=== PATIENT | male | born 1955 | race Caucasian/White ===

== ENCOUNTER 2020-12-22 20:32 | Inpatient (IN) | payer MEDICARE, OTHER ==
[~2020-12-22] VITALS: Ht 172.7 cm; Wt 53.5 kg
--- NOTE | 2020-12-22 21:14 | NUR ---
ELLIOTT (SISTER) [phone] JULIA (NIECE) [phone]
[2020-12-22] MEDS ORDERED: ONDANSETRON HCL/PF 4 MG/2 ML VIAL ONE (21:21)
[2020-12-22] MEDS ORDERED: IV NS 0.9% 1,000 ML BAG IV ONE (21:30)
[2020-12-22] MEDS ORDERED: ONDANSETRON HCL/PF 4 MG/2 ML VIAL IVP ONE (21:30)
[2020-12-22] MEDS ORDERED: PIPERACILLIN /TAZOBACTAM 3.375 G in IV D5W 50 ML IV ONE (21:30)
--- NOTE | 2020-12-22 21:30 | NUR ---
PT TAKEN TO CT
[2020-12-22] MEDS ORDERED: PIPERACILLIN /TAZOBACTAM 3.375 G VIAL IV ONE (21:35)
--- NOTE | 2020-12-22 21:49 | NUR ---
CONSENT FOR PICC INSERTION OBTAINED
[2020-12-22 22:27] LABS: BASOPHILS % (AUTO) 0.1 % (0.0-2.0); HEMOGLOBIN 10.5 g/dL (13.5-17.5); LYMPHOCYTES # (AUTO) 0.4 K/uL (0.8-4.8); MONOCYTES # (AUTO) 0.8 K/uL (0.1-1.30); NEUTROPHILS # (AUTO) 7.7 K/uL (1.8-8.9)
[2020-12-22 22:39] LABS: CALCIUM, SERUM 9.3 mg/dL (8.5-10.1); CARBON DIOXIDE 33 mmol/L (21-32); CHLORIDE 92 mmol/L (98-107); CREATININE 2.5 mg/dL (0.6-1.3); GLUCOSE 55 mg/dL (74-106); POTASSIUM 3.4 mmol/L (3.5-5.1); SODIUM SERUM 132 mmol/L (136-145); UREA NITROGEN, BLOOD 29 mg/dL (7-18)
[2020-12-22 22:45] LABS: ALANINE AMINOTRANSFERASE 40 U/L (12-78); ALBUMIN 2.6 g/dL (3.4-5.0); ALKALINE PHOSPHATASE 439 U/L (46-116); ASPARTATE AMINOTRANSFERASE 25 U/L (15-37); BILIRUBIN,DIRECT 0.2 mg/dL (0.0-0.2); BILIRUBIN,TOTAL 0.4 mg/dL (0.2-1.0); TOTAL PROTEIN, SERUM 6.9 g/dL (6.4-8.2)
[2020-12-22 22:46] LABS: EOSINOPHILS % (AUTO) 0.2 % (0.0-6.0); HEMATOCRIT 33 % (39-51); LYMPHOCYTES % (AUTO) 4.9 % (20.0-44.0); MEAN CORPUSCULAR HGB CONC 32 g/dl (31.0-36.0); MEAN CORPUSCULAR VOLUME 64 fL (80-96); NEUTROPHILS % (AUTO) 85.8 % (43.0-81.0); PLATELET COUNT (AUTO) 179 K/uL (150-450); RED BLOOD CELL COUNT(AUTO) 5.09 MIL/uL (4.5-6.0)
--- NOTE | 2020-12-22 23:32 | NUR ---
MIRANDA ([facility]) [phone]
[2020-12-23] MEDS ORDERED: IPRATROPIUM NEB FS 0.5 MG/2.5 ML AMPUL.NEB NEB ONE
[2020-12-23] MEDS ORDERED: ALBUTEROL FS 2.5 MG/3 ML VIAL.NEB NEB ONE
[2020-12-23] MEDS ORDERED: ONDANSETRON HCL/PF 4 MG/2 ML VIAL IVP PRN
[2020-12-23] MEDS ORDERED: methylPREDNISolone SOD SUCC 125 MG/2ML VIAL IV ONE
[2020-12-23 00:08] LABS: ABG BASE EXCESS 7.7 mmol/L; ABG OXYGEN SATURATION 99.1 % (92.0-98.5); ABG PCO2 32.5 mmHg (35.0-45.0); ABG PH 7.579 (7.350-7.450); ABG PO2 184.9 mmHg (75.0-100.0); AaDO2 495.6 mmHg; COHb 3.8 % (0.5-1.5); MetHb 0.3 % (0.0-1.5); SITE, ABG Right Radial; VENT MODE, BG NON REBREATHER
[2020-12-23] MEDS ORDERED: ALBUTEROL FS 2.5 MG/3 ML VIAL.NEB ONE (00:12)
[2020-12-23] MEDS ORDERED: IPRATROPIUM NEB FS 0.5 MG/2.5 ML AMPUL.NEB ONE (00:12)
[2020-12-23] MEDS ORDERED: methylPREDNISolone SOD SUCC 125 MG/2ML VIAL ONE (00:32)
[2020-12-23] MEDS ORDERED: DEXTROSE 50%-WATER 50 ML DISP.SYRIN IV PRN (01:00)
--- NOTE | 2020-12-23 01:29 | NUR ---
COVID SWAB COLLECETED AND SENT TO LAB
[2020-12-23 03:01] LABS: BAND % (MANUAL) 10 % (0.0-5.0); LYMPHOCYTES % (MANUAL) 3 % (16-48); METAMYELOCYTES % 1 % (0-0); MONOCYTES % (MANUAL) 6 % (0-11.0); NEUTROPHILS % (MANUAL) 80 (42-76)
--- NOTE | 2020-12-23 05:44 | NUR ---
ROOM 107 TELE
[2020-12-23 05:48] LABS: BASOPHILS % (AUTO) 0.1 % (0.0-2.0); HEMATOCRIT 33 % (39-51); HEMOGLOBIN 10.6 g/dL (13.5-17.5); LYMPHOCYTES # (AUTO) 0.3 K/uL (0.8-4.8); LYMPHOCYTES % (AUTO) 4.5 % (20.0-44.0); MEAN CORPUSCULAR HGB CONC 33 g/dl (31.0-36.0); MEAN CORPUSCULAR VOLUME 64 fL (80-96); MONOCYTES # (AUTO) 0.5 K/uL (0.1-1.30); MONOCYTES % (AUTO) 6.9 % (2.0-12.0); NEUTROPHILS % (AUTO) 88.5 % (43.0-81.0); PLATELET COUNT (AUTO) 148 K/uL (150-450); RED BLOOD CELL COUNT(AUTO) 5.15 MIL/uL (4.5-6.0); WHITE BLOOD COUNT (AUTO) 6.8 K/uL (4.3-11.0)
[2020-12-23 06:03] LABS: CALCIUM, SERUM 9.1 mg/dL (8.5-10.1); CREATININE 2.5 mg/dL (0.6-1.3); MAGNESIUM 2.4 mg/dL (1.8-2.4); POTASSIUM 3.6 mmol/L (3.5-5.1)
[2020-12-23 06:17] LABS: PHOSPHORUS 8.2 mg/dL (2.5-4.9)
[2020-12-23] MEDS ORDERED: POTASSIUM CL. PREMIX PERIPHER. 100 ML ONE (06:27)
[2020-12-23] MEDS: POTASSIUM CL. PREMIX PERIPHER. 50 ML IV SCH ×2 (06:36→07:36)
[2020-12-23] MEDS: BLOOD SUGAR DIAGNOSTIC 1 EACH STRIP IN SCH ×3 (06:36→17:40)
[2020-12-23] MEDS ORDERED: IV NS 0.9% 1,000 ML BAG IV ONE (07:30)
--- NOTE | 2020-12-23 08:16 | NUR ---
wheeled patient via gurney accompanied by rn and emt in no distress rn assigned at bedside to assume care.
--- NOTE | 2020-12-23 08:30 | NUR ---
local telephone operator note received patient from ER no upper dentures, stated that lost in er , STATED THAT PLACED IN POCKED IN GOWN , CALLED ER UNABLE TO FOUND DENTURES
--- NOTE | 2020-12-23 08:30 | NUR ---
HAY CHOPPER NOTE RECEIVED PATIENT FROM ER WITH DX SYNCOPE ALERT ORIENTED, UNDER CARE DR NELSON , PLACED ON TELE MONITOR ST117 , ON 8L SIMPLE MASK SATURATION 96%, ABDOMEN STILL DISTENDED ON N G TUBE TO LOWER INTERMITTED SUCTION WITH 600 ML DARK GREEN DRAINAGE NOTED , , RT UPPER ARM WITH PICC VEE IN PLACE, VS TAKEN ,CALL LIGHT WITHJIN REACH, WILL CONT TO MONITOR CLOSELY HOSPITAL ORIENTATION DONE , BED IN LOWEST AND LOCKED POSITION,
[2020-12-23 09:19] VITALS: BP 106/58
[2020-12-23] MEDS ORDERED: DIATR MEGLU/DIATRIZOATE SODIUM 120 ML BOTTLE (GASTROGRAPHIN) ONE (09:28)
--- NOTE | 2020-12-23 09:48 | NUR ---
TRACER BULLET CHARGING MACHINE OPERATOR NOTE CONSENT FOR X RAY SMALL BOWEL THROUGH SIGNED , TAKEN TO RADIOLOGY
--- NOTE | 2020-12-23 11:24 | NUR ---
telemetry registered nurse note unable to give Meds at this time patient in radiology department for test
[2020-12-23 12:25] VITALS: BP 92/63
[2020-12-23] MEDS ORDERED: ATOR10TA PO (12:25)
[2020-12-23] MEDS ORDERED: OLAN20TA3 PO (12:25)
[2020-12-23] MEDS ORDERED: ONDA-97 PO (12:25)
[2020-12-23] MEDS ORDERED: ALFU10TA10 PO (12:25)
[2020-12-23] MEDS ORDERED: BENZ1TAB7 PO (12:25)
[2020-12-23] MEDS ORDERED: METO25TA3 PO (12:25)
[2020-12-23] MEDS ORDERED: MULT-447 PO (12:25)
[2020-12-23] MEDS ORDERED: GABA600T12 PO (12:25)
[2020-12-23] MEDS ORDERED: CHOL100062 PO (12:25)
[2020-12-23] MEDS ORDERED: RISP0.2515 PO (12:25)
[2020-12-23] MEDS ORDERED: HYDR-4303 PO (12:25)
[2020-12-23] MEDS ORDERED: LITH300T PO (12:25)
[2020-12-23] MEDS ORDERED: LOPE2TAB25 PO (12:25)
[2020-12-23] MEDS ORDERED: INSU100V7 SQ (12:25)
[2020-12-23 12:30] LABS: BAND % (MANUAL) 5 % (0.0-5.0); LYMPHOCYTES % (MANUAL) 3 % (16-48); MONOCYTES % (MANUAL) 3 % (0-11.0); NEUTROPHILS % (MANUAL) 89 (42-76)
--- NOTE | 2020-12-23 12:43 | NUR ---
technician telecommunication systems note patient back from radiology back to intermitted suction,placed on o2 5 l nc saturation 98%, seen by pt able to get up with min assistance, seen and med lis nurse Addendum: 12/23/20 at 1250 by SHANIKA SPARKS RN spoke with dr ojeda surgeon will come soon to see patient
[2020-12-23] MEDS: HEPARIN SODIUM, PORCINE 5000 UNITS/1 ML VIAL SQ SCH ×2 (12:54→21:15)
[2020-12-23] MEDS: methylPREDNISolone SOD SUCC 40 MG/ML VIAL IV SCH (12:54)
[2020-12-23] MEDS: INSULIN REGULAR, HUMAN 100 UNIT/ML 3 ML VIAL SQ PRN ×2 (13:09→17:48)
[2020-12-23] MEDS ORDERED: IV NS 0.9% 1,000 ML IV PRN ×2 (15:00→16:00)
--- NOTE | 2020-12-23 15:00 | NUR ---
PILLOWCASE TURNER NOTE DR SNYDER AT BEDSIDE AWARE THAT PATIENT ON LOWER INTERMITTED SUCTION WITH 800 ML OF GREENISH DARK COLOR DRAINAGE
--- NOTE | 2020-12-23 15:07 | NUR ---
FACILITY SALES AND ADMIN NOTE DR SNYDER AT BEDSIDE NOTIFIED THAT PATIENT ON NPO ,OK TO START IVF AT 200 ML PER HOUR X5 HOURS THAT CHANGE TO 150 ML PER HOUR ALSO ORDERED PROTONIX AND OK ICE CHIPS AND ICE WATER , WILL MONITOR
[2020-12-23] MEDS: PANTOPRAZOLE 40 MG VIAL IV SCH (15:25)
[2020-12-23 16:00] VITALS: BP 110/55
--- NOTE | 2020-12-23 18:53 | NUR ---
RN CLOSING NOTE PT IS LYING IN BED WITH HOB AT 30 DEGREES. PT IS ALERT ORIENTED, UNDER CARE DR NELSON , PLACED ON TELE MONITOR ST117 , ON 5L NC SATURATION 98%, ABDOMEN STILL DISTENDED ON N G TUBE TO LOWER INTERMITTED SUCTION WITH 1800 ML DARK GREEN DRAINAGE NOTED, RT UPPER ARM WITH PICC VEE IN PLACE PATENT AND FLUSHED. BED IS LOCKED IN THE LOWEST POSITION, 2 GUARD RAILS RAISED, CALL JEFF WITHIN REACH, AND ALL HOSPITAL SAFETY PRECAUTIONS ARE IN PLACE. ALL PT NEEDS MET. WILL ENDORSE TO RECORD CHANGER NURSE FOR NATHANIEL. Addendum: 12/23/20 at 1929 by SHANIKA SPARKS RN noted patient urinated well keep clean dry
--- NOTE | 2020-12-23 19:00 | NUR ---
RN OPENING NOTES RECEIVED REPORT FROM MORNING NURSE. PATIENT IN BED A/O X3. ON OXYGEN INHALATION AT 4LPM VIA NASAL CANULA TOLERATED WELL SATURATION OF 99%. NO SOB, NO DISTRESS, NO PAIN AT THIS TIME. WITH IV PICC LINE AT ANDRES WITH 3 LUMENS PATENT FLUSHES WELL, NO INFILTRATION NOTED.WITH ONGOING IVF OF PNS 1L @ 150 CC/HR. WITH NGT CONNECTED TO LOW INTERMITTENT SUCTION DRAINING WITH GREENISH OUTPUT.ON [facility] PHYSICIAN WITH SINUS TACH AT 107'S. STILL ON NPO BUT OK WITH ICE CHIPS AND ICE WATER PER MD.ALL SAFETY MEASURES IN PLACE, HOB ELEVATED, SIDERAILS UP FOR SAFETY. CALL LIGHT WITHIN REACH. VITAL SIGHS TAKEN AND RECORDED. WILL CONTINUE TO MONITOR CLOSELY.
[2020-12-23] MEDS: IV NS 0.9% 1,000 ML IV PRN (20:00)
[2020-12-24] VITALS (23 sets, daily range): BP systolic 82–142; BP diastolic 29–71
--- NOTE | 2020-12-24 | NUR ---
RN NOTES BS 184MG/DL REGULAR INSULIN 3 UNITS GIVEN PER SLIDING SCALE
[2020-12-24] MEDS: INSULIN REGULAR, HUMAN 100 UNIT/ML 3 ML VIAL SQ PRN ×3 (00:01→23:57)
[2020-12-24] MEDS: BLOOD SUGAR DIAGNOSTIC 1 EACH STRIP IN SCH ×5 (02:04→23:55)
[2020-12-24] MEDS: IV NS 0.9% 1,000 ML IV PRN ×2 (03:07→10:24)
--- NOTE | 2020-12-24 06:57 | NUR ---
RN CLOSING NOTES PATIENT IN BED. A/OX3. STILL WITH IV PICC LINE PATENT CONNECTED TO PNS 1L @150CC/HR. WITH NGT CONNECTED TO LOW INTERMITTENT SUCTION WITH 500 CC BROWNISH/GREENISH OUTPUT. WITH OXYGEN INHALATION @4L VIA NC TOLERATED WELL WITH 99% SATURATION. SAFETY MEASURES IN PLACE AT ALL TIMES, HOB ELEVATED, CALL LIGHT WITHIN REACH. ALL NEEDS ATTENDED PROMPTLY. ENDORSED.
--- NOTE | 2020-12-24 07:40 | NUR ---
RN OPENING NOTE PATIENT RECEIVED IN BED, AWAKE, A&OX3. PATIENT ON 4L O2 NC WITH NO SIGNS OF LABORED BREATHING AT THIS TIME. PATIENT DOES NOT REPORT PAIN AND DOES NOT SHOW SIGNS OF DISTRESS. NG TUBE IN PLACE ON LOW INTERMITTENT SUCTIONING. RIGHT UA PICC LINE IN PLACE RUNNING NS AT 150CC/HR, LINE PATENT WITH NO SIGNS OF INFILTRATION. BED LOCKED AND IN LOWEST POSITION, CALL LIGHT WITHIN REACH, 2 SIDE RAILS UP, ALL SAFETY MEASURES IMPLEMENTED. WILL CONTINUE TO MONITOR.
[2020-12-24 08:03] LABS: ALBUMIN 2.1 g/dL (3.4-5.0); BILIRUBIN,TOTAL 0.4 mg/dL (0.2-1.0); CALCIUM, SERUM 8.6 mg/dL (8.5-10.1); CREATININE 1.4 mg/dL (0.6-1.3); MAGNESIUM 2.5 mg/dL (1.8-2.4); PHOSPHORUS 4.7 mg/dL (2.5-4.9); POTASSIUM 3.8 mmol/L (3.5-5.1); TOTAL PROTEIN, SERUM 5.7 g/dL (6.4-8.2)
[2020-12-24] MEDS: methylPREDNISolone SOD SUCC 40 MG/ML VIAL IV SCH (08:50)
[2020-12-24] MEDS: HEPARIN SODIUM, PORCINE 5000 UNITS/1 ML VIAL SQ SCH ×2 (08:50→22:07)
[2020-12-24] MEDS: PANTOPRAZOLE 40 MG VIAL IV SCH (08:50)
[2020-12-24 09:02] LABS: BASOPHILS % (AUTO) 0.2 % (0.0-2.0); EOSINOPHILS % (AUTO) 0.2 % (0.0-6.0); HEMATOCRIT 27 % (39-51); HEMOGLOBIN 8.5 g/dL (13.5-17.5); LYMPHOCYTES # (AUTO) 0.5 K/uL (0.8-4.8); LYMPHOCYTES % (AUTO) 11.4 % (20.0-44.0); MEAN CORPUSCULAR HGB CONC 32 g/dl (31.0-36.0); MEAN CORPUSCULAR VOLUME 64 fL (80-96); MONOCYTES # (AUTO) 0.6 K/uL (0.1-1.30); MONOCYTES % (AUTO) 14.6 % (2.0-12.0); NEUTROPHILS # (AUTO) 3.2 K/uL (1.8-8.9); NEUTROPHILS % (AUTO) 73.6 % (43.0-81.0); PLATELET COUNT (AUTO) 120 K/uL (150-450); RED BLOOD CELL COUNT(AUTO) 4.17 MIL/uL (4.5-6.0); WHITE BLOOD COUNT (AUTO) 4.4 K/uL (4.3-11.0)
[2020-12-24 10:49] LABS: IRON, SERUM 15 ug/dl (50-175); TOTAL IRON BINDING CAPACITY 179 ug/dl (250-450)
[2020-12-24 11:04] LABS: FERRITIN 119 ng/mL (8-388)
--- NOTE | 2020-12-24 14:35 | NUR ---
RN NOTES; PT PICKED UP BY TEST SPECIALIST FOR PROCEDURE. PT NPO. BLOOD TYPE MATCHING DONE. ALL CONSENTS SIGNED. PROCEDURE EXPLAINED, PT STATES UNDERSTANDING. PT LEFT UNIT IN STABLE CONDITION.
[2020-12-24] MEDS ORDERED: FENTANYL PF 250MCG/5ML AMPUL ONE ×2 (14:43)
[2020-12-24] MEDS ORDERED: HYDROMORPHONE INJ 2 MG/ML DISP.SYRIN ONE (14:43)
[2020-12-24] MEDS ORDERED: FAMOTIDINE/PF INJ 20 MG/2 ML VIAL IV ONE (14:44)
[2020-12-24] MEDS ORDERED: MIDAZOLAM HCL 2 MG/2ML VIAL ONE (14:44)
[2020-12-24] MEDS ORDERED: ROCURONIUM BROMIDE 50 MG/5 ML ONE (14:45)
[2020-12-24] MEDS ORDERED: LIDOCAINE 1% INJ 50 ML MDV IJ ONE (15:39)
[2020-12-24] MEDS ORDERED: BUPIVACAINE MPF 0.5% W/EPI INJ 30 ML VIAL ONE (15:39)
[2020-12-24] MEDS ORDERED: BACITRACIN ZINC OINT PACKET 1 EA PACKET TP ONE (16:11)
--- NOTE | 2020-12-24 17:40 | NUR ---
RT Pt was brought from OR to ICU, pt received orally intubated with 8.0 ET tube secured at 24cm at the lip line. Equal bilateral breath sounds and chest rise noted. Pt placed on mechanical ventilation with noted settings. Vent is plugged into red outlet. Pt is agitated at this time, no SOB or respiratory distress noted. Addendum: 12/24/20 at 1745 by THIAGO LANDAVERDE RT Amended: Links added.
[2020-12-24] MEDS: IV LR 1000 ML 1,000 ML IV PRN (18:21)
[2020-12-24] MEDS ORDERED: PROPOFOL 100 ML IV PRN (18:30)
[2020-12-24] MEDS ORDERED: PROPOFOL 10MG/ML 50ML 50 ML IV PRN (18:30)
--- NOTE | 2020-12-24 19:30 | NUR ---
BUSINESS REPRESENTATIVE NOTE RECEIVED REPORT FROM OR NURSE @2195,PATIENT S/P EXPLORATORY LAP AND RELEASE OF SMALL BOWEL OBSTRUCTION.INTUBATED10/23@LIP LEVEL.AGITATED.MACHADO CATH IN PLACE DRAINING CLEAR YELLOW URINE.ANDRES PICCLINE WITH PROPOFOL AND IVF.CALL MADE TO SIMULATION ENGINEER .TRISH MADE AWARE THAT PATIENT STILL AGITATED WITH PROPOFOL 50MCG,OK TO GO UP TO 100MCG/KG .PLACED NEW ORDER.C XRAY SHOWS ET TUBE 6 CM ABOVE SUDHIR.TO ADJUST BY RT BY TRISH.RT MADE AWARE.NEW ORDER RECEIVED FOR PHENYLEPHRINE.BP IN 80'S.REPORT GIVEN TO KRANTHI RN PM NURSE FOR NATHANIEL. ALL BELONGINGS AT BEDSIDE INCLUDE DENTURES.
[2020-12-24] MEDS: PHENYLEPHRINE 50 MG in IV NS 0.9% 245 ML IV PRN (19:55)
[2020-12-24 19:57] LABS: ABG BASE EXCESS 0.6 mmol/L; ABG OXYGEN SATURATION 96.7 % (92.0-98.5); ABG PCO2 42.1 mmHg (35.0-45.0); ABG PO2 99.6 mmHg (75.0-100.0); AaDO2 209.5 mmHg; MetHb 0.5 % (0.0-1.5); O2Hb 96.2 % (94.0-97.0); PEEP,BG 5 cm H2O; SITE, ABG Right Brachial; VT, ABG 500 mL
--- NOTE | 2020-12-24 20:00 | NUR ---
RN NOTE RECEIVED PT WITH MILD AGITATION, ON PROFOPOL RUNNING, SLOWLY BEING SEDATED. ORALLY INTUBATED CONNECTED TO MECH VENT AC 16 TV 500 FIO2 50% P 5. NEOSYNEPHRINE STARTED ORDERED PER PROTOCOL. WITH NGT CONNECTED TO SUCTION, NOTED WITH DARK GREEN DRAINAGE. MID ABDOMEN SURGICAL SITE CLEAN DRY AND INTACT. NO SIGNS OF BLEEDING NOTED. MACHADO INPLACE, DRAINING YELLOW URINE. PT WITH BILATERAL WRIST RESTRAINTS, GOOD CIRCULATION. WILL CONTINUE TO MONITOR.
--- NOTE | 2020-12-24 20:30 | NUR ---
RN NOTE ABG RESULT RELAYED TO SHEA NELSON. NO ORDER WERE MADE.
[2020-12-24] MEDS: PROPOFOL 10MG/ML 50ML 50 ML IV PRN ×2 (21:32→23:41)
[2020-12-25] VITALS (90 sets, daily range): BP systolic 82–137; BP diastolic 49–87
[2020-12-25] MEDS: PROPOFOL 10MG/ML 50ML 50 ML IV PRN ×6 (01:01→08:58)
[2020-12-25] MEDS: IV LR 1000 ML 1,000 ML IV PRN ×2 (02:37→11:12)
--- NOTE | 2020-12-25 02:53 | NUR ---
RT NOTE ETT ADVANCED 2 CM TO 26CM LIP LINE. RN BOBBY AWARE.
--- NOTE | 2020-12-25 02:56 | NUR ---
RN NOTE PT WITH EPISODE OF WAKING UP,AGITATED. ON PROPOFOL, TITRATING PER PROTOCOL. CONTINUE ON NEOSYNEPHRINE. WILL CONTINUE TO MONITOR.
[2020-12-25 04:22] LABS: BASOPHILS % (AUTO) 0.1 % (0.0-2.0); EOSINOPHILS % (AUTO) 0.1 % (0.0-6.0); HEMATOCRIT 29 % (39-51); HEMOGLOBIN 9.2 g/dL (13.5-17.5); LYMPHOCYTES # (AUTO) 0.7 K/uL (0.8-4.8); MEAN CORPUSCULAR HGB CONC 32 g/dl (31.0-36.0); MEAN CORPUSCULAR VOLUME 64 fL (80-96); MONOCYTES # (AUTO) 1.4 K/uL (0.1-1.30); MONOCYTES % (AUTO) 7.4 % (2.0-12.0); NEUTROPHILS # (AUTO) 16.1 K/uL (1.8-8.9); NEUTROPHILS % (AUTO) 88.4 % (43.0-81.0); PLATELET COUNT (AUTO) 268 K/uL (150-450); RED BLOOD CELL COUNT(AUTO) 4.53 MIL/uL (4.5-6.0); WHITE BLOOD COUNT (AUTO) 18.2 K/uL (4.3-11.0)
[2020-12-25 04:43] LABS: ALBUMIN 2.1 g/dL (3.4-5.0); BILIRUBIN,TOTAL 0.4 mg/dL (0.2-1.0); CALCIUM, SERUM 8.4 mg/dL (8.5-10.1); CREATININE 0.9 mg/dL (0.6-1.3); MAGNESIUM 2.5 mg/dL (1.8-2.4); POTASSIUM 4.1 mmol/L (3.5-5.1); TOTAL PROTEIN, SERUM 5.6 g/dL (6.4-8.2)
[2020-12-25] MEDS: MORPHINE SULFATE INJ 2 MG/ML DISP.SYRIN IV PRN ×4 (04:56→09:41)
[2020-12-25] MEDS: INSULIN REGULAR, HUMAN 100 UNIT/ML 3 ML VIAL SQ PRN ×3 (06:06→23:08)
[2020-12-25] MEDS: BLOOD SUGAR DIAGNOSTIC 1 EACH STRIP IN SCH ×4 (06:06→23:07)
[2020-12-25] MEDS: PHENYLEPHRINE 50 MG in IV NS 0.9% 245 ML IV PRN (06:37)
--- NOTE | 2020-12-25 07:09 | NUR ---
RN NOTE PT ETTUBE ADJUSTED BY RT NOW ON 26CM. FIO2 AT 40% AC 16 TV 500 P 5. TOLERATING WELL. NO SIGNS OF DISTRESS NOTED. PT SEDATED ON PROPOFOL AT 85MCG/KG/MIN. CONTINUE ON NEOSYNEPHRINE AT 1.6MCG/KG/MN. LR AT 125ML/HR. ALL INFUSING WELL. NO SIGNS OF INFILTRATION NOTED. PT SR ON TELE MONITOR. WITH NGT CONNECTED TO INTERMITTENT SUCTION. WITH ABOUT 400ML GREENISH DRAINAGE. REMAIN ON BILATERAL WRIST RESTRAINTS WITH GOOD CIRCULATION, NO SKIN BREAKDOWN NOTED. MACHADO DRAINING WELL WITH CLEAR URINE OUTPUT. WILL ENDORSE TO NEXT SHIFT NURSE FOR NATHANIEL.
--- NOTE | 2020-12-25 07:30 | NUR ---
RADIO PERSONALITY OPENING NOTE ORALLY INTUBATED PT ON VENT SETTINGS PER MD ORDER: ETT8/26 AT LIP, AC 16, TV 500, FIO2 40%, PEEP 5, TOLERATING WELL, SPO2 > 98%, BREATHING EVEN AND UNLABORED. PT SEDATED ON PROPOFOL CURRENTLY AT 85MCG/KG/MIN BUT WILL INCREASE PER PROTOCOL PT IS AGITATED. PT ON NEOSYNEPHRINE AT 1.6 MCG/KG/MN WITH STABLE BP AND INFUSING LR AT 125ML/HR. PT ANDRES PICC FLUSHED AND PATENT WITH NO SIGNS OF INFILTRATION NOTED. PT SR HR IN 70s ON BEDSIDE MONITOR. PT NGT CONNECTED TO INTERMITTENT SUCTION, DARK GREEN DRAINAGE NOTED. PT ABD DRS C/D/I, NO S/S OF BLEEDING. PT ON BILATERAL SOFT WRIST RESTRAINTS WITH GOOD CIRCULATION. MACHADO DRAINING VIA GRAVITY WITH CLEAR URINE OUTPUT. ALL PT SAFETY PRECAUTIONS IN PLACE, WILL CONT TO MONITOR
[2020-12-25] MEDS: PANTOPRAZOLE 40 MG VIAL IV SCH (08:25)
[2020-12-25] MEDS: methylPREDNISolone SOD SUCC 40 MG/ML VIAL IV SCH (08:25)
[2020-12-25] MEDS: HEPARIN SODIUM, PORCINE 5000 UNITS/1 ML VIAL SQ SCH ×2 (09:18→20:28)
--- NOTE | 2020-12-25 11:24 | NUR ---
RT PER DR DURHAM PATIENT WAS WEANED ON CPAP AND EXTUBATED TOLERATED WELL. PLACED ON SUPPLEMENTAL O2 VIA NASAL CANNULA. Addendum: 12/25/20 at 1125 by GEE MANN RT Amended: Links added.
--- NOTE | 2020-12-25 11:30 | NUR ---
RN NOTE PT EXTUBATED BY RT PER DR COBURN'S ORDER @ 4416 AFTER PT WAS PLACED ON CPAP AND TOLERATED WELL. PT CURRENTLY ON NC 2L, SPO2 . 96%, NO RESP DISTRESS NOTED. WILL MONITOR
[2020-12-25] MEDS: PIPERACILLIN /TAZOBACTAM 3.375 G in IV D5W 50 ML IV SCH ×3 (11:59→23:07)
[2020-12-25] MEDS ORDERED: MORPHINE SULFATE INJ 2 MG/ML DISP.SYRIN IV PRN ×2 (12:00→16:00)
[2020-12-25] MEDS: SOD FERRIC GLUC 125 MG in IV NS 0.9% 100 ML IV SCH (14:26)
[2020-12-25] MEDS ORDERED: risperiDONE 0.25 MG TABLET PO SCH (18:00)
[2020-12-25] MEDS ORDERED: LITHIUM CARBONATE ER 300 MG TABLET.SA PO SCH (18:00)
[2020-12-25] MEDS ORDERED: LOPERAMIDE HCL (2 MG CAP) 2 MG CAPSULE PO PRN (18:00)
[2020-12-25] MEDS ORDERED: ONDANSETRON 4 MG TAB.RAPDIS PO PRN (18:00)
[2020-12-25] MEDS: ATORVASTATIN 10 MG TABLET PO SCH (18:36)
[2020-12-25] MEDS: OLANZAPINE 10 MG TABLET PO SCH (18:36)
--- NOTE | 2020-12-25 19:26 | NUR ---
TEXTILES PRINTER CLOSING NOTE PT IN STABLE CONDITION. ON NC 2L SPO2 >97%, NO RESP DISTRESS NOTED. PT C/O ABD PAIN, MORPHINE 4MG GIVEN @ 1830. DR HOGAN AWARE. KUB ORDERED. DR SNYDER ALSO INFORMED, SAYS HE WILL CALL SHORTLY. PT BILAT SOFT WRIST RESTRAINTS STILL ON PT HAS BEEN KICKING, SCREAMING AND VERBALLY ABUSIVE, CMS INTACT. PT GASRTIC OUTPUT 400cc. ZYPREXA 20MG @ 1830. ALL PT SAFETY PRECAUTIONS IN PLACE, NATHANIEL ENDORSED TO GYPSUM CALCINER NURSE
--- NOTE | 2020-12-25 19:50 | NUR ---
RECEIVED CALL FROM DR SNYDER AND HE IS ASKING ABOUT THE PT, REPORTED TO HIM THAT PT IS STILL COMPLAINING OF ABDOMINAL PAIN DESPITE THE 4MG MORPHINE GIVEN @ 1800, DR SNYDER SAID THAT DOSE IS NOT ENOUGH FOR THE PT DUE TO HIS RECENT SURGERY HE MADE AN ORDER FOR MORPHINE 8MG IV Q2H, HE ALSO WANT TO START PT ON PO MEDICATION OF MOTRIN 800 MG Q8H RTC, GABAPENTIN 300 MG PO Q8H RTC AND TYLENOL 325 MG X2 Q8H RTC ALSO TO D/C THE NGTUBE NOTED AND CARRIED OUT
[2020-12-25] MEDS: GABAPENTIN 300 MG CAPSULE PO SCH (20:27)
[2020-12-25] MEDS: IBUPROFEN 400 MG TABLET PO SCH (20:27)
[2020-12-25] MEDS: ACETAMINOPHEN 325 MG TABLET PO SCH (20:27)
[2020-12-25] MEDS: MORPHINE SULFATE INJ 4 MG/ML DISP.SYRIN IV PRN (22:06)
[2020-12-26] VITALS (16 sets, daily range): BP systolic 94–135; BP diastolic 65–111
--- NOTE | 2020-12-26 01:13 | NUR ---
REPORTED TO PROGRAM COORDINATOR EXECUTIVE EDUCATION ILANA LYLE GEAR SETTER THAT PT IS COMPLAINING OF UNABLE TO SLEEP WITH ORDER RESTORIL 30 MG PO QHS PRN NOTED AND CARRIED OUT
[2020-12-26] MEDS: TEMAZEPAM 15 MG CAPSULE PO PRN (01:19)
[2020-12-26] MEDS: IV LR 1000 ML 1,000 ML IV PRN ×2 (02:15→19:49)
[2020-12-26 04:43] LABS: BASOPHILS % (AUTO) 0.1 % (0.0-2.0); HEMATOCRIT 25 % (39-51); HEMOGLOBIN 7.9 g/dL (13.5-17.5); LYMPHOCYTES # (AUTO) 0.8 K/uL (0.8-4.8); LYMPHOCYTES % (AUTO) 12.7 % (20.0-44.0); MEAN CORPUSCULAR HGB CONC 32 g/dl (31.0-36.0); MEAN CORPUSCULAR VOLUME 65 fL (80-96); MONOCYTES # (AUTO) 0.8 K/uL (0.1-1.30); MONOCYTES % (AUTO) 12.5 % (2.0-12.0); NEUTROPHILS # (AUTO) 4.5 K/uL (1.8-8.9); NEUTROPHILS % (AUTO) 73.7 % (43.0-81.0); PLATELET COUNT (AUTO) 132 K/uL (150-450); WHITE BLOOD COUNT (AUTO) 6.1 K/uL (4.3-11.0)
[2020-12-26] MEDS ORDERED: IBUPROFEN 400 MG TABLET ONE (05:00)
[2020-12-26] MEDS: IBUPROFEN 400 MG TABLET PO SCH ×3 (05:03→21:31)
[2020-12-26] MEDS: GABAPENTIN 300 MG CAPSULE PO SCH ×3 (05:03→21:31)
[2020-12-26] MEDS: PIPERACILLIN /TAZOBACTAM 3.375 G in IV D5W 50 ML IV SCH ×3 (05:04→17:16)
[2020-12-26 05:18] LABS: CREATININE 0.6 mg/dL (0.6-1.3); MAGNESIUM 2.1 mg/dL (1.8-2.4); POTASSIUM 3.4 mmol/L (3.5-5.1)
[2020-12-26] MEDS: BLOOD SUGAR DIAGNOSTIC 1 EACH STRIP IN SCH ×3 (05:35→17:59)
[2020-12-26] MEDS: INSULIN REGULAR, HUMAN 100 UNIT/ML 3 ML VIAL SQ PRN ×3 (05:36→18:03)
--- NOTE | 2020-12-26 07:16 | NUR ---
PT ON BED AWAKE A/O X1 STILL WITH CONFUSION, NO ON RESPIRATORY DISTRESS, DENY ANY PAIN, BUT KEEP ON ASKING FOR ICE CHIP DR. SNYDER ALLOWED PT TO HAVE IT FOR NOW,BEDSIDE MONITOR READS SINUS RHYTHM 90'S STILL ON LR @ 100ML/HR, NO SIGNIFICANT CHANGES ON CONDITION NOTED ALL NEEDS ATTENDED ALL DUE MEDS GIVEN, BED ON LOWEST POSITION AND LOCKED SIDE RAILS UP X2 CALL LIGHT WITHIN REACH WILL CONT TO MONITOR
--- NOTE | 2020-12-26 07:30 | NUR ---
RN NOTES PT FOUND SEMI FOWLERS POSITION DISPLAYING NO S/S OF ACUTE DISTRESS, PT ENDORSES NO PAIN AND IS BREATHING EVEN AND UNLABORED ON 2L O2 NC. RN PERFORMED PAIN ASSESSMENT TO ENSURE PT IS NOT IN PAIN BECAUSE PT FLACC = 3. PT DENIED ALL PAIN. WHILE CONFUSED, PT ABLE TO MAKE NEEDS KNOWN. R UA PICC PATIENT AND INTACT. MACHADO CATH BELOW PATIENT DRAINING BY GRAVITY. VSS, RN WILL MONITOR AND TREAT THROUGHOUT SHIFT. SAFETY MEASURES IN PLACE, BED LOCKED AND IN LOWEST POSITION, SIDE RAILS UPX2, CALL LIGHT WITHIN REACH, BED ALARM ARMED.
[2020-12-26] MEDS: methylPREDNISolone SOD SUCC 40 MG/ML VIAL IV SCH (08:20)
[2020-12-26] MEDS: PANTOPRAZOLE 40 MG VIAL IV SCH (08:20)
[2020-12-26] MEDS: GABAPENTIN 400 MG CAPSULE PO SCH ×3 (08:21→17:13)
[2020-12-26] MEDS: BENZTROPINE MESYLATE (1 MG) 1 MG TABLET PO SCH ×2 (08:21→17:14)
[2020-12-26] MEDS: HYDROCODONE/APAP 5/325MG TABLET PO SCH ×3 (08:21→17:13)
[2020-12-26] MEDS: CHOLECALCIFEROL 1,000 UNIT TABLET (VIT D3) PO SCH (08:21)
[2020-12-26] MEDS: MULTIVIT W/MINERALS 1 TAB TABLET PO SCH (08:21)
[2020-12-26] MEDS: ACETAMINOPHEN 325 MG TABLET PO SCH ×3 (08:22→21:31)
[2020-12-26] MEDS: HEPARIN SODIUM, PORCINE 5000 UNITS/1 ML VIAL SQ SCH ×2 (08:29→21:00)
[2020-12-26] MEDS ORDERED: POTASSIUM PHOSPHATE MM 15 MMOL in IV NS 0.9% 250 ML IV SCH (08:30)
[2020-12-26] MEDS: MORPHINE SULFATE INJ 4 MG/ML DISP.SYRIN IV PRN ×3 (08:41→20:10)
--- NOTE | 2020-12-26 11:00 | NUR ---
Patient arrived via bed from ICU around 11:00am. Patient AO X 1, has episodes of confusion, reorientation provided, can follow very simple commands, no apparent distress noted, breathing even and unlabored. Admitting hospitalist made aware of the patient's arrival. Patient admitting diagnosis syncope. Patient's vital signs within normal limits, no complained of facial numbness or weakness, no extremity numbness or weakness at this time. Skin intact, warm to touch, no pallor or cyanosis noted. Abdominal dressings, intact and dry, no s/s of bleeding. Patient oriented with use of call lights, use of bed control, use of telephone and tv control, also introduces UTILITY ENGINEER and RN assigned for today, verbalized understanding and gratitude. All belongings written in the inventory list. All needs attended, kept clean and dry, call light left within reach, safety precautions in place, brakes locked, side rails up X 2, will endorse to next shift for continuity of care.
--- NOTE | 2020-12-26 11:00 | NUR ---
TRANSFER CALLED AND GAVE REPORT TO HOWIE CAST. SBAR GIVEN. PT TRANSPORTED ACCOMPANIED BY CN AND PRIMARY RN ON 2L O2 NC. PT IS STILL A&OX1, CALM AND COOPERATIVE. VSS. PT ENDORSED IN STABLE CONDITION TO 308-2. ALL QUESTIONS ANSWERED.
[2020-12-26] MEDS: SOD FERRIC GLUC 125 MG in IV NS 0.9% 100 ML IV SCH (14:58)
[2020-12-26] MEDS: OLANZAPINE 10 MG TABLET PO SCH (17:12)
[2020-12-26] MEDS: ATORVASTATIN 10 MG TABLET PO SCH (17:13)
[2020-12-26] MEDS: risperiDONE 1 MG TABLET PO SCH (17:13)
[2020-12-26] MEDS: LITHIUM CARBONATE (300 MG CAP) 300 MG CAPSULE PO SCH (17:13)
[2020-12-26] MEDS ORDERED: Medication Not On Formulary EA (Alfuzosin Hcl 10 MG) PO SCH (18:00)
--- NOTE | 2020-12-26 19:00 | NUR ---
RN CLOSING NOTES Patient lying in bed, AO X 1, has episodes of confusion, reorientation provided, can follow very simple commands, remained afebrile during shift, no apparent distress noted, no dizziness, no palpitations noted at this time. All due medications given per MD order, tolerating well. Pain medications given per MD order when non pharmacological measures ineffective. No s/s of hypo/hyperglycemia, insulin given per sliding scale, tolerating well, no change in LOC, no tremors. Sutherland catheter draining clear yellowish urine free from any sediments, no hematuria, and no unusual odor noted in urine, denies any bladder pain or discomfort, bladder non distended during shift. Patient S/P extubation yesterday, respirations even and unlabored, no SOB. All needs anticipated, kept clean and dry, safety precautions in place, brakes locked, side rails up X 2, call light left within reach, will endorse to next shift for continuity of care.
--- NOTE | 2020-12-26 20:38 | NUR ---
INSPECTOR WATER POLLUTION CONTROL NOTES PT AGITATED AND RESTLESS, ABDOMEN DISTENDED. ABD DRESSING C/D/I. NO S/SX OF ANY BLEEDING NOTED. PT STATES "I'M NOT FEELING GOOD." NOTIFIED ILANA LYLE ELECTRIC RANGE ASSEMBLER FOR [facility]. ORDERS NOTED AND CARRIED OUT. WILL CONTINUE TO MONITOR.
[2020-12-26] MEDS: TERAZOSIN HCL 5 MG CAPSULE PO SCH (20:39)
--- NOTE | 2020-12-26 20:50 | NUR ---
CORE PLACER NOTES PER RADIOLOGY, THEIR COMPUTER IS TAKING A WHILE TO DOWNLOAD, MIGHT TAKE COUPLE OF HOURS FOR THE RESULT. NOTIFIED ILANA LYLE.
--- NOTE | 2020-12-26 21:00 | NUR ---
DIRECTOR OF STRATEGIC PROGRAMS NOTES PT WENT DOWN TO RADIOLOGY FOR CT ABD WITHOUT CONTRAST. WILL CONTINUE TO MONITOR
--- NOTE | 2020-12-26 21:00 | NUR ---
RN NOTE HEPARIN NON-ADMINISTERED. PLATELET OF 132. NO S/S OF BLEEDING NOTED.
--- NOTE | 2020-12-26 21:10 | NUR ---
EXTERMINATOR HELPER NOTES REPORT GIVEN TO GORDON CABRERA RN FOR CONTINUITY OF CARE. ENDORSED ACCORDINGLY.
[2020-12-26 21:33] LABS: CALCIUM, SERUM 8.7 mg/dL (8.5-10.1); CREATININE 0.7 mg/dL (0.6-1.3); POTASSIUM 3.7 mmol/L (3.5-5.1)
[2020-12-26] MEDS ORDERED: HYDROMORPHONE INJ 2 MG/ML DISP.SYRIN IV PRN (22:30)
--- NOTE | 2020-12-26 23:18 | NUR ---
RN NOTE VERBAL CONSENT OBTAINED FROM PATIENTS BROTHER, PABLO RICHARD, FOR CT PULMONARY ANGIOGRAM. TWO RN VERIFICATION WITHMERCY.
[2020-12-26] MEDS ORDERED: CT SWABBABLE VALVE TRANS SET 1 EA INFUS.SET MC ONE (23:21)
[2020-12-26] MEDS ORDERED: IOHEXOL-350 100 ML VIAL IV ONE (23:21)
[2020-12-26] MEDS ORDERED: IV NS 0.9% 250 ML IV ONE (23:22)
--- NOTE | 2020-12-26 23:40 | NUR ---
RN/ICU-RECEIVED PT. FROM [facility] BY BED TELE PER ACLS PROTOCOL, FOR TACHYCARDIA AND ABDOMINAL PAIN(PER DNP VALDO STOMACH IS EXTREMELY DISTENDED W/ AIR FLUID LEVELS IN THE SMALL BOWEL). ROUTINE ICU ADMISSION CARE INITIATED. PT. VERY LETHARGIC, RECEIVED DILAUDID 2 MGS SIVP EARLIER FROM [facility]. NO S/S OF PAIN AT THIS TIME.PT. REMAINS DISTENDED, W/ VERY HYPOACTIVE BS. NGT TO LOW INTERMITTENT SUCTION, DRAINING TO MODERATE AMOUNT OF GREENISH GI CONTENTS. AFEBRILE.ST HR-110/MIN. BP-100/65. PT. IS A FULL CODE.WILL CONTINUE TO MONITOR PER PROTOCOL.
--- NOTE | 2020-12-26 23:45 | NUR ---
RN NOTE PATIENT TRANSFERRED TO ICU FROM CT FOR CONTINUATION OF CARE. REPORT GIVEN TO HOWIE MCGRATH. ACLS PROTOCOL OBSERVED.
--- NOTE | 2020-12-26 23:50 | NUR ---
RN NOTE RECEIVED A CALL FROM DR. LYLE'S STUDENT FOR STAT NASOGASTRIC TUBE PLACEMENT ON LOW INTERMITTENT SUCTION. DR LYLE INSERTED NG TUBE 16FR AT BEDSIDE. 2600 ML OF ALEJANDRA/BROWN FLUIDS COLLECTED.
[2020-12-27] VITALS (40 sets, daily range): BP systolic 81–126; BP diastolic 48–94
[2020-12-27] MEDS: PIPERACILLIN /TAZOBACTAM 3.375 G in IV D5W 50 ML IV SCH ×5 (00:01→23:05)
[2020-12-27] MEDS: BLOOD SUGAR DIAGNOSTIC 1 EACH STRIP IN SCH ×5 (00:08→23:26)
[2020-12-27] MEDS: INSULIN REGULAR, HUMAN 100 UNIT/ML 3 ML VIAL SQ PRN ×4 (00:10→23:28)
--- NOTE | 2020-12-27 00:30 | NUR ---
RN/ICU-PT. REMAINS VERY LETHARGIC, AROUSABLE, NODS HEAD APPROPRIATELY TO QUESTION IF IN PAIN, DENIES PAIN AT THIS TIME. REPORT GIVEN TO HOWIE ASTUDILLO.
--- NOTE | 2020-12-27 00:30 | NUR ---
RN NOTE RECEIVED PATIENT IN BED. A/OX1, CONFUSED, FOLLOWS COMMANDS. ON NONREBREATHER 15L/MIN. RESPIRATIONS ARE EVEN AND UNLABORED. SPO2 100%. NO S/S PAIN NOTED. IV ACCESS IN ANDRES PICC LINE RUNNING LR@100ML/HR. TELE MONITOR READS SINUS TACHYCARDIA HR 107. RIGHT NARE NGT TO LOW INTERMITTENT SUCTION, GREEN SECRETIONS. MACHADO CATHETER IS PRESENT, DRAINING TO GRAVITY, URINE IS YELLOW. DR. ILANA LYLE AT BEDSIDE,. BP 81/63 RECEIVED VERBAL ORDER FOR 500ML NS BOLUS. ORDER VERBALIZED BACK AND CARRIED OUT. BED IS LOW AND LOCKED, HOB ELEVATED IN HIGH FOWLERS, SIDE RAILS UP X3, CALL LIGHT WITHIN REACH.
[2020-12-27] MEDS ORDERED: IV NS 0.9% 500 ML IV ONE (01:30)
--- NOTE | 2020-12-27 02:15 | NUR ---
RT NOTE PT SWITCHED FROM 100% NONREBREATHER MASK TO SIMPLE MASK 10LPM. PT TOLERATING WELL. WILL CONTINUE TO MONITOR.
[2020-12-27 04:23] LABS: EOSINOPHILS % (AUTO) 0.4 % (0.0-6.0); HEMATOCRIT 28 % (39-51); HEMOGLOBIN 8.8 g/dL (13.5-17.5); LYMPHOCYTES # (AUTO) 0.5 K/uL (0.8-4.8); LYMPHOCYTES % (AUTO) 8.1 % (20.0-44.0); MEAN CORPUSCULAR HGB CONC 32 g/dl (31.0-36.0); MEAN CORPUSCULAR VOLUME 64 fL (80-96); MONOCYTES # (AUTO) 0.5 K/uL (0.1-1.30); MONOCYTES % (AUTO) 9.4 % (2.0-12.0); NEUTROPHILS # (AUTO) 4.7 K/uL (1.8-8.9); NEUTROPHILS % (AUTO) 82.1 % (43.0-81.0); PLATELET COUNT (AUTO) 164 K/uL (150-450); RED BLOOD CELL COUNT(AUTO) 4.31 MIL/uL (4.5-6.0); WHITE BLOOD COUNT (AUTO) 5.7 K/uL (4.3-11.0)
[2020-12-27 04:30] LABS: CALCIUM, SERUM 8.5 mg/dL (8.5-10.1); CREATININE 0.6 mg/dL (0.6-1.3); MAGNESIUM 1.8 mg/dL (1.8-2.4); PHOSPHORUS 2.5 mg/dL (2.5-4.9); POTASSIUM 3.4 mmol/L (3.5-5.1)
[2020-12-27] MEDS: IBUPROFEN 400 MG TABLET PO SCH ×3 (05:00→20:50)
[2020-12-27] MEDS: GABAPENTIN 300 MG CAPSULE PO SCH ×3 (05:00→20:50)
--- NOTE | 2020-12-27 07:20 | NUR ---
RN NOTE PATIENT IN BED. IS MORE ALERT BUT LETHARGIC. REMAINS ON NONREBREATHER 15L/MIN. TRIED TO TITRATE TO 10L SIMPLE MASK BUT REDRAW FOR ABG'S SUGGEST 15L NONREBREATHER. ILANA LYLE AWARE. PATIENT IS MOANING IF HER IS IN PAIN, BUT ONCE ASKED HE STATES NO PAIN. IV ACCESS IN ANDRES PICC LINE RUNNING LR@100ML/HR. TELE MONITOR READS SINUS TACHYCARDIA HR 120S. RIGHT NARE NGT REMAINS CONNECTED TO LIS, SECRETIONS GREEN 700ML OUTPUT. MACHADO CATHETER IS OUTPUT 525 YELLOW. BED REMAINS LOW AND LOCKED, HOB ELEVATED IN HIGH FOWLERS, SIDE RAILS UP X3, CALL LIGHT WITHIN REACH. WILL ENDORSE TO ONCOMING SHIFT.
--- NOTE | 2020-12-27 08:07 | NUR ---
placed into simple mask @ 10 lpm Oxygen flow. suction large amount pale yellow secretions. spo2 94% on 10L simple mask. Addendum: 12/27/20 at 0809 by CYNTHIA PORTILLO RT Amended: Links added.
[2020-12-27] MEDS: CHOLECALCIFEROL 1,000 UNIT TABLET (VIT D3) PO SCH (09:05)
[2020-12-27] MEDS: GABAPENTIN 400 MG CAPSULE PO SCH ×3 (09:06→16:03)
[2020-12-27] MEDS: HYDROCODONE/APAP 5/325MG TABLET PO SCH ×3 (09:06→16:03)
[2020-12-27] MEDS: MULTIVIT W/MINERALS 1 TAB TABLET PO SCH (09:06)
[2020-12-27] MEDS: BENZTROPINE MESYLATE (1 MG) 1 MG TABLET PO SCH ×2 (09:06→16:03)
[2020-12-27] MEDS: ACETAMINOPHEN 325 MG TABLET PO SCH ×3 (09:06→20:50)
[2020-12-27] MEDS: PANTOPRAZOLE 40 MG/PACK PACK PO SCH (09:07)
[2020-12-27] MEDS: HEPARIN SODIUM, PORCINE 5000 UNITS/1 ML VIAL SQ SCH ×2 (09:07→20:52)
[2020-12-27] MEDS: methylPREDNISolone SOD SUCC 40 MG/ML VIAL IV SCH (09:07)
[2020-12-27] MEDS: POTASSIUM CL. PREMIX PERIPHER. 50 ML IV SCH ×2 (09:11→11:20)
[2020-12-27] MEDS: IV LR 1000 ML 1,000 ML IV PRN ×2 (10:34)
[2020-12-27] MEDS: HYDROMORPHONE 1 MG/1 ML DISP.SYRIN IV PRN ×2 (10:53→11:47)
--- NOTE | 2020-12-27 11:00 | NUR ---
RN NOTE PT HR 150 AND SHIVERING CHECKED TEMP AND IS 101.8 WILL ADMINISTER TYLENOL
[2020-12-27] MEDS: ACETAMINOPHEN 325 MG TABLET PO PRN (11:19)
--- NOTE | 2020-12-27 12:00 | NUR ---
RN NOTE PT BS 149. PT IS NPO SINCE YESTERDAY. WILL HOLD INSULIN
--- NOTE | 2020-12-27 12:20 | NUR ---
RN NOTE PT REMOVED NG TUBE. PLACED NEW NG TUBE. 2 RNS VERIFIED WITH MELISA (RN). BILE OUTPUT IS NOW 700ML POST NEW NG TUBE.
[2020-12-27] MEDS ORDERED: TPN/PPN PER PHARMACY XX PRN (12:30)
--- NOTE | 2020-12-27 12:33 | NUR ---
Next of Kin: Brother, Lalit Plaza [phone] for consent and pt.'s niece, Lashanda [phone] would like to be updated about pt.'s condition. SW will be available as needed.
[2020-12-27] MEDS ORDERED: TPN BAG #1 IV SCH (15:00)
[2020-12-27] MEDS: SOD FERRIC GLUC 125 MG in IV NS 0.9% 100 ML IV SCH (15:04)
[2020-12-27] MEDS: OLANZAPINE 10 MG TABLET PO SCH (17:33)
[2020-12-27] MEDS: LITHIUM CARBONATE (300 MG CAP) 300 MG CAPSULE PO SCH (17:33)
[2020-12-27] MEDS: TERAZOSIN HCL 5 MG CAPSULE PO SCH (17:33)
[2020-12-27] MEDS: ATORVASTATIN 10 MG TABLET PO SCH (17:33)
[2020-12-27] MEDS: risperiDONE 1 MG TABLET PO SCH (17:34)
--- NOTE | 2020-12-27 19:26 | NUR ---
RN NOTE PT SAT >95% ON 10L NC. PATIENT A/OX1, DOES NOT KNOW WHERE HE IS. TOTAL URINE OUTPUT IS 500 AND NGT IS 1400. ABDOMINAL INCISION INTACT AND PATENT. ABD DISTENTION PRESENT. PT IS NPO. BS 172 AND COVERED WITH 3 UNITS/ PSYCH CONSULT COMPLETED. NEW NG TUBE PLACED IN RIGHT NARE. TPN RUNNING AT 40CC WITH LR AT 60CC. PT PLACED ON LOWEST BED POSITION.
--- NOTE | 2020-12-27 19:30 | NUR ---
RN OPENING NOTES: RECEIVED PT A/OX2-3 IN BED IN NO S/SX OF ACUTE DISTRESS AT THIS TIME. NO SOB NOTED. PATIENT'S BREATHING IS EVEN AND UNLABORED. PATIENT IS ON 10L OF OXYGEN VIA SIMPLE MASK; TOLERATING WELL. PATIENT ON TELE MONITORING READING SINUS TACHY HR IS @100s AT THE TIME OF RECEIVED. PATIENT CURRENTLY ON NPO EXCEPT MEDS. PT HAS NGT ON R NARE CONNECTED ON LOW INTERMITTENT SUCTION WITH 100CC OF GREENISH COLORED OUTPUT NOTED AT THE TIME OF RECEIVED. NOTED IV SITE ON R UA PICC ; PATENT, INTACT AND FLUSHING WELL; NO S/S OF INFECTION OR INFILTRATION. WITH IV FLUID RUNNING ORDERED. ALSO HAS A RUNNING TPN @ 40CC/HR; INFUSING WELL. WITH ABD DRESSING IN PLACE DRY AND INTACT ;NO SIGNS OF BLEEDING OR INFECTION. MACHADO CATH IN PLACE, MODERATE URINE OUTPUT NOTED. SAFETY MEASURES HAVE BEEN PROVIDED AND IMPLEMENTED. PATIENT BED ALARM IS ON. HEAD OF BED ELEVATED. BED IS LOCKED, IN LOWEST POSITION AND SIDE RAILS UP. CALL LIGHT WITHIN REACH OF THE PATIENT. APPLICABLE ISOLATION PRECAUTIONS IN PLACE. WILL CONTINUE TO MONITOR AND REASSESS FOR ANY CHANGES AND WILL CARRY OUT ANY ONGOING AND ACTIVE MD ORDER.
--- NOTE | 2020-12-27 22:45 | NUR ---
RN NOTES FAMILY CALLED (MIRANDA- [phone]) PROVIDED GENERAL UPDATES ; NEURO STATUS, BASIC TX AND V/S. ADVISED TO CALL IN THE AM IF NEED SPECIFIC INFO FROM MD, FAMILY ACKNOWLEDGED. ADVISED THAT RN WILL GIVE A CALL IF THERE'S ANY SIGNIFICANT UPDATES OR CHANGES TO PT. MIRANDA ACKNOWLEDGED.
[2020-12-27] MEDS: TEMAZEPAM 15 MG CAPSULE PO PRN (23:44)
[2020-12-28] VITALS (23 sets, daily range): BP systolic 91–119; BP diastolic 58–77
--- NOTE | 2020-12-28 | NUR ---
RN NOTES PATIENT REMAINED TO BE IN NO SIGNS OF ACUTE RESPIRATORY DISTRESS , VITAL SIGNS STABLE AT THIS TIME. REGULAR TURNING AND REPOSITIONING DONE. WILL CONTINUE TO MONITOR AND REASSESS FOR ANY CHANGES THROUGHOUT THE SHIFT.
--- NOTE | 2020-12-28 04:00 | NUR ---
RN NOTES NO NOTED CHANGES IN PATIENT CONDITION AT THIS TIME; PATIENT VITALS STABLE, NO SIGNS OF ACUTE RESPIRATORY DISTRESS. AM PATIENT CARE RENDERED.WILL CONTINUE TO MONITOR AND REASSESS FOR ANY CHANGES THROUGHOUT THE SHIFT.
[2020-12-28 04:28] LABS: BASOPHILS % (AUTO) 0.3 % (0.0-2.0); EOSINOPHILS % (AUTO) 0.7 % (0.0-6.0); HEMATOCRIT 25 % (39-51); HEMOGLOBIN 7.9 g/dL (13.5-17.5); LYMPHOCYTES # (AUTO) 0.6 K/uL (0.8-4.8); MEAN CORPUSCULAR HGB CONC 31 g/dl (31.0-36.0); MEAN CORPUSCULAR VOLUME 64 fL (80-96); MONOCYTES # (AUTO) 0.7 K/uL (0.1-1.30); MONOCYTES % (AUTO) 11.5 % (2.0-12.0); NEUTROPHILS # (AUTO) 4.5 K/uL (1.8-8.9); NEUTROPHILS % (AUTO) 76.5 % (43.0-81.0); PLATELET COUNT (AUTO) 195 K/uL (150-450); RED BLOOD CELL COUNT(AUTO) 3.93 MIL/uL (4.5-6.0); WHITE BLOOD COUNT (AUTO) 5.9 K/uL (4.3-11.0)
[2020-12-28] MEDS: IBUPROFEN 400 MG TABLET PO SCH ×3 (04:45→20:13)
[2020-12-28] MEDS: GABAPENTIN 300 MG CAPSULE PO SCH ×3 (04:45→20:13)
[2020-12-28 04:59] LABS: CALCIUM, SERUM 8.3 mg/dL (8.5-10.1); CREATININE 0.6 mg/dL (0.6-1.3); MAGNESIUM 1.7 mg/dL (1.8-2.4); PHOSPHORUS 2.4 mg/dL (2.5-4.9); POTASSIUM 3.2 mmol/L (3.5-5.1)
[2020-12-28] MEDS: PIPERACILLIN /TAZOBACTAM 3.375 G in IV D5W 50 ML IV SCH ×4 (05:00→23:36)
[2020-12-28] MEDS: BLOOD SUGAR DIAGNOSTIC 1 EACH STRIP IN SCH ×4 (05:09→23:33)
[2020-12-28] MEDS: INSULIN REGULAR, HUMAN 100 UNIT/ML 3 ML VIAL SQ PRN ×4 (05:20→23:34)
--- NOTE | 2020-12-28 06:55 | NUR ---
RN CLOSING NOTE: PATIENT REMAINS IN ROOM IN NO SIGNS OF RESPIRATORY DISTRESS, PATIENT STILL ON 10L VIA SIMPLE MASK ;TOLERATING WELL SATURATING @ >95% SP02. SAFETY MEASURES IMPLEMENTED, BED IN LOWEST POSITION, LOCKED, SIDE RAILS UP, CALL LIGHT WITHIN REACH. ALL NEEDS AND ORDERS ADDRESSED DURING THE SHIFT. IV ACCESS MAINTAINED INTACT, SECURED AND FLUSHING WELL. ALL DUE MEDS GIVEN ORDERED & SCHEDULED ; PATIENT TOLERATED WELL. PATIENT KEPT CLEAN AND COMFORTABLE WITHIN THE SHIFT. PATIENT ENDORSED TO INCOMING SHIFT RN FOR CONTINUITY OF CARE.
--- NOTE | 2020-12-28 07:30 | NUR ---
RN NOTE PATIENT OBSERVED IN BED AWAKE, ON O2 VIA SIMPLE MASK@ 10LPM O2 SAT OF 98% ON TELE MONITOR SR HR OF 99, NPO EXCEPT MEDICATION, WITH RIGHT UPPER PICC LINE NOTED, WITH TPN RUNNING @ 40CCHR PATENT INFUSING WELL, AFEBRILE AT THIS TIME, PATIENT WITH MACHADO CATHETER DRAINING WELL NO HEMATURIA NOTED, ACCU CHECK PER SLIDING SCALE, WITH LR @ 60CC/HR INFUSING WELL, WILL CONTINUE TO MONITOR FOR CHANGE OF CONDITION, SAFETY MEASURE OBSERVED, CALL LIGHT WITHIN REACH, BED WHEELS LOCK.
--- NOTE | 2020-12-28 08:15 | NUR ---
RN NOTE PATIENT SEEN BY DR. ANTUNEZ, PATIENT IN NPO AT THIS TIME, DR. ANTUNEZ ORDERED ICE CHIPS FOR ORAL GRATIFICATION, ORDERS NOTED AND CARRIED OUT.
[2020-12-28] MEDS: methylPREDNISolone SOD SUCC 40 MG/ML VIAL IV SCH (08:51)
[2020-12-28] MEDS: POTASSIUM PHOSPHATE MM 7.5 MMOL in IV NS 0.9% 100 ML IV SCH ×2 (08:52→11:39)
[2020-12-28] MEDS: PANTOPRAZOLE 40 MG/PACK PACK PO SCH (08:53)
[2020-12-28] MEDS: CHOLECALCIFEROL 1,000 UNIT TABLET (VIT D3) PO SCH (08:53)
[2020-12-28] MEDS: BENZTROPINE MESYLATE (1 MG) 1 MG TABLET PO SCH ×2 (08:53→17:22)
[2020-12-28] MEDS: GABAPENTIN 400 MG CAPSULE PO SCH ×3 (08:54→17:23)
[2020-12-28] MEDS: risperiDONE 1 MG TABLET PO SCH ×2 (08:54→17:22)
[2020-12-28] MEDS: MULTIVIT W/MINERALS 1 TAB TABLET PO SCH (08:54)
[2020-12-28] MEDS: HYDROCODONE/APAP 5/325MG TABLET PO SCH ×3 (08:54→17:23)
[2020-12-28] MEDS: OLANZAPINE 5 MG TABLET PO SCH (08:55)
[2020-12-28] MEDS: ACETAMINOPHEN 325 MG TABLET PO SCH ×3 (08:57→20:14)
[2020-12-28] MEDS: HEPARIN SODIUM, PORCINE 5000 UNITS/1 ML VIAL SQ SCH ×2 (08:57→20:15)
[2020-12-28] MEDS: Magnesium 1GM/D5W 100ML PREMIX 100 ML IV SCH ×2 (09:32→10:39)
--- NOTE | 2020-12-28 10:49 | NUR ---
RN NOTE PATIENT SEEN EDISON DOVER, UPDATED REGARDING PATIENT CONDITION. WILL CONTINUE TO MONITOR FOR NATHANIEL.
[2020-12-28] MEDS: POTASSIUM CL. PREMIX PERIPHER. 50 ML IV SCH ×5 (11:18→15:32)
[2020-12-28] MEDS ORDERED: TPN BAG #2 IV SCH (15:00)
[2020-12-28] MEDS ORDERED: POTASSIUM CL. PREMIX PERIPHER. 50 ML IV SCH (15:30)
--- NOTE | 2020-12-28 15:51 | NUR ---
RN NOTE POTASSIUM 10 MEQ 1300 NOT GIVEN RESCHEDULED AND ADMINISTERED AT 1530
[2020-12-28] MEDS: FAT EMULSION 20% 500 ML in PREMIX 1 EA IV SCH (15:56)
[2020-12-28] MEDS: SOD FERRIC GLUC 125 MG in IV NS 0.9% 100 ML IV SCH (16:11)
[2020-12-28] MEDS: OLANZAPINE 10 MG TABLET PO SCH (17:22)
[2020-12-28] MEDS: ATORVASTATIN 10 MG TABLET PO SCH (17:23)
[2020-12-28] MEDS: TERAZOSIN HCL 5 MG CAPSULE PO SCH (17:23)
[2020-12-28] MEDS: LITHIUM CARBONATE (300 MG CAP) 300 MG CAPSULE PO SCH (17:23)
[2020-12-28] MEDS: IV LR 1000 ML 1,000 ML IV PRN ×2 (17:26)
--- NOTE | 2020-12-28 18:50 | NUR ---
RN NOTE PATIENT OBSERVED IN BED AWAKE, ON O2 VIA SIMPLE MASK@ 10LPM O2 SAT OF 98% BREATHING EVEN AND UNLABORED, ON TELE MONITOR SR HR OF 99, NPO EXCEPT MEDICATION, WITH RIGHT UPPER PICC LINE NOTED, WITH TPN RUNNING @ 40CCHR PATENT INFUSING WELL, AFEBRILE AT THIS TIME, PATIENT WITH MACHADO CATHETER DRAINING WELL NO HEMATURIA NOTED, WITH NGT ON INTERMITTENT SUCTION. ACCU CHECK PER SLIDING SCALE, WITH LR @ 60CC/HR INFUSING WELL, ON LIPID RUNNING ON 20.83 CC/HR RUNNING WELL,WILL CONTINUE TO MONITOR FOR CHANGE OF CONDITION, SAFETY MEASURE OBSERVED, CALL LIGHT WITHIN REACH, BED WHEELS LOCK. WILL ENDORSE TO NOC SHIFT.
--- NOTE | 2020-12-28 19:00 | NUR ---
RN NOTE RECEIVED PATIENT IN BED, ON HIGH CONN'S, AO X 4, IN NO S/SX OF ACUTE DISTRESS AT THIS TIME. RESPIRATIONS EVEN AND UNLABORED, SATURATION AT 100% ON 10L VIA O2 MASK, SR ON THE MONITOR, HR IS 77. NOTED ANDRES PICC LINE, ALL HUBS PATENT AND FLUSHING WELL, NO S/S OF INFECTION, WITH LR INFUSING AT 60 ML/HR, TPN AT 40 ML/HR, AND LIPIDS AT 20.833 ML/HR. NOTED NGTUBE AT R NARE CONNECTED TO LOW INTERMITTENT SUCTION, DRAINING TO A MODERATE AMOUNT OF GREENISH OUTPUT. SAFETY MEASURES IMPLEMENTED. PATIENT BED ALARM IS ON. HEAD OF BED ELEVATED. BED IS LOCKED, IN LOWEST POSITION AND SIDE RAILS UP. CALL LIGHT WITHIN REACH OF THE PATIENT. WILL CONTINUE TO MONITOR AND REASSESS FOR ANY CHANGES. Addendum: 12/29/20 at 0008 by NAIF YOUNG RN MACHADO CATHETER CONNECTED TO URINE BAG IN PLACE, DRAINING TO A CLEAR, YELLOW OUTPUT
[2020-12-28] MEDS: ACETAMINOPHEN 325 MG TABLET PO PRN (23:41)
[2020-12-29] VITALS: BP 102/79
[2020-12-29] MEDS: HYDROMORPHONE 1 MG/1 ML DISP.SYRIN IV PRN (02:51)
[2020-12-29 04:00] VITALS: BP 114/69
[2020-12-29] MEDS: GABAPENTIN 300 MG CAPSULE PO SCH ×3 (05:04→21:15)
[2020-12-29] MEDS: IBUPROFEN 400 MG TABLET PO SCH ×3 (05:04→21:15)
[2020-12-29] MEDS: PIPERACILLIN /TAZOBACTAM 3.375 G in IV D5W 50 ML IV SCH ×4 (05:05→23:46)
[2020-12-29] MEDS: BLOOD SUGAR DIAGNOSTIC 1 EACH STRIP IN SCH ×3 (05:23→18:50)
[2020-12-29] MEDS: INSULIN REGULAR, HUMAN 100 UNIT/ML 3 ML VIAL SQ PRN ×3 (05:25→18:50)
[2020-12-29 06:19] LABS: BASOPHILS % (AUTO) 0.1 % (0.0-2.0); EOSINOPHILS % (AUTO) 1.2 % (0.0-6.0); HEMATOCRIT 26 % (39-51); HEMOGLOBIN 8.2 g/dL (13.5-17.5); LYMPHOCYTES # (AUTO) 0.6 K/uL (0.8-4.8); LYMPHOCYTES % (AUTO) 9.8 % (20.0-44.0); MEAN CORPUSCULAR HGB CONC 32 g/dl (31.0-36.0); MEAN CORPUSCULAR VOLUME 64 fL (80-96); MONOCYTES # (AUTO) 0.4 K/uL (0.1-1.30); MONOCYTES % (AUTO) 7.9 % (2.0-12.0); NEUTROPHILS # (AUTO) 4.6 K/uL (1.8-8.9); PLATELET COUNT (AUTO) 214 K/uL (150-450); RED BLOOD CELL COUNT(AUTO) 4.04 MIL/uL (4.5-6.0); WHITE BLOOD COUNT (AUTO) 5.7 K/uL (4.3-11.0)
[2020-12-29 06:52] LABS: CALCIUM, SERUM 8.2 mg/dL (8.5-10.1); CREATININE 0.5 mg/dL (0.6-1.3); MAGNESIUM 1.9 mg/dL (1.8-2.4); PHOSPHORUS 2.2 mg/dL (2.5-4.9); POTASSIUM 3.2 mmol/L (3.5-5.1)
[2020-12-29 08:00] VITALS: BP 114/69
[2020-12-29] MEDS: POTASSIUM CL. PREMIX PERIPHER. 50 ML IV SCH ×4 (08:30→13:26)
[2020-12-29] MEDS ORDERED: NEUTRA PHOS 1 POWD.PACKET PO ONE (08:30)
[2020-12-29] MEDS: BENZTROPINE MESYLATE (1 MG) 1 MG TABLET PO SCH ×2 (08:30→18:32)
[2020-12-29] MEDS: CHOLECALCIFEROL 1,000 UNIT TABLET (VIT D3) PO SCH (08:30)
[2020-12-29] MEDS: GABAPENTIN 400 MG CAPSULE PO SCH ×3 (08:30→18:31)
[2020-12-29] MEDS: PANTOPRAZOLE 40 MG/PACK PACK PO SCH (08:31)
[2020-12-29] MEDS: methylPREDNISolone SOD SUCC 40 MG/ML VIAL IV SCH (08:31)
[2020-12-29] MEDS: ACETAMINOPHEN 325 MG TABLET PO SCH ×3 (08:31→21:15)
[2020-12-29] MEDS: risperiDONE 1 MG TABLET PO SCH ×2 (08:31→18:32)
[2020-12-29] MEDS: HYDROCODONE/APAP 5/325MG TABLET PO SCH ×3 (08:31→18:32)
[2020-12-29] MEDS: OLANZAPINE 5 MG TABLET PO SCH (08:31)
[2020-12-29] MEDS: MULTIVIT W/MINERALS 1 TAB TABLET PO SCH (08:31)
[2020-12-29] MEDS: HEPARIN SODIUM, PORCINE 5000 UNITS/1 ML VIAL SQ SCH ×2 (08:33→21:20)
[2020-12-29] MEDS: IV LR 1000 ML 1,000 ML IV PRN ×2 (08:55→15:42)
--- NOTE | 2020-12-29 09:15 | NUR ---
RN NOTE PATIENT HR OF 120-125 SINUS TACHY, NO COMPLAINS OF CHEST PAIN, PATIENT IN BED AWAKE WATCHING TV AT THIS TIME, NOTIFIED STANISLAW HOGAN POTASSIUM OF 3.2 [address] AT THIS TIME.
[2020-12-29 12:00] VITALS: BP 114/69
[2020-12-29] MEDS ORDERED: IV NS 0.9% 500 ML IV ONE ×3 (12:00→23:30)
[2020-12-29] MEDS ORDERED: POTASSIUM PHOSPHATE MM 15 MMOL in IV NS 0.9% 250 ML IV SCH (13:00)
[2020-12-29] MEDS: SOD FERRIC GLUC 125 MG in IV NS 0.9% 100 ML IV SCH (14:32)
[2020-12-29] MEDS ORDERED: TPN BAG #3 IV SCH (15:00)
[2020-12-29 16:00] VITALS: BP 112/62
[2020-12-29] MEDS ORDERED: ACETAMINOPHEN 650 MG/SUPP.RECT RC ONE (16:46)
[2020-12-29] MEDS ORDERED: ACETAMINOPHEN 650 MG/SUPP.RECT RC PRN (17:00)
--- NOTE | 2020-12-29 17:00 | NUR ---
RN NOTE PATIENT TEMPERATURE OF 101.7 FEVER AND CHILLS NOTED COOLING MEASURES RENDERED, STANISLAW HOGAN AT BEDSIDE, PATIENT HR OF 150 , BP OF 135/80, BS OF 149, OXYGEN @10LPM VIA SIMPLE MASK O2 SAT OF 98%, MD ORDERED ADDITIONAL BOLUS 500 CC AND ACETAMINOPHEN 650MG SUPPOSITORY, ORDERS NOTED AND CARRIED OUT.
--- NOTE | 2020-12-29 17:49 | NUR ---
RN NOTE PATIENT TEMPERATURE OF 99.1, NO CHILLS NOTED, HR OF 120, BP OF 139/81, O2 SAT OF 99% AT 10LPM SIMPLE MASK. VTS RELAYED TO [facility]
[2020-12-29] MEDS: OLANZAPINE 10 MG TABLET PO SCH (18:23)
[2020-12-29] MEDS: TERAZOSIN HCL 5 MG CAPSULE PO SCH (18:23)
[2020-12-29] MEDS: ATORVASTATIN 10 MG TABLET PO SCH (18:23)
[2020-12-29] MEDS: LITHIUM CARBONATE (300 MG CAP) 300 MG CAPSULE PO SCH (18:23)
--- NOTE | 2020-12-29 19:30 | NUR ---
RN NOTE RECEIVED PATIENT IN BED, ON HIGH CONN'S, AO X 3-4, IN NO S/SX OF ACUTE DISTRESS AT THIS TIME. RESPIRATIONS EVEN AND UNLABORED, SATURATION AT 100% ON 10L VIA O2 MASK, ST ON THE MONITOR, HR IS 103. NOTED ANDRES PICC LINE, ALL HUBS PATENT AND FLUSHING WELL, NO S/S OF INFECTION, WITH LR INFUSING AT 60 ML/HR, AND TPN AT 50 ML/HR. NOTED NGTUBE AT R NARE CONNECTED TO LOW INTERMITTENT SUCTION, DRAINING TO A MODERATE AMOUNT OF GREENISH OUTPUT. MACHADO CATHETER CONNECTED TO URINE BAG IN PLACE, DRAINING TO A CLEAR, YELLOW OUTPUT. SAFETY MEASURES IMPLEMENTED. PATIENT BED ALARM IS ON. HEAD OF BED ELEVATED. BED IS LOCKED, IN LOWEST POSITION AND SIDE RAILS UP. CALL LIGHT WITHIN REACH OF THE PATIENT. WILL CONTINUE TO MONITOR AND REASSESS FOR ANY CHANGES.
[2020-12-29 20:00] VITALS: BP 86/56
--- NOTE | 2020-12-29 21:00 | NUR ---
RN NOTE NOTED BP 86/56, REPOSITIONED PATIENT AND ELEVATED LOWER EXTREMITIES, BP RECHECKED AND REVEALED 84/56, AND 78/47. DR LYLE WAS NOTIFIED, ORDER RECEIVED TO ADMINISTER NS 500 ML BOLUS X 1. GEOTHERMAL TECHNICIAN MULU PROCTOR
[2020-12-30] VITALS: BP 113/60
[2020-12-30] MEDS: BLOOD SUGAR DIAGNOSTIC 1 EACH STRIP IN SCH ×4 (00:02→17:06)
[2020-12-30] MEDS: INSULIN REGULAR, HUMAN 100 UNIT/ML 3 ML VIAL SQ PRN ×3 (00:05→17:16)
[2020-12-30] MEDS: HYDROMORPHONE 1 MG/1 ML DISP.SYRIN IV PRN (00:05)
[2020-12-30 04:00] VITALS: BP 95/50
[2020-12-30] MEDS: IBUPROFEN 400 MG TABLET PO SCH ×3 (05:13→20:26)
[2020-12-30] MEDS: GABAPENTIN 300 MG CAPSULE PO SCH ×3 (05:13→20:26)
[2020-12-30] MEDS: PIPERACILLIN /TAZOBACTAM 3.375 G in IV D5W 50 ML IV SCH ×3 (05:14→17:14)
[2020-12-30] MEDS: IV LR 1000 ML 1,000 ML IV PRN (06:54)
[2020-12-30 07:16] LABS: BASOPHILS % (AUTO) 0.1 % (0.0-2.0); EOSINOPHILS % (AUTO) 0.7 % (0.0-6.0); HEMATOCRIT 25 % (39-51); HEMOGLOBIN 7.7 g/dL (13.5-17.5); LYMPHOCYTES % (AUTO) 7.2 % (20.0-44.0); MEAN CORPUSCULAR HGB CONC 31 g/dl (31.0-36.0); MEAN CORPUSCULAR VOLUME 64 fL (80-96); MONOCYTES # (AUTO) 1.2 K/uL (0.1-1.30); NEUTROPHILS # (AUTO) 11.1 K/uL (1.8-8.9); PLATELET COUNT (AUTO) 144 K/uL (150-450); RED BLOOD CELL COUNT(AUTO) 3.87 MIL/uL (4.5-6.0); WHITE BLOOD COUNT (AUTO) 13.4 K/uL (4.3-11.0)
[2020-12-30 08:00] VITALS: BP 105/82
[2020-12-30 08:01] LABS: CALCIUM, SERUM 7.9 mg/dL (8.5-10.1); CREATININE 0.6 mg/dL (0.6-1.3); MAGNESIUM 1.7 mg/dL (1.8-2.4); PHOSPHORUS 2.4 mg/dL (2.5-4.9); POTASSIUM 3.4 mmol/L (3.5-5.1)
[2020-12-30] MEDS: OLANZAPINE 5 MG TABLET PO SCH (09:37)
[2020-12-30] MEDS: GABAPENTIN 400 MG CAPSULE PO SCH ×3 (09:37→17:06)
[2020-12-30] MEDS: BENZTROPINE MESYLATE (1 MG) 1 MG TABLET PO SCH ×2 (09:37→17:06)
[2020-12-30] MEDS: CHOLECALCIFEROL 1,000 UNIT TABLET (VIT D3) PO SCH (09:37)
[2020-12-30] MEDS: ACETAMINOPHEN 325 MG TABLET PO SCH ×3 (09:37→20:26)
[2020-12-30] MEDS: methylPREDNISolone SOD SUCC 40 MG/ML VIAL IV SCH (09:37)
[2020-12-30] MEDS: MULTIVIT W/MINERALS 1 TAB TABLET PO SCH (09:37)
[2020-12-30] MEDS: risperiDONE 1 MG TABLET PO SCH ×2 (09:37→17:06)
[2020-12-30] MEDS: HYDROCODONE/APAP 5/325MG TABLET PO SCH ×3 (09:38→17:06)
[2020-12-30] MEDS: PANTOPRAZOLE 40 MG/PACK PACK PO SCH (09:38)
[2020-12-30] MEDS: Magnesium 1GM/D5W 100ML PREMIX 100 ML IV SCH ×2 (09:47→12:17)
[2020-12-30] MEDS: POTASSIUM PHOSPHATE MM 15 MMOL in IV NS 0.9% 250 ML IV SCH ×2 (09:47→13:42)
[2020-12-30] MEDS ORDERED: TPN BAG #4 IV SCH (10:00)
[2020-12-30 12:00] VITALS: BP 105/72
[2020-12-30 14:12] LABS: BAND % (MANUAL) 1 % (0.0-5.0); EOSINOPHILS % (MANUAL) 1 % (0-4); LYMPHOCYTES % (MANUAL) 9 % (16-48); MONOCYTES % (MANUAL) 11 % (0-11.0); NEUTROPHILS % (MANUAL) 78 (42-76)
[2020-12-30] MEDS: FAT EMULSION 20% 500 ML in PREMIX 1 EA IV SCH (15:56)
[2020-12-30 16:00] VITALS: BP 107/65
[2020-12-30] MEDS: TERAZOSIN HCL 5 MG CAPSULE PO SCH (17:05)
[2020-12-30] MEDS: OLANZAPINE 10 MG TABLET PO SCH (17:05)
[2020-12-30] MEDS: ATORVASTATIN 10 MG TABLET PO SCH (17:05)
[2020-12-30] MEDS: LITHIUM CARBONATE (300 MG CAP) 300 MG CAPSULE PO SCH (17:06)
--- NOTE | 2020-12-30 19:00 | NUR ---
RN OPENING NOTES RECEIVED REPORT FROM MORNING NURSE. PATIENT IN BED A/O X3-4. WITH NGT PATENT CONNECTED TO LOW INTERMITTENT SUCTION WITH GREENINSH OUTPUT WITH ANDRES PICC LINE PATENT. WITH ONGOING IVF OF D5 LR @40CC/HR. WITH TPN @60CC/HR, LIPIDS @20 CC/HR. WITH MACHADO CATHETER CONNECTED TO URINE BAG DRAINING WELL. HOB ELEVATED, SAFETY MEASURES IN PLACE, BED ON LOWEST POSITION AND LOCKED. CALL LIGHT WITHIN REACH. WILL CONTINUE TO MONITOR THE PATIENT CLOSELY
[2020-12-30 20:00] VITALS: BP 120/69
[2020-12-30] MEDS: MENTHOL/CETYLPYRD (CEPACOL) 1 LOZ LOZENGE PO PRN (20:34)
[2020-12-30] MEDS ORDERED: POTASSIUM CL. PREMIX PERIPHER. 50 ML IV SCH (21:00)
[2020-12-31] VITALS (7 sets, daily range): BP systolic 102–134; BP diastolic 50–77
[2020-12-31] MEDS: PIPERACILLIN /TAZOBACTAM 3.375 G in IV D5W 50 ML IV SCH ×4 (00:36→20:35)
[2020-12-31] MEDS: HYDROMORPHONE 1 MG/1 ML DISP.SYRIN IV PRN (00:36)
[2020-12-31] MEDS: INSULIN REGULAR, HUMAN 100 UNIT/ML 3 ML VIAL SQ PRN ×4 (00:39→18:08)
[2020-12-31] MEDS: BLOOD SUGAR DIAGNOSTIC 1 EACH STRIP IN SCH ×5 (00:40→23:55)
[2020-12-31] MEDS ORDERED: TPN BAG #5 IV SCH (02:40)
--- NOTE | 2020-12-31 03:45 | NUR ---
RN NOTES PATIENT REMOVED HIS NGT. RE-INSERTED HIS NGT F #[id number]. CHECK GASTRIC RESIDUAL AND PLACEMENT DONE BY 2 RN'S. ORDERED CXRAY FOR PLACEMENT OF NGT BY ILANA JOHNSON.
[2020-12-31] MEDS: GABAPENTIN 300 MG CAPSULE PO SCH (06:43)
[2020-12-31] MEDS: IBUPROFEN 400 MG TABLET PO SCH ×3 (06:43→20:43)
--- NOTE | 2020-12-31 07:15 | NUR ---
RN OPENING NOTES RECEIVED PATIENT RESTING IN BED A/O X3-4. NO SIGN OF SOB AT THIS TIME. OXYGEN VIA MASK 10L/MIN. O2 SAT 99%. PT WITH NGT PATENT CONNECTED TO LOW INTERMITTENT SUCTION WITH GREENISH OUTPUT, RIGHT UPPER ARM PICC LINE CLEAN AND PATENT. WITH ONGOING IVF OF LR @40CC/HR. WITH TPN @60CC/HR, LIPIDS @20 CC/HR. PT HAS A PATENT MACHADO CATHETER CONNECTED TO URINE BAG DRAINING WELL. HOB ELEVATED, SAFETY MEASURES IN PLACE, BED ON LOWEST POSITION AND LOCKED. CALL LIGHT WITHIN REACH. WILL CONTINUE TO MONITOR THE PATIENT CLOSELY
[2020-12-31 07:23] LABS: BASOPHILS % (AUTO) 0.1 % (0.0-2.0); EOSINOPHILS % (AUTO) 0.5 % (0.0-6.0); HEMATOCRIT 26 % (39-51); HEMOGLOBIN 8.4 g/dL (13.5-17.5); LYMPHOCYTES # (AUTO) 0.8 K/uL (0.8-4.8); LYMPHOCYTES % (AUTO) 5.9 % (20.0-44.0); MEAN CORPUSCULAR HGB CONC 32 g/dl (31.0-36.0); MEAN CORPUSCULAR VOLUME 64 fL (80-96); MONOCYTES % (AUTO) 7.3 % (2.0-12.0); NEUTROPHILS # (AUTO) 12.2 K/uL (1.8-8.9); NEUTROPHILS % (AUTO) 86.2 % (43.0-81.0); PLATELET COUNT (AUTO) 148 K/uL (150-450); RED BLOOD CELL COUNT(AUTO) 4.13 MIL/uL (4.5-6.0); WHITE BLOOD COUNT (AUTO) 14.1 K/uL (4.3-11.0)
[2020-12-31 08:27] LABS: ALBUMIN 1.7 g/dL (3.4-5.0); BILIRUBIN,TOTAL 0.4 mg/dL (0.2-1.0); CALCIUM, SERUM 8.4 mg/dL (8.5-10.1); CREATININE 0.6 mg/dL (0.6-1.3); MAGNESIUM 2.1 mg/dL (1.8-2.4); POTASSIUM 3.4 mmol/L (3.5-5.1); TOTAL PROTEIN, SERUM 5.4 g/dL (6.4-8.2)
[2020-12-31] MEDS: IV LR 1000 ML 1,000 ML IV PRN (09:12)
[2020-12-31 09:55] LABS: BAND % (MANUAL) 3 % (0.0-5.0); LYMPHOCYTES % (MANUAL) 2 % (16-48); MONOCYTES % (MANUAL) 5 % (0-11.0); NEUTROPHILS % (MANUAL) 90 (42-76)
[2020-12-31] MEDS: ACETAMINOPHEN 325 MG TABLET PO SCH ×3 (09:55→20:43)
[2020-12-31] MEDS: BENZTROPINE MESYLATE (1 MG) 1 MG TABLET PO SCH ×2 (09:55→17:13)
[2020-12-31] MEDS: PANTOPRAZOLE 40 MG/PACK PACK PO SCH (09:55)
[2020-12-31] MEDS: OLANZAPINE 5 MG TABLET PO SCH (09:55)
[2020-12-31] MEDS: CHOLECALCIFEROL 1,000 UNIT TABLET (VIT D3) PO SCH (09:56)
[2020-12-31] MEDS: MULTIVIT W/MINERALS 1 TAB TABLET PO SCH (09:56)
[2020-12-31] MEDS: GABAPENTIN 400 MG CAPSULE PO SCH ×3 (09:56→17:12)
[2020-12-31] MEDS: risperiDONE 1 MG TABLET PO SCH ×2 (09:56→17:13)
[2020-12-31] MEDS: methylPREDNISolone SOD SUCC 40 MG/ML VIAL IV SCH (09:57)
[2020-12-31] MEDS: HYDROCODONE/APAP 5/325MG TABLET PO SCH ×3 (09:57→17:13)
[2020-12-31] MEDS ORDERED: POTASSIUM PHOSPHATE MM 15 MMOL in IV NS 0.9% 250 ML IV SCH (10:00)
[2020-12-31] MEDS ORDERED: Magnesium 1GM/D5W 100ML PREMIX 100 ML IV SCH (10:00)
[2020-12-31] MEDS ORDERED: DIATR MEGLU/DIATRIZOATE SODIUM 120 ML BOTTLE (GASTROGRAPHIN) ONE ×4 (15:26→20:12)
[2020-12-31] MEDS ORDERED: Sodium Phosphate 15 MMOL in IV NS 0.9% 245 ML IV SCH (16:00)
[2020-12-31] MEDS: ATORVASTATIN 10 MG TABLET PO SCH (17:12)
[2020-12-31] MEDS: OLANZAPINE 10 MG TABLET PO SCH (17:12)
[2020-12-31] MEDS: LITHIUM CARBONATE (300 MG CAP) 300 MG CAPSULE PO SCH (17:13)
[2020-12-31] MEDS: TERAZOSIN HCL 5 MG CAPSULE PO SCH (17:23)
[2020-12-31] MEDS ORDERED: TPN BAG #6 IV SCH (19:00)
--- NOTE | 2020-12-31 19:05 | NUR ---
RN CLOSING NOTES TELE PATIENT IS RESTING IN BED WITH NO SIGNS OF RESPIRATORY DISTRESS AT THIS TIME. PATIENT STILL ON 10L VIA SIMPLE MASK ;TOLERATING WELL SATURATING O2 SAT 96% X RAY DONE TODAY. IV ACCESS MAINTAINED INTACT, SECURED AND FLUSHING WELL. ALL DUE MEDS GIVEN ORDERED & SCHEDULED, PATIENT TOLERATED WELL. SAFETY MEASURES IMPLEMENTED, BED IN LOWEST POSITION, LOCKED, SIDE RAILS UP, CALL LIGHT WITHIN REACH. ALL NEEDS AND ORDERS ADDRESSED DURING THE SHIFT WILL ENDORSED TO INCOMING SHIFT RN FOR CONTINUE TO MONITOR
--- NOTE | 2020-12-31 19:38 | NUR ---
Nurse accidently suctioned post 1hr of small bowel follow through. Exam quality changed due to error.
--- NOTE | 2020-12-31 19:50 | NUR ---
RN NOTES, PATIENT EN BED A/O X3, ABLE TO VERBALIZE NEEDS AND CONCERNS, ON 10L VIA SIMPLE MASK, TOLERATING WELL WITH O2 SATURATING, NSR IN TELE MONITOR WITH HR 80S AT THIS TIME, NG TUBE IN PLACE, LOWER INTERMITTENT SUCTION ON HOLD, FOR BOWEL FOLLOW UP, ANDRES PICC LINE IN PLACE, TPN INFUSING ORDER WELL IVF, SAFETY MEASURES IMPLEMENTED, BED LOCKED AND LOWEST POSITION, SIDE RAILS UP, CALL LIGHT WITHIN REACH, WILL CONTINUE TO MONITOR CLOSELY.
--- NOTE | 2020-12-31 23:45 | NUR ---
RN NOTES, PATIENT ENDORSED TO TAM DENISE FOR CONTINUATION OF CARE, PATIENT A/O ON SIMPLE MASK AT 10L WITH, NO SOB/ACUTE DISTRESS NOTED, CLEAN AND DRY.
[2021-01-01] MEDS: PIPERACILLIN /TAZOBACTAM 3.375 G in IV D5W 50 ML IV SCH ×4 (00:02→17:50)
--- NOTE | 2021-01-01 00:12 | NUR ---
RN NOTE RECEIVED A CALL FROM RADIOLOGY, FROM ANIL CHAO REGARDING PATIENTS ABDOMINAL X-RAY FOLLOWING CONTRAST. PER DR. BEDOYA, RECOMMENDS NG-TUBE TO BE ADVANCED FURTHER. ALSO RECOMMENDED TO REPEAT ABDOMINAL X-RAY IN THE MORNING. WILL INFORM BOTTOM POUNDER CEMENT SHOES
[2021-01-01] MEDS: INSULIN REGULAR, HUMAN 100 UNIT/ML 3 ML VIAL SQ PRN ×4 (00:32→18:26)
--- NOTE | 2021-01-01 00:51 | NUR ---
RN NOTE PER MD ORDER, ADVANCE NG-TUBE CATHETER BY 10 CM. NG-TUBE NOW MEASURES AT 60CM, PREVIOUSLY AT [address] ON LOW SUCTION OVERNIGHT. REPEAT IMAGING IN THE MORNING. NOTED AND CARRIED OUT.
[2021-01-01 04:00] VITALS: BP 128/81
[2021-01-01] MEDS: IBUPROFEN 400 MG TABLET PO SCH ×3 (05:00→21:00)
[2021-01-01] MEDS: BLOOD SUGAR DIAGNOSTIC 1 EACH STRIP IN SCH ×3 (05:45→18:21)
[2021-01-01 06:20] LABS: BASOPHILS % (AUTO) 0.1 % (0.0-2.0); EOSINOPHILS % (AUTO) 0.1 % (0.0-6.0); HEMATOCRIT 25 % (39-51); LYMPHOCYTES # (AUTO) 0.8 K/uL (0.8-4.8); LYMPHOCYTES % (AUTO) 7.6 % (20.0-44.0); MEAN CORPUSCULAR HGB CONC 32 g/dl (31.0-36.0); MEAN CORPUSCULAR VOLUME 64 fL (80-96); MONOCYTES # (AUTO) 0.8 K/uL (0.1-1.30); MONOCYTES % (AUTO) 7.4 % (2.0-12.0); NEUTROPHILS # (AUTO) 9.2 K/uL (1.8-8.9); NEUTROPHILS % (AUTO) 84.8 % (43.0-81.0); PLATELET COUNT (AUTO) 131 K/uL (150-450); RED BLOOD CELL COUNT(AUTO) 3.92 MIL/uL (4.5-6.0); WHITE BLOOD COUNT (AUTO) 10.8 K/uL (4.3-11.0)
[2021-01-01] MEDS: IV LR 1000 ML 1,000 ML IV PRN (06:41)
[2021-01-01 07:26] LABS: CALCIUM, SERUM 7.7 mg/dL (8.5-10.1); CREATININE 0.5 mg/dL (0.6-1.3); MAGNESIUM 1.6 mg/dL (1.8-2.4); PHOSPHORUS 2.2 mg/dL (2.5-4.9)
--- NOTE | 2021-01-01 07:53 | NUR ---
MS RN NOTES RECEIVED PATIENT IN THE BED ALERT AND ORIENTED, NON COMPLIANCE, TRYING TO REMOVED SIMPLE MASK, EDUCATED PT ON IMPORTANCE OF KEEPING THE MASK ON. PT IS ON OXYGEN VIA SIMPLE MASK 10L/MIN SATURATION 100% AT THIS TIME. MACHADO IN PLACE WITH YELLOW COLOR URINE. PT HAS NG TUBE TO LOWER INTERMITTENT SUCTION WITH GREENISH COLOR NOTICED, LARGE AMOUNT. PT ON IV FLUIDS AND TPN VIA ANDRES PICC LINE. SAFETY MEASUREMENTS IMPLEMENTED CALL LIGHT WITHIN REACH, BED LOCKED AND IN LOWEST POSITION WILL CONTINUE TO MONITOR.
[2021-01-01 07:55] LABS: POTASSIUM 2.7 mmol/L (3.5-5.1)
[2021-01-01 08:00] VITALS: BP 144/90
[2021-01-01] MEDS: MULTIVIT W/MINERALS 1 TAB TABLET PO SCH (08:57)
[2021-01-01] MEDS: CHOLECALCIFEROL 1,000 UNIT TABLET (VIT D3) PO SCH (08:57)
[2021-01-01] MEDS: BENZTROPINE MESYLATE (1 MG) 1 MG TABLET PO SCH ×2 (08:57→16:55)
[2021-01-01] MEDS: HYDROCODONE/APAP 5/325MG TABLET PO SCH ×3 (08:58→16:57)
[2021-01-01] MEDS: OLANZAPINE 5 MG TABLET PO SCH (08:58)
[2021-01-01] MEDS: ACETAMINOPHEN 325 MG TABLET PO SCH ×3 (08:58→21:00)
[2021-01-01] MEDS: risperiDONE 1 MG TABLET PO SCH ×2 (08:58→16:55)
[2021-01-01] MEDS: PANTOPRAZOLE 40 MG/PACK PACK PO SCH (08:58)
[2021-01-01] MEDS: GABAPENTIN 400 MG CAPSULE PO SCH ×3 (08:58→16:55)
[2021-01-01] MEDS: methylPREDNISolone SOD SUCC 40 MG/ML VIAL IV SCH (08:59)
[2021-01-01] MEDS: Magnesium 1GM/D5W 100ML PREMIX 100 ML IV SCH ×2 (09:00→10:18)
[2021-01-01] MEDS: POTASSIUM CL. PREMIX PERIPHER. 50 ML IV SCH ×6 (09:00→14:43)
[2021-01-01] MEDS ORDERED: POTASSIUM PHOSPHATE MM 15 MMOL in IV NS 0.9% 250 ML IV SCH ×2 (10:00→14:00)
--- NOTE | 2021-01-01 10:30 | NUR ---
ms rn note per dr fabiola conner to place 5l nc of ,saturation saturation 98%, will monitor
[2021-01-01] MEDS ORDERED: TPN BAG #7 IV SCH (11:30)
[2021-01-01 12:06] VITALS: BP 128/73
--- NOTE | 2021-01-01 13:38 | NUR ---
MS RN NOTES PT PULLED OUT PICC LINE AND LEFT AC IV, PHARMACY IS AWARE OF ENABLE TO ADMINISTERED TPN. PRECISION HONING MACHINE OPERATOR ALSO AWARE, WAITING FOR PICC LINE TO BE REPLACE TO RESTART TPN, WILL CALL PHARMACY WHEN NEW PICC LINE IS IN PLACE, NEW RIGHT AC IV INSERTED AND NEW RIGHT HAND IV ALSO INSERTED BOTH PATENT AND FLUSHING WELL, WILL CONTINUE IV FLUIDS.
[2021-01-01 13:44] LABS: LYMPHOCYTES % (MANUAL) 6 % (16-48); MONOCYTES % (MANUAL) 4 % (0-11.0); NEUTROPHILS % (MANUAL) 90 (42-76)
--- NOTE | 2021-01-01 14:13 | NUR ---
television news photographer note per dr ojeda and Mesha rn supervisor billposting ok tO do kub in AM
--- NOTE | 2021-01-01 15:16 | NUR ---
SPEED BELT SANDER NOTES PT PULLING IV LINES ALL THE TIME AND NG TUBE DESPITE EXPLANATION, FAMILY MEMBER PEREZ NOTIFIED, DOCTOR ALSO NOTIFIED, ORDER PLACE FOR MITTENS. WILL MONITOR
[2021-01-01 16:00] VITALS: BP 116/63
--- NOTE | 2021-01-01 16:52 | NUR ---
telephone directory deliverer note still unable to administer lipid and tpn at this time ,still awaiting for picc line nurse ,spoke with zita johnson supervisor concrete pipe plant stated that will come soon ,will f\u
--- NOTE | 2021-01-01 17:45 | NUR ---
teletype adjuster note chest x ray ordered stat due to rt upper arm picc line inserted b y Carlos rn nonprofit manager
[2021-01-01] MEDS: LITHIUM CARBONATE (300 MG CAP) 300 MG CAPSULE PO SCH (17:52)
[2021-01-01] MEDS: OLANZAPINE 10 MG TABLET PO SCH (17:52)
[2021-01-01] MEDS: TERAZOSIN HCL 5 MG CAPSULE PO SCH (17:52)
[2021-01-01] MEDS: ATORVASTATIN 10 MG TABLET PO SCH (17:53)
--- NOTE | 2021-01-01 18:25 | NUR ---
RADIATOR FITTER NOTE CHEST X RAY RESULT NOT DONE YET CALLED RADIOLOGY STATED THAT WILL CALL RADIOLOGIST NOW , WILL F\U
--- NOTE | 2021-01-01 18:30 | NUR ---
RN CLOSING NOTES TELE PATIENT IS RESTING IN BED WITH NO SIGNS OF RESPIRATORY DISTRESS AT THIS TIME. PT IS ON 5L/MIN VIA NASAL CANULA TOLERATING WELL, SATURATING O2 AT 99%, PICC LINE X RAY DONE TODAY, WE CALLED RADIOLOGY TO CONFIRM PICC LINE REPLACEMENT BUT STILL WAITING FOR RESULTS. TPN AND LIPIDS STILL ON HOLD, PERIPHERAL IV ACCESS ALSO REPLACE AFTER PATIENT PULLED THEM UP. RIGHT HAND AND RIGHT AC IN PLACE, PATENT, INTACT AND BOTH FLUSHING WELL . PATIENT IS PACE ON MITTENS RESTRAIN AT THE MOMENT. ALL DUE MEDS GIVEN ORDERED & SCHEDULED, PATIENT TOLERATED WELL. SAFETY MEASURES IMPLEMENTED, BED IN LOWEST POSITION, LOCKED, SIDE RAILS UP, CALL LIGHT WITHIN REACH. ALL NEEDS AND ORDERS ADDRESSED DURING THE SHIFT. WILL ENDORSED TO INCOMING SHIFT RN FOR CONTINUE TO MONITOR
--- NOTE | 2021-01-01 19:00 | NUR ---
telesales advisor note reported chest x calvin picc line pavement to Carlos johnson wage conciliator stated that will adjust picc line placement
--- NOTE | 2021-01-01 19:06 | NUR ---
radiotelegraph operator note Carlos nam tuber helper at beside adjusted position of picc liine abating for chest xray foe result ,will f\u
--- NOTE | 2021-01-01 19:58 | NUR ---
TELE - RN NOTE: RECEIVED PATIENT IN BED, SLEEPING, EASILY AROUSABLE. A/O X2. NO DISTRESS, NO DISCOMFORT NOTED. NO S/S OF PAIN. ON TELE - SINUS RHYTHM. HR 82. PATIENT ON NC 6L O2 SATURATION 100. APPLIED HUMIDIFIER WHICH WAS MISSING. IVF LR - INFUSING AT 40 ML/HR RT FOREARM #20 GAUGE. NO S/S OF INFILTRATION NOTED. ANDRES PICC. INTACT AND PATENT. X-RAY RESULTS CHECKED, ANDRES PICC LINE IS INPLACE IN THE RT [facility]. WILL START TPN AND LIPIDS ORDERED. MACHADO CATH. INTACT AND PATENT. DRAINING OUTPUT YELLOWISH COLOR, CLEAR. NG TUBE IN RT NARE, ON LIS. SUCTIONING NOTED WITH GREENISH COLOR DRAINAGE. PATIENT NOTED WITH BILATERAL HAND MITTENS. REPOSITION FOR COMFORT AND SKIN MANAGEMENT. KEPT PATIENT DRY AND CLEAN. CONTINUING TO MONITOR. SIDE RAILS UP X3. CALL LIGHT WITHIN REACH. BED AT LOWEST POSITION. VSS.
[2021-01-01 20:00] VITALS: BP 124/70
[2021-01-01] MEDS: FAT EMULSION 20% 500 ML in PREMIX 1 EA IV SCH (20:14)
--- NOTE | 2021-01-01 20:15 | NUR ---
UPHOLSTERY TECH NOTES: LIPIDS AND TPN GIVEN ORDERED. NO DISTRESS, NO DISCOMFORT NOTED. PATIENT IS ASLEEP
--- NOTE | 2021-01-01 20:35 | NUR ---
PSYCHOLOGY TEACHER NOTES: TITRATED O2 TO 5L VIA NC WITH HUMIDIFIER. O2 SATURATION 99%. CONTINUING TO MONITOR.
--- NOTE | 2021-01-01 21:52 | NUR ---
MERCHANDISE COMPLAINT ADJUSTER NOTES: HELD MOTRIN AND TYLENOL PER DR. SANTAMARIA NOTES.
--- NOTE | 2021-01-01 22:03 | NUR ---
DRIVEWAY ATTENDANT NOTES: TITRATED DOWN TO 4L - 02 SATURATION AT 100%
[2021-01-02] MEDS: PIPERACILLIN /TAZOBACTAM 3.375 G in IV D5W 50 ML IV SCH ×4 (00:23→17:51)
[2021-01-02] MEDS: HYDROMORPHONE 1 MG/1 ML DISP.SYRIN IV PRN ×4 (00:24→21:16)
[2021-01-02] MEDS: BLOOD SUGAR DIAGNOSTIC 1 EACH STRIP IN SCH ×4 (00:24→18:29)
--- NOTE | 2021-01-02 00:40 | NUR ---
CONSTRUCTION SPECIALIST NOTES: DILAUDID 2MG GIVEN DUE TO PATIENT COMPLAINT OF 8/10 PAIN ON ABDOMEN.
[2021-01-02 04:00] VITALS: BP 142/82
[2021-01-02] MEDS ORDERED: TPN BAG #8 IV SCH (04:09)
--- NOTE | 2021-01-02 04:12 | NUR ---
TUTORING CLINICIAN NOTES: TITRATED DOWN TO 3L, O2 SATURATION 97%. WILL CONTINUE TO MONITOR. NO DISTRESS NOTED.
[2021-01-02] MEDS: IBUPROFEN 400 MG TABLET PO SCH ×3 (05:00→21:00)
[2021-01-02] MEDS: INSULIN REGULAR, HUMAN 100 UNIT/ML 3 ML VIAL SQ PRN ×3 (05:39→18:35)
--- NOTE | 2021-01-02 06:36 | NUR ---
RN CLOSING NOTES: PATIENT SLEEPING AT EASE, BED ALARM ON, MITTENS IN PLACE THROUGHOUT SHIFT, SHOWS NO SIGNS OF DISTRESS, NO DISCOMFORT, NO SOB, IVF RUNNING, PATIENT COMPLAINS OF ABDOMINAL PAIN, TITRATED OXYGEN DOWN TO 3L, MAINTAINS O2 SATURATION > 96%. WILL CONTINUE TO MONITOR.
[2021-01-02 06:48] LABS: BASOPHILS % (AUTO) 0.1 % (0.0-2.0); EOSINOPHILS % (AUTO) 0.4 % (0.0-6.0); HEMATOCRIT 26 % (39-51); HEMOGLOBIN 8.1 g/dL (13.5-17.5); LYMPHOCYTES # (AUTO) 0.8 K/uL (0.8-4.8); LYMPHOCYTES % (AUTO) 6.8 % (20.0-44.0); MEAN CORPUSCULAR HGB CONC 32 g/dl (31.0-36.0); MEAN CORPUSCULAR VOLUME 63 fL (80-96); MONOCYTES # (AUTO) 0.7 K/uL (0.1-1.30); MONOCYTES % (AUTO) 6.5 % (2.0-12.0); NEUTROPHILS # (AUTO) 9.6 K/uL (1.8-8.9); NEUTROPHILS % (AUTO) 86.2 % (43.0-81.0); PLATELET COUNT (AUTO) 163 K/uL (150-450); RED BLOOD CELL COUNT(AUTO) 4.03 MIL/uL (4.5-6.0); WHITE BLOOD COUNT (AUTO) 11.1 K/uL (4.3-11.0)
[2021-01-02 07:26] LABS: CALCIUM, SERUM 8.5 mg/dL (8.5-10.1); CREATININE 0.6 mg/dL (0.6-1.3); PHOSPHORUS 2.8 mg/dL (2.5-4.9); POTASSIUM 3.2 mmol/L (3.5-5.1)
[2021-01-02] MEDS: PANTOPRAZOLE 40 MG/PACK PACK PO SCH (09:07)
[2021-01-02] MEDS: POTASSIUM CL. PREMIX PERIPHER. 50 ML IV SCH ×4 (09:07→12:57)
[2021-01-02] MEDS: BENZTROPINE MESYLATE (1 MG) 1 MG TABLET PO SCH ×2 (09:07→17:49)
[2021-01-02] MEDS: MULTIVIT W/MINERALS 1 TAB TABLET PO SCH (09:08)
[2021-01-02] MEDS: GABAPENTIN 400 MG CAPSULE PO SCH ×3 (09:08→17:47)
[2021-01-02] MEDS: CHOLECALCIFEROL 1,000 UNIT TABLET (VIT D3) PO SCH (09:09)
[2021-01-02] MEDS: HYDROCODONE/APAP 5/325MG TABLET PO SCH ×3 (09:09→17:49)
[2021-01-02] MEDS: OLANZAPINE 5 MG TABLET PO SCH (09:09)
[2021-01-02] MEDS: risperiDONE 1 MG TABLET PO SCH ×2 (09:09→17:50)
[2021-01-02] MEDS: ACETAMINOPHEN 325 MG TABLET PO SCH ×3 (09:15→21:00)
[2021-01-02] MEDS: methylPREDNISolone SOD SUCC 40 MG/ML VIAL IV SCH (09:16)
[2021-01-02] MEDS: IV LR 1000 ML 1,000 ML IV PRN (09:36)
[2021-01-02 10:18] LABS: EOSINOPHILS % (MANUAL) 1 % (0-4); LYMPHOCYTES % (MANUAL) 10 % (16-48); MONOCYTES % (MANUAL) 6 % (0-11.0); NEUTROPHILS % (MANUAL) 83 (42-76)
[2021-01-02 12:00] VITALS: BP 134/82
--- NOTE | 2021-01-02 12:41 | NUR ---
RN NOTE PER JOHANNA Art. FLUSH NGT WITH 250 CC WATER AND CLAMP INTERMITTENT SUCTION FOR 4 HRS, THEN MEASURE OUTPUT ON NGT SUCTION.
--- NOTE | 2021-01-02 14:47 | NUR ---
RN NOTE TPN AMINO ACID 4.25% D10 1000ML TO RUN FOR 50CC/HR PER PHARMACY DUE TO ELEVATED BLOOD GLUCOSE LEVEL.
--- NOTE | 2021-01-02 17:11 | NUR ---
RN NOTE TURNED ON INTERMITTENT SUCTION ORDERED. 50 ML SUCTIONED. NOTIFIED JOHANNA MANN. DIETARY CONSULT FOR TUBE FEEDING. KEEP NGT TO LOW INTERMITTENT SUCTION.
[2021-01-02] MEDS: TERAZOSIN HCL 5 MG CAPSULE PO SCH (17:49)
[2021-01-02] MEDS: OLANZAPINE 10 MG TABLET PO SCH (17:49)
[2021-01-02] MEDS: ATORVASTATIN 10 MG TABLET PO SCH (17:49)
[2021-01-02] MEDS: LITHIUM CARBONATE (300 MG CAP) 300 MG CAPSULE PO SCH (17:50)
--- NOTE | 2021-01-02 19:03 | NUR ---
RN NOTE PATIENT OBSERVED IN BED AWAKE, ON O2 VIA NC @ 5LPM O2 SAT OF 98% ON TELE MONITOR SR HR OF 99, NPO EXCEPT MEDICATION, WITH RIGHT UPPER PICC LINE NOTED, WITH TPN RUNNING @ 40CCHR PATENT INFUSING WELL, AFEBRILE AT THIS TIME, PATIENT WITH MACHADO CATHETER DRAINING WELL NO HEMATURIA NOTED, ACCU CHECK PER SLIDING SCALE, WITH LR INFUSING WELL, WILL CONTINUE TO MONITOR FOR CHANGE OF CONDITION, SAFETY MEASURE OBSERVED, CALL LIGHT WITHIN REACH, BED WHEELS LOCK. WILL ENDORSE TO NOC SHIFT.
[2021-01-02 20:00] VITALS: BP 107/72
[2021-01-02] MEDS ORDERED: TPN BAG #9 IV SCH (20:49)
[2021-01-03] MEDS: PIPERACILLIN /TAZOBACTAM 3.375 G in IV D5W 50 ML IV SCH ×5 (00:05→23:56)
[2021-01-03] MEDS: BLOOD SUGAR DIAGNOSTIC 1 EACH STRIP IN SCH ×5 (00:22→23:59)
[2021-01-03] MEDS: INSULIN REGULAR, HUMAN 100 UNIT/ML 3 ML VIAL SQ PRN ×5 (00:23→23:59)
--- NOTE | 2021-01-03 01:04 | NUR ---
COMPUTER OPERATIONS SUPERVISOR NOTES: PATIENT V/S STABLE, TELE MONITOR SHOWS SR, NO COMPLAINTS OF SOB, NO DISTRESS NOTED, PATIENT A/O X 4, NC ON 3L, SIDE RAILS UP X3, BED AT LOWEST POSITION, CALL LIGHT WITHIN REACH, WILL CONTINUE TO MONITOR.
[2021-01-03 04:00] VITALS: BP 122/76
[2021-01-03] MEDS: HYDROMORPHONE 1 MG/1 ML DISP.SYRIN IV PRN ×2 (04:09→15:21)
--- NOTE | 2021-01-03 04:15 | NUR ---
RN NOTES: GAVE DILAUDID FOR 9/ ABDOMINAL PAIN, FLUSHED CATHETER BEFOREHAND, PATENT IV SITE, NO INFILTRATION
[2021-01-03] MEDS: IBUPROFEN 400 MG TABLET PO SCH ×3 (05:00→21:15)
--- NOTE | 2021-01-03 05:28 | NUR ---
BRANCH ASSOCIATE TELLER NOTES: HOLDING MOTRIN DUE TO NG TUBE SUCTION
[2021-01-03 06:19] LABS: BASOPHILS % (AUTO) 0.1 % (0.0-2.0); EOSINOPHILS % (AUTO) 0.6 % (0.0-6.0); HEMATOCRIT 25 % (39-51); LYMPHOCYTES % (AUTO) 8.2 % (20.0-44.0); MEAN CORPUSCULAR HGB CONC 32 g/dl (31.0-36.0); MEAN CORPUSCULAR VOLUME 64 fL (80-96); MONOCYTES # (AUTO) 0.9 K/uL (0.1-1.30); MONOCYTES % (AUTO) 7.8 % (2.0-12.0); NEUTROPHILS # (AUTO) 9.7 K/uL (1.8-8.9); NEUTROPHILS % (AUTO) 83.3 % (43.0-81.0); PLATELET COUNT (AUTO) 190 K/uL (150-450); RED BLOOD CELL COUNT(AUTO) 3.96 MIL/uL (4.5-6.0); WHITE BLOOD COUNT (AUTO) 11.7 K/uL (4.3-11.0)
[2021-01-03 07:01] LABS: CALCIUM, SERUM 8.6 mg/dL (8.5-10.1); CREATININE 0.6 mg/dL (0.6-1.3); MAGNESIUM 1.8 mg/dL (1.8-2.4); PHOSPHORUS 2.2 mg/dL (2.5-4.9); POTASSIUM 3.7 mmol/L (3.5-5.1)
--- NOTE | 2021-01-03 07:03 | NUR ---
RN CLOSING NOTES: PATIENT STABLE, BED AT LOWEST POSITION, CALL LIGHT WITHIN REACH.
--- NOTE | 2021-01-03 07:33 | NUR ---
RN NOTES PATIENT IS CURRENTLY IN BED AWAKE. PATIENT IS A&O X4. PATIENT IS ON O2 VIA NC @ 3LPM. PATIENT IS NPO EXCEPT MEDICATION, WITH RIGHT UPPER PICC LINE AND R FOREARM IV ACCESS. NO SIGNS OF INFILTRATION NOTED ON ALL IV ACCESS. PATIENT HAS TPN RUNNING @ 40CCHR PATENT INFUSING WELL. AFEBRILE AT THIS TIME, PATIENT WITH MACHADO CATHETER DRAINING WELL NO HEMATURIA NOTED, ACCU CHECK PER SLIDING SCALE, WITH LR INFUSING WELL, SAFETY MEASURE OBSERVED, CALL LIGHT WITHIN REACH, BED WHEELS LOCKED AND AT THE LOWEST POSITION. WILL CONTINUE TO MONITOR FOR CHANGE OF CONDITION THROUGHOUT SHIFT
[2021-01-03] MEDS: risperiDONE 1 MG TABLET PO SCH ×2 (08:39→17:12)
[2021-01-03] MEDS: BENZTROPINE MESYLATE (1 MG) 1 MG TABLET PO SCH ×2 (08:39→17:12)
[2021-01-03] MEDS: MULTIVIT W/MINERALS 1 TAB TABLET PO SCH (08:39)
[2021-01-03] MEDS: HYDROCODONE/APAP 5/325MG TABLET PO SCH ×3 (08:39→13:07)
[2021-01-03] MEDS: OLANZAPINE 5 MG TABLET PO SCH (08:39)
[2021-01-03] MEDS: PANTOPRAZOLE 40 MG/PACK PACK PO SCH (08:39)
[2021-01-03] MEDS: ACETAMINOPHEN 325 MG TABLET PO SCH ×3 (08:39→21:15)
[2021-01-03] MEDS: CHOLECALCIFEROL 1,000 UNIT TABLET (VIT D3) PO SCH (08:39)
[2021-01-03] MEDS: GABAPENTIN 400 MG CAPSULE PO SCH ×3 (08:39→17:12)
[2021-01-03] MEDS: methylPREDNISolone SOD SUCC 40 MG/ML VIAL IV SCH (08:48)
[2021-01-03] MEDS ORDERED: GLUCERNA 1.2 1,000 ML BOTTLE NG SCH ×2 (11:00→15:00)
[2021-01-03 12:00] VITALS: BP 128/79
[2021-01-03] MEDS ORDERED: POTASSIUM PHOSPHATE MM 15 MMOL in IV NS 0.9% 250 ML IV SCH (12:00)
[2021-01-03] MEDS: FAT EMULSION 20% 500 ML in PREMIX 1 EA IV SCH (16:19)
[2021-01-03] MEDS ORDERED: TPN BAG #10 IV SCH (16:50)
[2021-01-03] MEDS: LITHIUM CARBONATE (300 MG CAP) 300 MG CAPSULE PO SCH (17:12)
[2021-01-03] MEDS: TERAZOSIN HCL 5 MG CAPSULE PO SCH (17:13)
[2021-01-03] MEDS: ATORVASTATIN 10 MG TABLET PO SCH (17:14)
[2021-01-03] MEDS: OLANZAPINE 10 MG TABLET PO SCH (17:16)
[2021-01-03] MEDS ORDERED: Magnesium 1GM/D5W 100ML PREMIX 100 ML IV SCH (18:00)
--- NOTE | 2021-01-03 18:40 | NUR ---
RN CLOSING NOTES; PT IN SUPINE POS. A/OX4 NO SOB, DISTRESS N0TED. ALL MEDICATION GIVEN AND TOLERATED WELL. ANDRES PICC PATENT, WITH NO SIGNS OF INFILTRATION. PT UPGRADED TO NGT GLUCERNA 1.2 1000ML Q4H 10ML/HR. CHECK FOR RESIDUAL. CONTINUE ON TPN AT 50ML/HR. NO SIGNIFICANT CHANGES TO PT HEALTH STATUS DURING SHIFT. PT ENJOYED VISIT WITH FAMILY MEMBERS. ALL SAFETY MEASURES RENDERED, BED IN LOWEST POS. LOCKED, WITH CALL LIGHT WITHIN REACH. ENDORSED TO DRY HOUSE WHEELER IN STABLE CONDITION.
[2021-01-03 20:00] VITALS: BP 130/79
[2021-01-03] MEDS ORDERED: Sodium Phosphate 15 MMOL in IV NS 0.9% 245 ML IV SCH (20:00)
--- NOTE | 2021-01-03 20:00 | NUR ---
TRUST ADMINISTRATOR NOTE PATIENT IN BED AWAKE, ON O2 VIA NC @ 3LPM O2 SAT OF 99% ON TELE MONITOR SR HR OF 99, ON NGT RIGHT NOSETRILS FEEDING GLUCERNA 1.2 AT 10CC /HR X 4 HRS NO RESIDUAL NOTED WITH RIGHT UPPER PICC LINE NOTED, WITH TPN RUNNING @ 50CCHR PATENT INFUSING WELL, IVF OF LIPIDS AT 20CC/HR . LR AT 4OCC/HR INFUSING WELL V/S STABLE AFEBRILE AT THIS TIME, PATIENT WITH MACHADO CATHETER DRAINING WITH YELLOWISH URINE OUTPUT . WILL CONTINUE TO MONITOR FOR CHANGE OF CONDITION, SAFETY MEASURE OBSERVED, CALL LIGHT WITHIN REACH, WITH BILATERAL MITTENS TO PREVENT PULLING INVASIVE TUBING
[2021-01-04] VITALS: BP 125/79
--- NOTE | 2021-01-04 00:01 | NUR ---
telephone betting clerk notes Blood sugar at 12mn is 158 mg/dl 2 units of regular insulin given per sliding scale will check bs again in am.
[2021-01-04] MEDS: IV LR 1000 ML 1,000 ML IV PRN (02:01)
[2021-01-04 04:00] VITALS: BP 117/67
--- NOTE | 2021-01-04 04:30 | NUR ---
telegraph messenger notes Pts able to remove the mittens and pulled out the ngt , made aware , ngt reinserted and kub order stat for ngt placement ,awaiting for result . due meds for 5am motrin ang ngt feeding was not given d/t awaiting result for placement .mittens order discontinue change to bilateral soft wrist restraint
[2021-01-04] MEDS: PIPERACILLIN /TAZOBACTAM 3.375 G in IV D5W 50 ML IV SCH ×3 (05:08→17:14)
[2021-01-04] MEDS: INSULIN REGULAR, HUMAN 100 UNIT/ML 3 ML VIAL SQ PRN ×3 (05:59→18:16)
[2021-01-04] MEDS: BLOOD SUGAR DIAGNOSTIC 1 EACH STRIP IN SCH ×3 (06:04→12:34)
--- NOTE | 2021-01-04 06:06 | NUR ---
television installer notes Blood sugar at 6am is 154 mg/di 2 units of regular insulin given per sliding scale
[2021-01-04 06:45] LABS: BASOPHILS % (AUTO) 0.2 % (0.0-2.0); EOSINOPHILS % (AUTO) 0.6 % (0.0-6.0); HEMATOCRIT 26 % (39-51); HEMOGLOBIN 8.4 g/dL (13.5-17.5); LYMPHOCYTES # (AUTO) 0.6 K/uL (0.8-4.8); LYMPHOCYTES % (AUTO) 4.6 % (20.0-44.0); MEAN CORPUSCULAR HGB CONC 32 g/dl (31.0-36.0); MEAN CORPUSCULAR VOLUME 63 fL (80-96); MONOCYTES # (AUTO) 0.8 K/uL (0.1-1.30); MONOCYTES % (AUTO) 5.7 % (2.0-12.0); NEUTROPHILS # (AUTO) 12.2 K/uL (1.8-8.9); NEUTROPHILS % (AUTO) 88.9 % (43.0-81.0); PLATELET COUNT (AUTO) 208 K/uL (150-450); RED BLOOD CELL COUNT(AUTO) 4.16 MIL/uL (4.5-6.0); WHITE BLOOD COUNT (AUTO) 13.7 K/uL (4.3-11.0)
--- NOTE | 2021-01-04 06:46 | NUR ---
television inspector notes Pts remains in bed with bilateral soft wrist restraint . still awaiting for kub result remains on tpn at 50cc/hr lipids at 20.8 cc/hr lr at 40cc/hr infusing well , will endorse to rn day shift for continuity of care.
[2021-01-04 06:55] LABS: CALCIUM, SERUM 8.5 mg/dL (8.5-10.1); CREATININE 0.6 mg/dL (0.6-1.3); MAGNESIUM 1.8 mg/dL (1.8-2.4); PHOSPHORUS 3.5 mg/dL (2.5-4.9); POTASSIUM 3.3 mmol/L (3.5-5.1)
--- NOTE | 2021-01-04 07:30 | NUR ---
RN OPENING NOTE RECEIVED PATIENT IN BED AWAKE, A&O X 4 ON O2 VIA NC @ 3LPM O2 SAT OF 98%, NOTED WITH NGT RIGHT NARE NO RESIDUAL NOTED, AWATING FOR ABDOMINAL/KUB X RAY RESULT POST NGT PLACEMENT. WITH RIGHT UPPER PICC LINE, WITH TPN RUNNING @ 50CCHR PATENT INFUSING WELL, IVF OF LIPIDS AT 20CC/HR . LR AT 4OCC/HR INFUSING WELL ON PATIENT'S RFA G#22, V/S STABLE, PATIENT IS AFEBRILE AT THIS TIME, WITH COMPLAINTS OF ABDOMINAL PAIN, PAIN SCALE 9/10, DUE PRN PAIN MEDICATION GIVEN ORDERED. PATIENT WITH MACHADO CATHETER DRAINING WITH YELLOWISH URINE OUTPUT . WILL CONTINUE TO MONITOR FOR CHANGE OF CONDITION, SAFETY MEASURES IN PLACE: CALL LIGHT WITHIN REACH, WITH BILATERAL RESTRAINS ON BOTH UPPER ARMS TO PREVENT PULLING INVASIVE TUBING, SIDE RAILS UP X 2, BED ON LOWEST LOCKED POSITION. WILL CONTINUE TO MONITOR ACCORDINGLY.
[2021-01-04] MEDS: HYDROMORPHONE 1 MG/1 ML DISP.SYRIN IV PRN (07:58)
[2021-01-04 08:00] VITALS: BP 112/73
--- NOTE | 2021-01-04 09:17 | NUR ---
RN NOTES ABDOMINAL X RAY PST NGT INSERTION RESULT IN, RESUME FEEDING OF GLUCERNA 1.2 AT 10 CC X 4HOURS, THERE WAS NO RESIDUAL NOTED, PLACEMENT VERIFIED BY AUSCULTATION. KEPT HOB ELEVATED.
[2021-01-04] MEDS: GABAPENTIN 400 MG CAPSULE PO SCH ×3 (09:40→16:17)
[2021-01-04] MEDS: PANTOPRAZOLE 40 MG/PACK PACK PO SCH (09:40)
[2021-01-04] MEDS: CHOLECALCIFEROL 1,000 UNIT TABLET (VIT D3) PO SCH (09:40)
[2021-01-04] MEDS: risperiDONE 1 MG TABLET PO SCH ×2 (09:40→16:16)
[2021-01-04] MEDS: BENZTROPINE MESYLATE (1 MG) 1 MG TABLET PO SCH ×2 (09:40→16:16)
[2021-01-04] MEDS: OLANZAPINE 5 MG TABLET PO SCH (09:40)
[2021-01-04] MEDS: MULTIVIT W/MINERALS 1 TAB TABLET PO SCH (09:41)
[2021-01-04] MEDS: ACETAMINOPHEN 325 MG TABLET PO SCH ×3 (09:41→21:04)
[2021-01-04] MEDS: methylPREDNISolone SOD SUCC 40 MG/ML VIAL IV SCH (09:41)
[2021-01-04] MEDS: POTASSIUM CL. PREMIX PERIPHER. 50 ML IV SCH ×4 (09:54→21:36)
[2021-01-04 10:38] LABS: BAND % (MANUAL) 3 % (0.0-5.0); EOSINOPHILS % (MANUAL) 1 % (0-4); LYMPHOCYTES % (MANUAL) 4 % (16-48); MONOCYTES % (MANUAL) 4 % (0-11.0); NEUTROPHILS % (MANUAL) 88 (42-76)
[2021-01-04 12:13] VITALS: BP 118/72
[2021-01-04] MEDS ORDERED: TPN BAG #11 IV SCH (12:50)
[2021-01-04] MEDS: IBUPROFEN 400 MG TABLET PO SCH ×2 (13:49→21:04)
--- NOTE | 2021-01-04 14:15 | NUR ---
RN NOTES CALLED PHARMACY TO VERIFY DISCONTINUATION OF TPN BAG #10 ON IV SPREADSHEET, SPOKE TO VAJE: PER VAJE START TPN BAG #11 AND DISCONTINUE PREVIOUS TPN.
[2021-01-04] MEDS: HYDROCODONE/APAP 5/325MG TABLET PO SCH (16:16)
[2021-01-04 16:21] VITALS: BP 111/71
[2021-01-04] MEDS: LITHIUM CARBONATE (300 MG CAP) 300 MG CAPSULE PO SCH (17:15)
[2021-01-04] MEDS: OLANZAPINE 10 MG TABLET PO SCH (17:16)
[2021-01-04] MEDS: TERAZOSIN HCL 5 MG CAPSULE PO SCH (17:16)
[2021-01-04] MEDS: ATORVASTATIN 10 MG TABLET PO SCH (17:18)
[2021-01-04] MEDS ORDERED: Magnesium 1GM/D5W 100ML PREMIX 100 ML IV SCH (18:00)
--- NOTE | 2021-01-04 18:54 | NUR ---
RN CLOSING NOTES PATIENT IN BED AWAKE, A&O X 4 ON O2 VIA NC @ 3LPM O2 SAT OF 98%, NOTED WITH NGT RIGHT NARE NO RESIDUAL NOTED, ONGOING FEEDING OF GLUCERNA 1.2 AT 10 CC/HR, TOLERATING WELL. WITH RIGHT UPPER PICC LINE, WITH TPN RUNNING @ 50CCHR PATENT INFUSING WELL, LR AT 4OCC/HR INFUSING WELL ON PATIENT'S RFA G#22, V/S STABLE, PATIENT IS AFEBRILE AT THIS TIME, NO COMPLAINTS OF PAIN AT THIS TIME. PATIENT WITH MACHADO CATHETER DRAINING WITH YELLOWISH URINE OUTPUT . WILL CONTINUE TO MONITOR FOR CHANGE OF CONDITION, SAFETY MEASURES IN PLACE: CALL LIGHT WITHIN REACH, WITH BILATERAL RESTRAINS ON BOTH UPPER ARMS TO PREVENT PULLING INVASIVE TUBING, SIDE RAILS UP X 2, BED ON LOWEST LOCKED POSITION. DUE MEDS GIVEN ORDERED, ALL NEEDS ATTENDED AND MET. WILL ENDORSE TO ONCOMING SHIFT FOR NATHANIEL.
[2021-01-04 20:00] VITALS: BP 113/71
--- NOTE | 2021-01-04 22:35 | NUR ---
REGISTERED RADIOLOGIC TECHNOLOGIST NOTE PATIENT IN BED AWAKE, ON O2 VIA NC @ 3LPM O2 SAT OF 99% ON TELE MONITOR SR HR OF 78, ON NGT RIGHT NOSETRILS FEEDING GLUCERNA 1.2 AT 10CC /HR NO RESIDUAL NOTED WITH RIGHT UPPER PICC LINE NOTED, WITH TPN bag #11 RUNNING @ 50CCHR PATENT INFUSING WELL, LR AT 4OCC/HR INFUSING WELL V/S STABLE AFEBRILE AT THIS TIME, PATIENT WITH MACHADO CATHETER DRAINING WITH YELLOWISH URINE OUTPUT . WILL CONTINUE TO MONITOR FOR CHANGE OF CONDITION, SAFETY MEASURE OBSERVED, CALL LIGHT WITHIN REACH, WITH BILATERAL MITTENS TO PREVENT PULLING INVASIVE TUBING POTASSIUM LEVEL of 3.3 REPLACED WITH 20 MEQ IV PREMIX ORDERED DUE MEDS GIVEN ORDERED.
--- NOTE | 2021-01-04 22:40 | NUR ---
OPERATIONS MANAGER NOTES BILATERAL SOFT WRIST RESTRAINT ON TO PREVENT FROM PULLING INVASIVE TUBING .
[2021-01-05 01:00] VITALS: BP 136/76
[2021-01-05] MEDS: INSULIN REGULAR, HUMAN 100 UNIT/ML 3 ML VIAL SQ PRN ×5 (01:20→23:47)
[2021-01-05] MEDS: BLOOD SUGAR DIAGNOSTIC 1 EACH STRIP IN SCH ×5 (01:22→23:47)
--- NOTE | 2021-01-05 01:24 | NUR ---
manager telemarketing notes blood sugar at 12mn is 162mg/dl 3 units of regular insulin given per sliding scale , pts on gt feeding .
[2021-01-05] MEDS: PIPERACILLIN /TAZOBACTAM 3.375 G in IV D5W 50 ML IV SCH ×5 (01:26→23:28)
[2021-01-05 04:00] VITALS: BP 121/71
[2021-01-05] MEDS: IBUPROFEN 400 MG TABLET PO SCH ×3 (05:00→21:45)
[2021-01-05] MEDS: HYDROMORPHONE 1 MG/1 ML DISP.SYRIN IV PRN ×2 (05:02→22:32)
--- NOTE | 2021-01-05 05:56 | NUR ---
DEBORAH DENISE NOTES Blood sugar at 6am 1i 157 mg/dl 2 units of regular insulin given per sliding scale Addendum: 01/05/21 at 0700 by MULU BROOKS RN PTS IS TELE STATUS NOT DEBORAH
--- NOTE | 2021-01-05 06:56 | NUR ---
RN CLOSING NOTES PATIENT IN BED AWAKE, A&O X 4 ON O2 VIA NC @ 3LPM O2 SAT OF 98%, NOTED WITH NGT RIGHT NARE .30cc RESIDUAL NOTED, ONGOING FEEDING OF GLUCERNA 1.2 AT 10 CC/HR. WITH RIGHT UPPER PICC LINE, WITH TPN RUNNING @ 50CCHR PATENT INFUSING WELL, LR AT 4OCC/HR INFUSING WELL ON PATIENT'S RFA G#22, V/S STABLE, PATIENT IS AFEBRILE AT THIS TIME, NO COMPLAINTS OF PAIN AT THIS TIME. PATIENT WITH MACHADO CATHETER DRAINING WITH YELLOWISH URINE OUTPUT . WILL CONTINUE TO MONITOR FOR CHANGE OF CONDITION, SAFETY MEASURES IN PLACE: CALL LIGHT WITHIN REACH, WITH BILATERAL RESTRAINS ON BOTH UPPER ARMS TO PREVENT PULLING INVASIVE TUBING, SIDE RAILS UP X 2, BED ON LOWEST LOCKED POSITION. DUE MEDS GIVEN ORDERED, ALL NEEDS ATTENDED TOO. WILL ENDORSE TO RN DAY SHIFT FOR NATHANIEL.
--- NOTE | 2021-01-05 07:38 | NUR ---
NURSE OPENING NOTE RECEIVE REPORT FROM OUT GOING NURSE. PATIENT ON 3L OF OXYGEN VIA NC. SKIN IS INTACT WITH SURGICAL WOUND ON ABDOMEN FROM EXPLORATORY SURGERY. PATIENT IS RECEIVING LR @40ML/HR. TPN @ 50ML/HR. INFECTIOUS AND DISEASE CONSULT IN PLACE. SAFETY MEASURE IN PLACE. BED ON THE LOWEST POSITION WITH HOB ELEVATED AND 3 SIDE RAIL UP. CALL LIGHT WITHIN REACH. WILL CONTINUE TO MONITOR.
[2021-01-05 07:44] LABS: BASOPHILS % (AUTO) 0.2 % (0.0-2.0); EOSINOPHILS % (AUTO) 0.4 % (0.0-6.0); HEMATOCRIT 25 % (39-51); HEMOGLOBIN 7.9 g/dL (13.5-17.5); LYMPHOCYTES % (AUTO) 7.9 % (20.0-44.0); MEAN CORPUSCULAR HGB CONC 31 g/dl (31.0-36.0); MEAN CORPUSCULAR VOLUME 63 fL (80-96); MONOCYTES # (AUTO) 0.8 K/uL (0.1-1.30); MONOCYTES % (AUTO) 6.4 % (2.0-12.0); NEUTROPHILS # (AUTO) 10.3 K/uL (1.8-8.9); NEUTROPHILS % (AUTO) 85.1 % (43.0-81.0); PLATELET COUNT (AUTO) 177 K/uL (150-450); RED BLOOD CELL COUNT(AUTO) 3.97 MIL/uL (4.5-6.0)
[2021-01-05 08:00] VITALS: BP 128/69
[2021-01-05 08:29] LABS: CALCIUM, SERUM 8.9 mg/dL (8.5-10.1); CREATININE 0.8 mg/dL (0.6-1.3); MAGNESIUM 2.1 mg/dL (1.8-2.4); PHOSPHORUS 2.5 mg/dL (2.5-4.9); POTASSIUM 3.7 mmol/L (3.5-5.1)
[2021-01-05] MEDS ORDERED: TPN BAG #12 IV SCH (08:50)
[2021-01-05] MEDS: methylPREDNISolone SOD SUCC 40 MG/ML VIAL IV SCH (08:57)
[2021-01-05] MEDS: BENZTROPINE MESYLATE (1 MG) 1 MG TABLET PO SCH ×2 (08:58→16:46)
[2021-01-05] MEDS: ACETAMINOPHEN 325 MG TABLET PO SCH ×3 (08:58→21:45)
[2021-01-05] MEDS: PANTOPRAZOLE 40 MG/PACK PACK PO SCH (08:58)
[2021-01-05] MEDS: risperiDONE 1 MG TABLET PO SCH ×2 (08:58→16:46)
[2021-01-05] MEDS: OLANZAPINE 5 MG TABLET PO SCH (08:58)
[2021-01-05] MEDS: GABAPENTIN 400 MG CAPSULE PO SCH ×3 (08:58→16:46)
[2021-01-05] MEDS: CHOLECALCIFEROL 1,000 UNIT TABLET (VIT D3) PO SCH (08:59)
[2021-01-05] MEDS: MULTIVIT W/MINERALS 1 TAB TABLET PO SCH (08:59)
[2021-01-05] MEDS: HYDROCODONE/APAP 5/325MG TABLET PO SCH ×3 (09:02→16:47)
[2021-01-05] MEDS: IV LR 1000 ML 1,000 ML IV PRN (09:03)
[2021-01-05 12:00] VITALS: BP 136/73
[2021-01-05] MEDS ORDERED: GLUCERNA 1.2 1,000 ML BOTTLE NG SCH (12:00)
--- NOTE | 2021-01-05 12:48 | NUR ---
NURSE NOTE. WILL INCREASE TUBE FEEDING FROM 10M/HR TO 20 ML/HR PER JOHANNA YUSUF.
[2021-01-05] MEDS: FAT EMULSION 20% 500 ML in PREMIX 1 EA IV SCH (15:18)
[2021-01-05 16:00] VITALS: BP 124/79
[2021-01-05] MEDS: ATORVASTATIN 10 MG TABLET PO SCH (17:35)
[2021-01-05] MEDS: LITHIUM CARBONATE (300 MG CAP) 300 MG CAPSULE PO SCH (17:35)
[2021-01-05] MEDS: TERAZOSIN HCL 5 MG CAPSULE PO SCH (17:36)
[2021-01-05] MEDS: OLANZAPINE 10 MG TABLET PO SCH (17:36)
--- NOTE | 2021-01-05 18:51 | NUR ---
NURSE CLOSING NOTE PATIENT REMAIN IN STABLE CONDITION THROUGHOUT SHIFT. REMAIN ON L2L OF OXYGEN VIA NC WITH HUMIDIFIER. A/O X4. HAD ONE BOWEL MOVEMENT. URINE OUT PUT: 1350ML. NG TUBE FEEDING WAS INCREASE FROM 10ML TO 20ML/HR. PATIENT TOLERATE WELL WITH 20 ML. RESIDUAL. FEEDING TUBE WAS FLUSH WITH WATER PER DOCTOR ORDER. IV LIPID WAS STARTED, RUNNING AT 20.83ML/HR. BED LININ CHANGED. BED BATH WAS GIVEN. SAFETY MEASURE IN PLACE. BED ON LOWEST POSITION WITH HOB ELEVATED WITH 3 SIDE RAIL UP. WILL CONTINUE TO MONITOR. REPORT WAS GIVEN TO ON COMING NURSE.
[2021-01-05 20:00] VITALS: BP 127/78
--- NOTE | 2021-01-05 20:00 | NUR ---
CERAMIC TILE MECHANIC NOTE PATIENT IN BED AWAKE, ON O2 VIA NC @ 3LPM O2 SAT OF 100% ON TELE MONITOR SR HR OF 78, ON NGT RIGHT NOSETRILS FEEDING GLUCERNA 1.2 AT 20CC /HR . RESIDUAL of 20cc NOTED WITH RIGHT UPPER PICC LINE NOTED, WITH TPN RUNNING @ 50CCHR PATENT INFUSING WELL, IVF OF LIPIDS AT 20.833CC/HR . V/S STABLE AFEBRILE AT THIS TIME, PATIENT WITH MACHADO CATHETER. DRAINING WITH YELLOWISH URINE OUTPUT , WITH BILATERAL SOFT WRIST RESTRAINT TO PREVENT PULLING INVASIVE TUBING WILL CONTINUE TO MONITOR FOR CHANGE OF CONDITION, SAFETY MEASURE OBSERVED, CALL LIGHT WITHIN REACH.KEPT PTS CLEAN DRY AND COMFORTABLE.
--- NOTE | 2021-01-05 22:00 | NUR ---
TURPENTINE FARMER NOTES DUE MEDS GIVEN ORDERED NO ADVERSE SIDE EFFECT NOTED .
--- NOTE | 2021-01-05 22:15 | NUR ---
SET UP AND LAY OUT INSPECTOR NOTES SPOKE TO ELLIOTT-SISTER UPDATED WITH PTS CONDITION ,
--- NOTE | 2021-01-05 22:43 | NUR ---
BUILDING CLEANING SUPERVISOR NOTES C/O OF PAIN 9/10 AT HIS BACK DILAUDID 2 MG GIVEN IVP ORDERED WILL CONTINUE TO MONITOR PTS.
--- NOTE | 2021-01-05 23:55 | NUR ---
RESOLUTION AGENT NOTES BLOOD SUGAR AT 12MN IS 182MG/DL 3 UNITS OF REGULAR INSULIN GIVEN PER SLIDING SCALE WILL CHECK BS AGAIN AT 6AM PTS IS ON GT FEEDING.
[2021-01-06] VITALS: BP 126/74
[2021-01-06 04:00] VITALS: BP 109/71
[2021-01-06] MEDS ORDERED: TPN BAG #13 IV SCH (05:00)
[2021-01-06] MEDS: IBUPROFEN 400 MG TABLET PO SCH ×3 (05:06→20:08)
[2021-01-06] MEDS: PIPERACILLIN /TAZOBACTAM 3.375 G in IV D5W 50 ML IV SCH ×4 (05:07→23:47)
[2021-01-06] MEDS: HYDROMORPHONE 1 MG/1 ML DISP.SYRIN IV PRN ×2 (05:08→20:09)
[2021-01-06] MEDS: INSULIN REGULAR, HUMAN 100 UNIT/ML 3 ML VIAL SQ PRN ×4 (05:33→23:53)
[2021-01-06] MEDS: BLOOD SUGAR DIAGNOSTIC 1 EACH STRIP IN SCH ×3 (05:36→17:09)
--- NOTE | 2021-01-06 06:00 | NUR ---
telephone station repairer notes Blood sugar for 6am is 173 mg/dl 3 units of regular insulin given per sliding scale
--- NOTE | 2021-01-06 07:05 | NUR ---
PHOTONICS ENGINEER NOTE RECEIVED PT ON BED, A/Ox2 ON O2 VIA NC @ 3LPM O2 SAT OF 100% ON TELE MONITOR SR HR OF 78, ON NGT TUBE FEEDING ON RIGHT NARE, FEEDING GLUCERNA 1.2 AT 20CC /HR . NO RESIDUAL NOTED ,RIGHT UPPER ARM PICC LINE SITE CLEAN, DRY AND INTACT, TPN RUNNING @ 50CCHR PATENT INFUSING WELL, IVF OF LIPIDS AT 20.833CC/HR . V/S STABLE AFEBRILE AT THIS TIME, PATIENT WITH MACHADO CATHETER. DRAINING WITH YELLOWISH URINE OUTPUT , WITH BILATERAL SOFT WRIST RESTRAINT TO PREVENT PULLING INVASIVE TUBING WILL CONTINUE TO MONITOR FOR CHANGE OF CONDITION, SAFETY MEASURE OBSERVED, CALL LIGHT WITHIN REACH. CONTINUE TO MONITOR .
--- NOTE | 2021-01-06 07:09 | NUR ---
RN CLOSING NOTES PATIENT IN BED AWAKE, A&O X 4 ON O2 VIA NC @ 3LPM O2 SAT OF 98%, NOTED WITH NGT RIGHT NARE .30cc RESIDUAL NOTED, ONGOING FEEDING OF GLUCERNA 1.2 AT 20 CC/HR. WITH RIGHT UPPER PICC LINE, WITH TPN RUNNING @ 50CCHR PATENT INFUSING WELL, lipids at 20.833/hr .RFA G#22, V/S STABLE, PATIENT IS AFEBRILE AT THIS TIME, NO COMPLAINTS OF PAIN AT THIS TIME. PATIENT WITH MACHADO CATHETER DRAINING WITH YELLOWISH URINE OUTPUT . WILL CONTINUE TO MONITOR FOR CHANGE OF CONDITION, SAFETY MEASURES IN PLACE: CALL LIGHT WITHIN REACH, WITH BILATERAL RESTRAINS ON BOTH UPPER ARMS TO PREVENT PULLING INVASIVE TUBING, SIDE RAILS UP X 2, BED ON LOWEST LOCKED POSITION. DUE MEDS GIVEN ORDERED, ALL NEEDS ATTENDED TOO. WILL ENDORSE TO RN DAY SHIFT FOR NATHANIEL
[2021-01-06 07:25] LABS: BASOPHILS % (AUTO) 0.3 % (0.0-2.0); EOSINOPHILS % (AUTO) 0.5 % (0.0-6.0); HEMATOCRIT 26 % (39-51); HEMOGLOBIN 8.1 g/dL (13.5-17.5); LYMPHOCYTES # (AUTO) 1.2 K/uL (0.8-4.8); LYMPHOCYTES % (AUTO) 9.6 % (20.0-44.0); MEAN CORPUSCULAR HGB CONC 32 g/dl (31.0-36.0); MEAN CORPUSCULAR VOLUME 64 fL (80-96); MONOCYTES # (AUTO) 0.6 K/uL (0.1-1.30); MONOCYTES % (AUTO) 4.7 % (2.0-12.0); NEUTROPHILS # (AUTO) 10.3 K/uL (1.8-8.9); NEUTROPHILS % (AUTO) 84.9 % (43.0-81.0); PLATELET COUNT (AUTO) 204 K/uL (150-450); RED BLOOD CELL COUNT(AUTO) 4.02 MIL/uL (4.5-6.0); WHITE BLOOD COUNT (AUTO) 12.2 K/uL (4.3-11.0)
[2021-01-06 08:00] VITALS: BP 121/73
[2021-01-06 08:10] LABS: CALCIUM, SERUM 8.9 mg/dL (8.5-10.1); CREATININE 0.7 mg/dL (0.6-1.3); PHOSPHORUS 2.7 mg/dL (2.5-4.9); POTASSIUM 3.4 mmol/L (3.5-5.1)
[2021-01-06] MEDS: ACETAMINOPHEN 325 MG TABLET PO SCH ×3 (08:13→20:08)
[2021-01-06] MEDS: CHOLECALCIFEROL 1,000 UNIT TABLET (VIT D3) PO SCH (08:13)
[2021-01-06] MEDS: PANTOPRAZOLE 40 MG/PACK PACK PO SCH (08:13)
[2021-01-06] MEDS: GABAPENTIN 400 MG CAPSULE PO SCH ×3 (08:14→16:39)
[2021-01-06] MEDS: OLANZAPINE 5 MG TABLET PO SCH (08:14)
[2021-01-06] MEDS: HYDROCODONE/APAP 5/325MG TABLET PO SCH ×3 (08:14→16:39)
[2021-01-06] MEDS: risperiDONE 1 MG TABLET PO SCH ×2 (08:14→16:40)
[2021-01-06] MEDS: MULTIVIT W/MINERALS 1 TAB TABLET PO SCH (08:14)
[2021-01-06] MEDS: methylPREDNISolone SOD SUCC 40 MG/ML VIAL IV SCH (08:14)
[2021-01-06] MEDS: BENZTROPINE MESYLATE (1 MG) 1 MG TABLET PO SCH ×2 (08:15→16:40)
[2021-01-06] MEDS ORDERED: POTASSIUM CHLORIDE 20 MEQ POWDER PACKET PO ONE (09:00)
[2021-01-06] MEDS ORDERED: GLUCERNA 1.2 1,000 ML BOTTLE NG PRN (10:30)
[2021-01-06 12:00] VITALS: BP 122/78
--- NOTE | 2021-01-06 12:00 | NUR ---
RN NOTES TF INCREASED TO 30CC/HR , TOLERATING WELL, NO RESIDUAL NOTED, CONTINUE TO MONITOR.
[2021-01-06] MEDS ORDERED: POTASSIUM CL. PREMIX PERIPHER. 50 ML IV SCH (14:30)
[2021-01-06 16:00] VITALS: BP 120/76
[2021-01-06] MEDS: OLANZAPINE 10 MG TABLET PO SCH (17:01)
[2021-01-06] MEDS: ATORVASTATIN 10 MG TABLET PO SCH (17:02)
[2021-01-06] MEDS: LITHIUM CARBONATE (300 MG CAP) 300 MG CAPSULE PO SCH (17:02)
[2021-01-06] MEDS: TERAZOSIN HCL 5 MG CAPSULE PO SCH (17:02)
[2021-01-06 17:32] LABS: BAND % (MANUAL) 3 % (0.0-5.0); LYMPHOCYTES % (MANUAL) 7 % (16-48); MONOCYTES % (MANUAL) 4 % (0-11.0); NEUTROPHILS % (MANUAL) 86 (42-76)
--- NOTE | 2021-01-06 18:00 | NUR ---
RN NOTES NO SIGNIFICANT CHANGES NOTED ON THIS SHIFT, TOLERAING TF WELL, TPN DECREASED TO 30CC/HR , SUPPORTIVE FAMILY AT THE BEDSIDE, DRESSING TO ABD CLEAN, DRY AND INTACT, PT HAD ONE BM ON THIS SHIFT , WILL ENDORSE TO CISTERN ROOM WORKING SUPERVISOR NURSE FOR CONTINUITY OF CARE .
[2021-01-06 20:00] VITALS: BP 122/76
--- NOTE | 2021-01-06 20:00 | NUR ---
RECEIVED PATIENT IN BED, ALERT/ORIENTED X4, 3LPM VIA NC, COMPLAINING OF 9/10 ABDOMINAL PAIN, REQUESTING DILAUDID. ANDRES PICC LINE, TPN AT 30 ML/HR, NG TUBE FEEDING, GLUCERNA AT 30 ML/HR, NO VOMITING, FEEDING TOLERATED WELL, ABDOMINAL INCISION, DRESSING DRY AND INTACT, MACHADO CATHETER DRAINING, KEPT SAFE, CALL LIGHT WITHIN REACH.
[2021-01-07] MEDS ORDERED: TPN BAG #14 IV SCH
[2021-01-07] MEDS: BLOOD SUGAR DIAGNOSTIC 1 EACH STRIP IN SCH ×4 (00:02→17:17)
[2021-01-07 00:27] VITALS: BP 132/81
[2021-01-07 04:00] VITALS: BP 127/77
[2021-01-07] MEDS: IBUPROFEN 400 MG TABLET PO SCH ×3 (04:46→20:09)
[2021-01-07] MEDS: PIPERACILLIN /TAZOBACTAM 3.375 G in IV D5W 50 ML IV SCH ×3 (05:23→17:16)
[2021-01-07] MEDS: HYDROMORPHONE 1 MG/1 ML DISP.SYRIN IV PRN ×2 (05:30→13:45)
[2021-01-07] MEDS: INSULIN REGULAR, HUMAN 100 UNIT/ML 3 ML VIAL SQ PRN (05:36)
--- NOTE | 2021-01-07 06:46 | NUR ---
ALERT/ORIENTED X4, TITRATED O2 FROM 3 TO 2LPM VIA NC, SPO2 97%, COMPLAINING OF ABDOMINAL PAIN, GIVEN DILAUDID 2 MG IV X2 WITH ADEQUATE RELIEF. NG TUBE FEEDING, GLUCERNA AT 30 ML/HR, TOLERATED WELL, NO N/V, ABDOMINAL INCISION SITE, DRESSING DRY AND INTACT, BM X1, MACHADO CATHETER DRAINING WELL, PER DR. DURHAM OVERALL IMPROVED, CONTINUE ASPIRATION PRECAUTION, TITRATE O2
[2021-01-07 07:12] LABS: BASOPHILS # (AUTO) 0.1 K/uL (0.0-0.2); BASOPHILS % (AUTO) 0.4 % (0.0-2.0); EOSINOPHILS % (AUTO) 0.5 % (0.0-6.0); HEMATOCRIT 27 % (39-51); HEMOGLOBIN 8.4 g/dL (13.5-17.5); LYMPHOCYTES % (AUTO) 8.3 % (20.0-44.0); MEAN CORPUSCULAR HGB CONC 31 g/dl (31.0-36.0); MEAN CORPUSCULAR VOLUME 63 fL (80-96); MONOCYTES # (AUTO) 0.6 K/uL (0.1-1.30); MONOCYTES % (AUTO) 4.7 % (2.0-12.0); NEUTROPHILS # (AUTO) 10.3 K/uL (1.8-8.9); NEUTROPHILS % (AUTO) 86.1 % (43.0-81.0); PLATELET COUNT (AUTO) 197 K/uL (150-450); RED BLOOD CELL COUNT(AUTO) 4.25 MIL/uL (4.5-6.0)
[2021-01-07 07:56] LABS: CALCIUM, SERUM 9.1 mg/dL (8.5-10.1); CREATININE 0.6 mg/dL (0.6-1.3); MAGNESIUM 1.8 mg/dL (1.8-2.4); PHOSPHORUS 3.1 mg/dL (2.5-4.9); POTASSIUM 3.6 mmol/L (3.5-5.1)
[2021-01-07 08:00] VITALS: BP 91/62
[2021-01-07] MEDS ORDERED: GLUCERNA 1.2 1,000 ML BOTTLE NG PRN (08:30)
[2021-01-07] MEDS: HYDROCODONE/APAP 5/325MG TABLET PO SCH ×3 (09:15→17:17)
[2021-01-07] MEDS: PANTOPRAZOLE 40 MG/PACK PACK PO SCH (09:15)
[2021-01-07] MEDS: methylPREDNISolone SOD SUCC 40 MG/ML VIAL IV SCH (09:15)
[2021-01-07] MEDS: CHOLECALCIFEROL 1,000 UNIT TABLET (VIT D3) PO SCH (09:15)
[2021-01-07] MEDS: risperiDONE 1 MG TABLET PO SCH ×2 (09:15→17:17)
[2021-01-07] MEDS: GABAPENTIN 400 MG CAPSULE PO SCH ×3 (09:15→17:17)
[2021-01-07] MEDS: BENZTROPINE MESYLATE (1 MG) 1 MG TABLET PO SCH ×2 (09:15→17:16)
[2021-01-07] MEDS: MULTIVIT W/MINERALS 1 TAB TABLET PO SCH (09:16)
[2021-01-07] MEDS: ACETAMINOPHEN 325 MG TABLET PO SCH ×3 (09:16→20:09)
[2021-01-07] MEDS: OLANZAPINE 5 MG TABLET PO SCH (09:16)
--- NOTE | 2021-01-07 11:00 | NUR ---
PAGED NOTIFIED OF PT CHANGE OF CONDITION; DIAPHORETIC, RESTLESS, BP 80'S/50'S. PULSE 120'S, ABDOMEN DISTENDED. NGT PAUSED, NO RESIDUAL. ORDERS RECEIVED. WILL CARRY OUT.
[2021-01-07 12:00] VITALS: BP 106/69
[2021-01-07] MEDS ORDERED: IV NS 0.9% 500 ML IV ONE (12:30)
[2021-01-07] MEDS ORDERED: IV NS 0.9% 1,000 ML IV SCH (12:30)
[2021-01-07] MEDS: METOCLOPRAMIDE HCL 10 MG/2 ML VIAL IV SCH ×3 (13:04→23:58)
--- NOTE | 2021-01-07 14:00 | NUR ---
500 ML BOLUS CONCLUDED. PT TOLERATED WELL. UNABLE TO ADMINISTER ON [facility]. PHARMACY NOTIFIED
[2021-01-07 16:00] VITALS: BP 106/75
[2021-01-07] MEDS ORDERED: TPN/PPN PER PHARMACY XX PRN (16:00)
[2021-01-07] MEDS ORDERED: TPN BAG #15 IV SCH (16:30)
[2021-01-07] MEDS: LITHIUM CARBONATE (300 MG CAP) 300 MG CAPSULE PO SCH (17:17)
[2021-01-07] MEDS: ATORVASTATIN 10 MG TABLET PO SCH (17:17)
[2021-01-07] MEDS: TERAZOSIN HCL 5 MG CAPSULE PO SCH (17:19)
[2021-01-07] MEDS: MENTHOL/CETYLPYRD (CEPACOL) 1 LOZ LOZENGE PO PRN (18:44)
--- NOTE | 2021-01-07 19:35 | NUR ---
CHANGE OF SHIFT REPORT PT RESTING COMFORTABLY IN BED WITH EYES CLOSED. NO S/S OR C/O PAIN OR DISTRESS NOTED. SIDE RAILS UPX2, CALL LIGHT LEFT WITHIN REACH. PT KEPT CLEAN, DRY AND COMFORTABLE. NO SIGNIFICANT CHANGES SINCE PREVIOUS SHIFT. WILL GIVE REPORT TO JULIANN DENISE.
[2021-01-07 20:00] VITALS: BP 93/63
--- NOTE | 2021-01-07 21:30 | NUR ---
RN NOTE RECEIVED PT IN BED ALERT AND ORIENTED WITH EPISODES OF SHORTNESS OF BREATH, AND RESTLESSNESS. PT O2 SAT 82-88 % ON 2L. O2 TITRATED TO 5L WITH STILL EPISODE OF DESATURATION. KEPT HOB ELEVATED, COMPLAINED OF ABDOMINAL PAIN 11/09, SCHEDULED TYLENOL AND MOTRIN ORDERED. BP IN 93/63. HR 130S. SINUS RHYTHM. UNIVERSITY ADMINISTRATIVE ASSISTANT DR WILSON MADE AWARE, ALSO NOTIFIED REGARDING KUB XRAY RESULTS. OBTAINED ABG ORDER. WILL CONTINUE TO MONITOR.
[2021-01-08] VITALS (7 sets, daily range): BP systolic 71–104; BP diastolic 32–66
[2021-01-08] MEDS: BLOOD SUGAR DIAGNOSTIC 1 EACH STRIP IN SCH ×4 (00:07→18:22)
--- NOTE | 2021-01-08 00:50 | NUR ---
RN NOTE NOTED PT WITH BP IN 70S. CHECKED MULTIPLE TIMES. LOWEST 71/51, PATIENT ALERT AND ABLE TO COMMUNICATE NEEDS, DENIES ANY DIZZINESS. DR WILSON NOTIFIED. ORDERED TO JUST GIVE NS 100ML/HR X 1 FOR NOW AND MONITOR.
[2021-01-08] MEDS ORDERED: IV NS 0.9% 1,000 ML IV ONE (01:00)
[2021-01-08] MEDS: INSULIN REGULAR, HUMAN 100 UNIT/ML 3 ML VIAL SQ PRN ×4 (01:07→18:26)
[2021-01-08] MEDS: IBUPROFEN 400 MG TABLET PO SCH ×3 (05:25→21:16)
[2021-01-08] MEDS: METOCLOPRAMIDE HCL 10 MG/2 ML VIAL IV SCH ×3 (05:37→17:51)
[2021-01-08 06:59] LABS: BASOPHILS % (AUTO) 0.1 % (0.0-2.0); HEMATOCRIT 29 % (39-51); HEMOGLOBIN 8.8 g/dL (13.5-17.5); LYMPHOCYTES # (AUTO) 0.6 K/uL (0.8-4.8); MEAN CORPUSCULAR HGB CONC 31 g/dl (31.0-36.0); MEAN CORPUSCULAR VOLUME 64 fL (80-96); MONOCYTES # (AUTO) 0.7 K/uL (0.1-1.30); MONOCYTES % (AUTO) 2.3 % (2.0-12.0); NEUTROPHILS # (AUTO) 28.8 K/uL (1.8-8.9); NEUTROPHILS % (AUTO) 95.6 % (43.0-81.0); PLATELET COUNT (AUTO) 274 K/uL (150-450); RED BLOOD CELL COUNT(AUTO) 4.47 MIL/uL (4.5-6.0)
--- NOTE | 2021-01-08 07:31 | NUR ---
RN NOTE PT REMAINS IN BED, ALERT AND ORIENTED ABLE TO MAKES NEEDS KNOWN. NO S/SX OF DISTRESS WERE NOTED. PT CONTINUE ON 5L O2 WITH O2 SAT AT 93 %. PT VERBALIZED BREATHING IS BETTER. NGT REMAIN IN PLACE, NOTED WITH BLACK GASTRIC DRAINAGE ABOUT 250ML. HAD 2 BM. MACHADO REMAIN IN PLACE WITH MATIAS URINE OUTPUT. CONTINUE ON TPN AT 40ML/HR AND NS AT 100ML/HR. BP WENT UP TO 104/66. ENDORSED TO NEXT SHIFT NURSE.
--- NOTE | 2021-01-08 07:40 | NUR ---
RN OPENING NOTES Patient seen comfortably lying in bed, no SOB, no apparent distress noted, breathing even and unlabored, denies any pain or discomfort at this time. Call light left within reach, safety precautions in place, brakes locked, side rails up X 2, will monitor closely for any changes.
--- NOTE | 2021-01-08 07:46 | NUR ---
Received a call from laboratory spoke to Thierry, regarding patients WBC level which resulted to 30.1. Patient seen comfortably lying in bed, no apparent distress noted, afebrile, no chills, hospitalist made aware of the situation and MD acknowledged results, will continue to monitor for any changes.
[2021-01-08 07:53] LABS: WHITE BLOOD COUNT (AUTO) 30.1 K/uL (4.3-11.0)
[2021-01-08 07:56] LABS: CALCIUM, SERUM 8.9 mg/dL (8.5-10.1); CREATININE 1.1 mg/dL (0.6-1.3); PHOSPHORUS 3.7 mg/dL (2.5-4.9); POTASSIUM 3.7 mmol/L (3.5-5.1)
[2021-01-08] MEDS: GABAPENTIN 400 MG CAPSULE PO SCH ×3 (08:50→17:51)
[2021-01-08] MEDS: methylPREDNISolone SOD SUCC 40 MG/ML VIAL IV SCH (08:50)
[2021-01-08] MEDS: ACETAMINOPHEN 325 MG TABLET PO SCH ×3 (08:50→21:16)
[2021-01-08] MEDS: risperiDONE 1 MG TABLET PO SCH ×2 (08:50→17:53)
[2021-01-08] MEDS: BENZTROPINE MESYLATE (1 MG) 1 MG TABLET PO SCH ×2 (08:51→17:51)
[2021-01-08] MEDS: MULTIVIT W/MINERALS 1 TAB TABLET PO SCH (08:52)
[2021-01-08] MEDS: CHOLECALCIFEROL 1,000 UNIT TABLET (VIT D3) PO SCH (08:53)
[2021-01-08] MEDS: PANTOPRAZOLE 40 MG/PACK PACK PO SCH (08:54)
[2021-01-08] MEDS: HYDROCODONE/APAP 5/325MG TABLET PO SCH ×3 (08:56→17:52)
[2021-01-08 09:11] LABS: BAND % (MANUAL) 1 % (0.0-5.0); LYMPHOCYTES % (MANUAL) 2 % (16-48); MONOCYTES % (MANUAL) 2 % (0-11.0); NEUTROPHILS % (MANUAL) 95 (42-76)
--- NOTE | 2021-01-08 11:00 | NUR ---
Patient to be transferred to [address] [place] [address], patient and giovanni Mendenhally made aware of the situation, both verbalized understanding and gratitude. Report given at bedside to RN Jackson and Nahum for continuity of care.
--- NOTE | 2021-01-08 11:05 | NUR ---
MS RN NURSE RECEIVING/TRANSFER NOTE PT RECEIVED FROM DEBORAH. RECEIVED REPORT FROM ABDULLAHI AT PT'S BEDSIDE. PT APPEARS TO BE IN A GOOD MOOD, PLEASANT. PT HAS A ANDRES PICC TPN @ 40ML/HR, & RFA #22 NS @ 100ML/HR. PT GIVEN CALL LIGHT, AND WAS ORIENTED TO THE MS UNIT. WILL CONTINUE TO MONITOR THE PT THROUGHOUT SHIFT.
[2021-01-08] MEDS ORDERED: IV NS 0.9% 500 ML IV ONE (13:30)
[2021-01-08] MEDS ORDERED: TPN BAG #16 IV SCH (16:30)
[2021-01-08] MEDS: PIPERACILLIN /TAZOBACTAM 3.375 G in IV D5W 50 ML IV SCH ×2 (16:37→20:10)
[2021-01-08] MEDS: ATORVASTATIN 10 MG TABLET PO SCH (17:52)
[2021-01-08] MEDS: LITHIUM CARBONATE (300 MG CAP) 300 MG CAPSULE PO SCH (17:52)
[2021-01-08] MEDS: TERAZOSIN HCL 5 MG CAPSULE PO SCH (18:00)
--- NOTE | 2021-01-08 19:01 | NUR ---
MS RN NURSE CLOSING NOTE PT AWAKE, COMFORTABLE, SITTING UP IN BED WATCHING TV. PAIN MANAGED PER ORDERS. SAFETY MEASURES IN PLACE, SUCH CALL LIGHT WITH PT, RAILS UP X2, BED AT LOWEST POSITION. WILL ENDORSE TO THE NIGHT NURSE FOR NATHANIEL.
--- NOTE | 2021-01-08 19:10 | NUR ---
MS/RN OPENING NOTE RECEIVED PATIENT SLEEPING IN BED. ALERT AND ORIENTED X 4. ABLE TO MAKE NEEDS KNOWN. DENIES PAIN AT THIS TIME. CONTINUES ON O2 5L VIA NC WITH NO S/SX OF RESPIRATORY DISTRESS NOTED. IV ACCESS TO RIGHT UPPER ARM PICC LINE INTACT AND PATENT. CONTINUES ON TPN @ 40ML/HR. CONTINUES ON NS 0.9% @ 100ML/HR. CONTINUES ON IV ABX. NGT TO RIGHT NARE INTACT WITH POSITIVE PLACEMENT. CONTINUES ON NPO EXCEPT MEDS. CALL LIGHT WITHIN REACH. ASPIRATION, FALL AND SAFETY PRECAUTIONS MAINTAINED. WILL CONTINUE TO MONITOR.
[2021-01-09] MEDS: BLOOD SUGAR DIAGNOSTIC 1 EACH STRIP IN SCH ×4 (00:16→17:55)
[2021-01-09] MEDS: METOCLOPRAMIDE HCL 10 MG/2 ML VIAL IV SCH ×4 (00:47→17:37)
[2021-01-09] MEDS: PIPERACILLIN /TAZOBACTAM 3.375 G in IV D5W 50 ML IV SCH ×4 (03:22→21:32)
[2021-01-09] MEDS: IBUPROFEN 400 MG TABLET PO SCH ×2 (04:47→12:54)
--- NOTE | 2021-01-09 06:10 | NUR ---
MS/RN CLOSING NOTE PATIENT CURRENTLY SLEEPING IN BED. ALERT AND ORIENTED X 4. ABLE TO MAKE NEEDS KNOWN. DENIES PAIN AT THIS TIME. CONTINUES ON O2 5L VIA NC WITH NO S/SX OF RESPIRATORY DISTRESS NOTED. IV ACCESS TO RIGHT UPPER ARM PICC LINE AND RIGHT FOREARM INTACT AND PATENT. CONTINUES ON TPN @ 40ML/HR. CONTINUES ON NS 0.9% @ 100ML/HR. CONTINUES ON IV ABX. NGT TO RIGHT NARE INTACT WITH POSITIVE PLACEMENT. CONTINUES ON LOW INTERMITTENT SUCTION PER MD ORDER. CONTINUES ON NPO EXCEPT MEDS. CALL LIGHT WITHIN REACH. ASPIRATION, FALL AND SAFETY PRECAUTIONS MAINTAINED. WILL ENDORSE PLAN OF CARE TO ONCOMING SHIFT.
[2021-01-09] MEDS: INSULIN REGULAR, HUMAN 100 UNIT/ML 3 ML VIAL SQ PRN ×3 (06:30→17:40)
[2021-01-09 06:51] LABS: CALCIUM, SERUM 8.1 mg/dL (8.5-10.1); CREATININE 0.6 mg/dL (0.6-1.3); MAGNESIUM 1.8 mg/dL (1.8-2.4); POTASSIUM 3.2 mmol/L (3.5-5.1)
--- NOTE | 2021-01-09 07:00 | NUR ---
MS/RN NOTE RECEIVED CALL FROM LAB WITH CRITICAL LAB VALUE OF GLUCOSE 481. BLOOD FOR LAB WAS DRAWN OFF OF PICC LINE THAT HAS TPN RUNNING. RECHECKED BLOOD SUGAR AND IT IS 155. PATIENT WAS COVERED WITH ISS PER MD ORDERS. WILL CONTINUE TO MONITOR.
--- NOTE | 2021-01-09 07:48 | NUR ---
RN OPENING NOTES Patient seen comfortably lying in bed, no apparent distress noted, respirations even and unlabored, no SOB, denies any pain or discomfort at this time. Call light left within reach, safety precautions in place, brakes locked, side rails up X 2, will monitor closely for any changes.
[2021-01-09 08:00] VITALS: BP 103/64
[2021-01-09] MEDS: PANTOPRAZOLE 40 MG/PACK PACK PO SCH (08:11)
[2021-01-09] MEDS: ACETAMINOPHEN 325 MG TABLET PO SCH ×3 (08:11→21:32)
[2021-01-09] MEDS: CHOLECALCIFEROL 1,000 UNIT TABLET (VIT D3) PO SCH (08:11)
[2021-01-09] MEDS: GABAPENTIN 400 MG CAPSULE PO SCH ×3 (08:12→17:12)
[2021-01-09] MEDS: BENZTROPINE MESYLATE (1 MG) 1 MG TABLET PO SCH ×2 (08:12→17:12)
[2021-01-09] MEDS: risperiDONE 1 MG TABLET PO SCH ×2 (08:12→17:13)
[2021-01-09] MEDS: HYDROCODONE/APAP 5/325MG TABLET PO SCH ×3 (08:12→17:13)
[2021-01-09] MEDS: MULTIVIT W/MINERALS 1 TAB TABLET PO SCH (08:12)
[2021-01-09] MEDS: methylPREDNISolone SOD SUCC 40 MG/ML VIAL IV SCH (08:13)
[2021-01-09] MEDS: POTASSIUM PHOSPHATE MM 15 MMOL in IV NS 0.9% 250 ML IV SCH ×2 (08:57→12:30)
--- NOTE | 2021-01-09 10:38 | NUR ---
Around 10:35am, patient's NGTube was pulled out per patient his nose was itchy and her rubbed it and he thought he was fixing his oxygen cannula, no bleeding noted in the nares, NGTube complete and intact, per patient he does not have any pain or discomfort at site and even feels better without it. No c/o nausea, no vomiting, denies any abdominal pain or discomfort at this time, abdominal bowel sound present in all quadrants, MD made aware of the situation with new orders for STAT KUB xray today, orders noted and carried out, will monitor closely for any changes.
[2021-01-09] MEDS: HYDROMORPHONE 1 MG/1 ML DISP.SYRIN IV PRN ×2 (11:34→20:51)
--- NOTE | 2021-01-09 11:35 | NUR ---
KUB xray results relayed to MD with new orders to start patient on clear liquid diet, may crush meds and give with applesauce and to observe aspiration precaution at all times, orders noted and carried out, patient made aware of the situation, verbalized understanding and gratitude, will monitor closely for any changes.
[2021-01-09 13:11] LABS: BASOPHILS % (AUTO) 0.1 % (0.0-2.0); HEMATOCRIT 21 % (39-51); LYMPHOCYTES # (AUTO) 0.2 K/uL (0.8-4.8); LYMPHOCYTES % (AUTO) 1.5 % (20.0-44.0); MEAN CORPUSCULAR HGB CONC 31 g/dl (31.0-36.0); MEAN CORPUSCULAR VOLUME 64 fL (80-96); MONOCYTES # (AUTO) 0.1 K/uL (0.1-1.30); MONOCYTES % (AUTO) 0.7 % (2.0-12.0); NEUTROPHILS # (AUTO) 15.8 K/uL (1.8-8.9); NEUTROPHILS % (AUTO) 97.7 % (43.0-81.0); PLATELET COUNT (AUTO) 173 K/uL (150-450); RED BLOOD CELL COUNT(AUTO) 3.28 MIL/uL (4.5-6.0); WHITE BLOOD COUNT (AUTO) 16.2 K/uL (4.3-11.0)
--- NOTE | 2021-01-09 13:33 | NUR ---
Received a call from laboratory spoke to Thierry, regarding patients hgb level which resulted to 6.5. Patient seen comfortably lying in bed, no apparent distress noted, no s/s of bleeding, no unusual bleeding noted, will continue to monitor for any changes. Hospitalist paged, waiting for call back.
[2021-01-09 13:37] LABS: HEMOGLOBIN 6.5 g/dL (13.5-17.5)
[2021-01-09] MEDS ORDERED: FAT EMULSION 20% 500 ML in PREMIX 1 EA IV SCH (14:00)
--- NOTE | 2021-01-09 14:20 | NUR ---
Patient has hgb level of 6.5. MD made aware with new orders to transfuse 1PRBC, discontinue Motrin and do CBC in am, orders noted and carried out. Patient made aware of the situation and gave consent for blood transfusion, pamphlet about blood transfusion given, health education provided, patient verbalized understanding and gratitude.
--- NOTE | 2021-01-09 14:25 | NUR ---
Called pharmacy to clarify if TPN and lipids can be infused together with the blood product, spoke to Nathan and he said to stop TPN before infusing the PRBC then restart TPN and lipids after blood transfusion is done, made aware of the situation and acknowledged.
[2021-01-09] MEDS ORDERED: POTASSIUM CL. PREMIX PERIPHER. 50 ML IV SCH ×2 (15:00→21:00)
[2021-01-09 16:00] VITALS: BP 95/56
[2021-01-09] MEDS ORDERED: TPN BAG #17 IV SCH (16:30)
[2021-01-09 17:02] LABS: LYMPHOCYTES % (MANUAL) 1 % (16-48); MONOCYTES % (MANUAL) 1 % (0-11.0); NEUTROPHILS % (MANUAL) 98 (42-76)
[2021-01-09] MEDS: LITHIUM CARBONATE (300 MG CAP) 300 MG CAPSULE PO SCH (17:12)
[2021-01-09] MEDS: ATORVASTATIN 10 MG TABLET PO SCH (17:13)
[2021-01-09] MEDS: TERAZOSIN HCL 5 MG CAPSULE PO SCH (17:56)
--- NOTE | 2021-01-09 18:15 | NUR ---
Called laboratory to follow up if blood is ready spoke to Rambo and she said that blood is still on process, will follow up.
--- NOTE | 2021-01-09 19:03 | NUR ---
RN CLOSING NOTES Patient lying in bed, AO X 4, respirations even and unlabored, no SOB, remained afebrile, no apparent distress noted, denies any pain or discomfort. All medications given per MD order, tolerating well. Anti-nausea given as needed per MD order, noted with help, no vomiting noted. Patient on total parenteral nutrition infusing on his right upper arm PICC line, tolerating well, site free from any redness, no swelling, with dressings dry and intact. Insulin given per sliding scale per MD order, tolerating well, no hypo/hyperglycemia noted. Patient for blood transfusion tonight, no s/s of bleeding, no unusual bruising noted, no hematuria, no blood in stool. All needs attended, kept clean and dry, call light left within reach, safety precautions in place, brakes locked, side rails up X 2, will endorse to next shift for continuity of care.
--- NOTE | 2021-01-09 19:10 | NUR ---
MS/RN OPENING NOTE RECEIVED PATIENT RESTING IN BED. AWAKE, ALERT AND ORIENTED X 4. ABLE TO MAKE NEEDS KNOWN. DENIES PAIN AT THIS TIME. CONTINUES ON O2 5L VIA NC WITH NO S/SX OF RESPIRATORY DISTRESS NOTED. IV ACCESS TO RIGHT UPPER ARM PICC LINE AND RIGHT FOREARM #22G BOTH INTACT AND PATENT. CONTINUES ON TPN @ 40ML/HR. CONTINUES ON IV ABX. CONTINUES ON CLEAR LIQUID DIET WITH NO S/SX OF NAUSEA OR VOMITING NOTED. PATIENT TO HAVE BLOOD TRANSFUSION TONIGHT - PT AWARE AND CONSENT IN CHART. CALL LIGHT WITHIN REACH. ASPIRATION, FALL AND SAFETY PRECAUTIONS MAINTAINED. WILL CONTINUE TO MONITOR.
--- NOTE | 2021-01-09 19:20 | NUR ---
Endorsed to next shift nurse (Lalita) that blood is ready to be picked up and that TPN and lipids to be stopped prior to infusion and to restart lipids and TPN after the blood transfusion, verbalized understanding and gratitude.
[2021-01-09 20:00] VITALS: BP 109/60
[2021-01-09] MEDS ORDERED: Magnesium 1GM/D5W 100ML PREMIX 100 ML IV SCH (20:00)
[2021-01-09] MEDS: POTASSIUM CL. PREMIX PERIPHER. 50 ML IV SCH ×2 (22:16→23:10)
[2021-01-10] VITALS (14 sets, daily range): BP systolic 94–121; BP diastolic 55–83
[2021-01-10] MEDS: BLOOD SUGAR DIAGNOSTIC 1 EACH STRIP IN SCH ×5 (00:03→23:45)
[2021-01-10] MEDS: METOCLOPRAMIDE HCL 10 MG/2 ML VIAL IV SCH ×5 (00:04→23:48)
[2021-01-10] MEDS: INSULIN REGULAR, HUMAN 100 UNIT/ML 3 ML VIAL SQ PRN (00:15)
--- NOTE | 2021-01-10 01:00 | NUR ---
MS/RN NOTE PATIENT COMPLETED IV ELECTROLYTE REPLETION OF MAGNESIUM AND POTASSIUM. BLOOD TRANSFUSION STARTED AT APPROX. 0050. NO S/SX OF ADVERSE REACTION NOTED. VSS. PATIENT CURRENTLY SLEEPING IN BED. WILL CONTINUE TO MONITOR.
[2021-01-10] MEDS: HYDROMORPHONE 1 MG/1 ML DISP.SYRIN IV PRN ×5 (02:56→22:12)
[2021-01-10] MEDS: PIPERACILLIN /TAZOBACTAM 3.375 G in IV D5W 50 ML IV SCH ×4 (04:02→20:56)
--- NOTE | 2021-01-10 06:00 | NUR ---
MS/RN CLOSING NOTE PATIENT CURRENTLY SLEEPING IN BED. ALERT AND ORIENTED X 4. ABLE TO MAKE NEEDS KNOWN. DENIES PAIN AT THIS TIME. CONTINUES ON O2 5L VIA NC WITH NO S/SX OF RESPIRATORY DISTRESS NOTED. IV ACCESS TO RIGHT UPPER ARM PICC LINE AND RIGHT FOREARM #22G BOTH INTACT AND PATENT. CONTINUES ON TPN @ 40ML/HR AND LIPIDS @ 20.83ML/HR. CONTINUES ON IV ABX. CONTINUES ON CLEAR LIQUID DIET WITH NO S/SX OF NAUSEA OR VOMITING NOTED. PATIENT COMPLETED BLOOD TRANSFUSION TONIGHT THIS SHIFT WITH NO ADVERSE REACTIONS NOTED. BLOOD GLUCOSE LEVEL THIS AM IS 116. CALL LIGHT WITHIN REACH. ASPIRATION, FALL AND SAFETY PRECAUTIONS MAINTAINED. WILL ENDORSE PLAN OF CARE TO ONCOMING SHIFT.
[2021-01-10 06:09] LABS: BASOPHILS % (AUTO) 0.3 % (0.0-2.0); EOSINOPHILS % (AUTO) 0.7 % (0.0-6.0); HEMATOCRIT 22 % (39-51); LYMPHOCYTES # (AUTO) 0.9 K/uL (0.8-4.8); LYMPHOCYTES % (AUTO) 6.1 % (20.0-44.0); MEAN CORPUSCULAR HGB CONC 32 g/dl (31.0-36.0); MEAN CORPUSCULAR VOLUME 68 fL (80-96); MONOCYTES # (AUTO) 0.6 K/uL (0.1-1.30); NEUTROPHILS # (AUTO) 13.8 K/uL (1.8-8.9); NEUTROPHILS % (AUTO) 88.9 % (43.0-81.0); PLATELET COUNT (AUTO) 148 K/uL (150-450); RED BLOOD CELL COUNT(AUTO) 3.25 MIL/uL (4.5-6.0); WHITE BLOOD COUNT (AUTO) 15.5 K/uL (4.3-11.0)
[2021-01-10 06:50] LABS: CALCIUM, SERUM 8.4 mg/dL (8.5-10.1); CREATININE 0.5 mg/dL (0.6-1.3); MAGNESIUM 1.8 mg/dL (1.8-2.4); PHOSPHORUS 2.5 mg/dL (2.5-4.9); POTASSIUM 3.7 mmol/L (3.5-5.1)
--- NOTE | 2021-01-10 07:20 | NUR ---
MS RN OPENING NOTE RECEIVED PATIENT AWAKE ON BED AND A/O X4. WITH OXYGEN AT 5LPM VIA NASAL CANULA SATURATING AT 99-100%. NO SOB NOTED. WITH IV ACCESS ON THE RIGHT FORE ARM G 22 AND A ANDRES PICC LINE WITH ONGOING TPN AND LIPIDS ORDERED. PATIENT WITH MACHADO CATHETER TO URINE BAG WITH MODERATE AMOUNT OF YELLOW URINE. PATIENT HAD BLOOD TRANSFUSION LAST NIGHT TOLERATED WELL. COMPLAINT OF NAUSEA AND VOMITING AT THIS TIME. SAFETY MEASURES IN PLACE. CALL LIGHT WITHIN REACH. BED ON LOWEST AND LOCKED POSITION, SIDE RAILS UP X2. WILL CONTINUE TO MONITOR.
[2021-01-10 07:34] LABS: LYMPHOCYTES % (MANUAL) 7 % (16-48); MONOCYTES % (MANUAL) 7 % (0-11.0); NEUTROPHILS % (MANUAL) 86 (42-76)
--- NOTE | 2021-01-10 08:00 | NUR ---
MS RN NOTE SEEN BY DR. SNYDER.
[2021-01-10] MEDS: methylPREDNISolone SOD SUCC 40 MG/ML VIAL IV SCH (08:34)
[2021-01-10] MEDS: MEGESTROL ACETATE SUSP 400 MG/10 ML UDC PO SCH ×2 (08:34→17:13)
[2021-01-10] MEDS: BENZTROPINE MESYLATE (1 MG) 1 MG TABLET PO SCH ×2 (08:35→17:16)
[2021-01-10] MEDS: PANTOPRAZOLE 40 MG/PACK PACK PO SCH (08:35)
[2021-01-10] MEDS: risperiDONE 1 MG TABLET PO SCH ×2 (08:35→17:13)
[2021-01-10] MEDS: GABAPENTIN 400 MG CAPSULE PO SCH ×3 (08:35→17:14)
[2021-01-10] MEDS: HYDROCODONE/APAP 5/325MG TABLET PO SCH ×3 (08:35→17:14)
[2021-01-10] MEDS: MULTIVIT W/MINERALS 1 TAB TABLET PO SCH (08:36)
[2021-01-10] MEDS: CHOLECALCIFEROL 1,000 UNIT TABLET (VIT D3) PO SCH (08:36)
[2021-01-10] MEDS: ACETAMINOPHEN 325 MG TABLET PO SCH ×3 (08:36→20:56)
--- NOTE | 2021-01-10 13:46 | NUR ---
MS RN NOTE STILL FOR BLOOD TRANSFUSION OF 1 UNIT PRBC ORDERED. PATIENT'S VS WNL AND RECORDED. STARTED BLOOD TRANSFUSION ORDERED. TOLERATED WELL. WILL CONTINUE BT AND WILL CONTINUE MONITORING PATIENT.
[2021-01-10] MEDS: ATORVASTATIN 10 MG TABLET PO SCH (17:13)
[2021-01-10] MEDS: LITHIUM CARBONATE (300 MG CAP) 300 MG CAPSULE PO SCH (17:15)
[2021-01-10] MEDS: TERAZOSIN HCL 5 MG CAPSULE PO SCH (18:00)
--- NOTE | 2021-01-10 19:00 | NUR ---
MS RN CLOSING NOTES PATIENT AWAKE IN BED AND A/O X4. WITH OXYGEN AT 5LPM VIA NASAL CANULA SATURATING AT 99-100%. NO SOB NOTED. WITH IV ACCESS ON THE RIGHT FORE ARM G 22 AND A ANDRES PICC . PATIENT WITH MACHADO CATHETER TO URINE BAG WITH YELLOW URINE PATIENT HAD BLOOD TRANSFUSION TODAY AND TOLERATED WELL. SAFETY MEASURES IN PLACE. CALL LIGHT WITHIN REACH. BED ON LOWEST AND LOCKED POSITION, SIDE RAILS UP X2. WILL ENDORSE PATIENT FOR CONTINUITY OF CARE.
--- NOTE | 2021-01-10 19:29 | NUR ---
MS RN OPENING NOTES PATIENT AWAKE IN BED AND A/O X4. WITH OXYGEN AT 5LPM VIA NASAL CANULA SATURATING AT 99-100%. NO SOB NOTED. WITH IV ACCESS ON THE RIGHT FORE ARM G 22 AND A ANDRES PICC . PATIENT WITH MACHADO CATHETER TO URINE BAG WITH YELLOW URINE PATIENT HAD BLOOD TRANSFUSION LAST NIGHT AND TODAY TOLERATED WELL. SAFETY MEASURES IN PLACE. CALL LIGHT WITHIN REACH. BED ON LOWEST AND LOCKED POSITION, SIDE RAILS UP X2. WILL CONTINUE TO MONITOR.
--- NOTE | 2021-01-10 22:12 | NUR ---
MS RN NOTES PT REPORTED PAIN 8/10 ON A NUMERIC PAIN SCALE PRN DILAUDID GIVEN AND TOLERATED WELL. WILL CONTINUE TO MONITOR.
[2021-01-11] MEDS: HYDROMORPHONE 1 MG/1 ML DISP.SYRIN IV PRN ×3 (02:12→11:51)
[2021-01-11] MEDS: PIPERACILLIN /TAZOBACTAM 3.375 G in IV D5W 50 ML IV SCH ×4 (02:12→20:13)
--- NOTE | 2021-01-11 02:21 | NUR ---
MS RN NOTES PRN DILAUDID GIVEN FOR PAIN 8/10 ON A NUMERIC PAIN SCALE. TOLERATED WELL. WILL CONTINUE TO MONITOR.
[2021-01-11] MEDS: BLOOD SUGAR DIAGNOSTIC 1 EACH STRIP IN SCH ×4 (05:30→23:37)
[2021-01-11] MEDS: METOCLOPRAMIDE HCL 10 MG/2 ML VIAL IV SCH ×4 (05:30→23:37)
--- NOTE | 2021-01-11 06:18 | NUR ---
MS RN NOTES PRN DILAUDID GIVEN FOR PAIN TOLERATED WELL. WILL CONTINUE TO MONITOR.
--- NOTE | 2021-01-11 06:49 | NUR ---
MS RN NOTES PATIENT AWAKE IN BED AND A/O X4. WITH OXYGEN AT 5LPM VIA NASAL CANULA SATURATING AT 99-100%. NO SOB NOTED. WITH IV ACCESS ON THE RIGHT FORE ARM G 22 AND A ANDRES PICC . PATIENT WITH MACHADO CATHETER TO URINE BAG WITH YELLOW URINE . SAFETY MEASURES IN PLACE. CALL LIGHT WITHIN REACH. BED ON LOWEST AND LOCKED POSITION, SIDE RAILS UP X2. WILL ENDORSE CARE TO DAY SHIFT NURSE.
[2021-01-11 06:53] LABS: CALCIUM, SERUM 8.9 mg/dL (8.5-10.1); CREATININE 0.7 mg/dL (0.6-1.3); MAGNESIUM 1.7 mg/dL (1.8-2.4); PHOSPHORUS 2.6 mg/dL (2.5-4.9); POTASSIUM 3.9 mmol/L (3.5-5.1)
--- NOTE | 2021-01-11 07:40 | NUR ---
MS RN OPENING NOTES RECEIVED PATIENT IN BED, AWAKE, A/O X4. PATIENT ON OXYGEN THERAPY AT 5 LPM VIA NASAL CANULA, BREATHING EVEN AND UNLABORED, NO SOB NOTED AT THIS TIME. NO COMPLAINS OF PAIN. ANDRES PICC IN PLACE, R FOREARM IV ACCESS G # [address] INTACT[address] MACHADO CATH IN PLACE DRAINING YELLOW URINE. SAFETY PRECAUTIONS IN PLACE; BED N LOW POSITION AND LOCKED, RAILS UP X2, CALL LIGHT WITHIN REACH. WILL CONTINUE TO MONITOR PATIENT.
[2021-01-11 08:00] VITALS: BP 114/71
[2021-01-11] MEDS: methylPREDNISolone SOD SUCC 40 MG/ML VIAL IV SCH (08:21)
[2021-01-11] MEDS: MEGESTROL ACETATE SUSP 400 MG/10 ML UDC PO SCH ×2 (08:23→17:03)
[2021-01-11] MEDS: CHOLECALCIFEROL 1,000 UNIT TABLET (VIT D3) PO SCH (08:24)
[2021-01-11] MEDS: ACETAMINOPHEN 325 MG TABLET PO SCH ×3 (08:24→20:13)
[2021-01-11] MEDS: PANTOPRAZOLE 40 MG/PACK PACK PO SCH (08:24)
[2021-01-11] MEDS: risperiDONE 1 MG TABLET PO SCH ×2 (08:24→17:05)
[2021-01-11] MEDS: GABAPENTIN 400 MG CAPSULE PO SCH ×3 (08:25→17:05)
[2021-01-11] MEDS: HYDROCODONE/APAP 5/325MG TABLET PO SCH ×3 (08:25→17:05)
[2021-01-11] MEDS: MULTIVIT W/MINERALS 1 TAB TABLET PO SCH (08:25)
[2021-01-11] MEDS: BENZTROPINE MESYLATE (1 MG) 1 MG TABLET PO SCH ×2 (08:25→17:05)
[2021-01-11 08:39] LABS: HEMOGLOBIN 8.6 g/dL (13.5-17.5); MONOCYTES # (AUTO) 0.6 K/uL (0.1-1.30); NEUTROPHILS # (AUTO) 9.7 K/uL (1.8-8.9)
[2021-01-11 08:44] LABS: BASOPHILS % (AUTO) 0.3 % (0.0-2.0); EOSINOPHILS % (AUTO) 0.5 % (0.0-6.0); HEMATOCRIT 26 % (39-51); LYMPHOCYTES # (AUTO) 1.1 K/uL (0.8-4.8); LYMPHOCYTES % (AUTO) 9.3 % (20.0-44.0); MEAN CORPUSCULAR HGB CONC 32 g/dl (31.0-36.0); MEAN CORPUSCULAR VOLUME 70 fL (80-96); MONOCYTES % (AUTO) 5.3 % (2.0-12.0); NEUTROPHILS % (AUTO) 84.6 % (43.0-81.0); PLATELET COUNT (AUTO) 183 K/uL (150-450); WHITE BLOOD COUNT (AUTO) 11.5 K/uL (4.3-11.0)
[2021-01-11] MEDS: Magnesium 1GM/D5W 100ML PREMIX 100 ML IV SCH ×2 (09:47→10:56)
[2021-01-11] MEDS: INSULIN REGULAR, HUMAN 100 UNIT/ML 3 ML VIAL SQ PRN ×3 (11:52→23:38)
[2021-01-11 12:13] LABS: LYMPHOCYTES % (MANUAL) 8 % (16-48); MONOCYTES % (MANUAL) 5 % (0-11.0); NEUTROPHILS % (MANUAL) 87 (42-76)
[2021-01-11 16:00] VITALS: BP 102/63
[2021-01-11] MEDS: TERAZOSIN HCL 5 MG CAPSULE PO SCH (18:00)
[2021-01-11] MEDS: LITHIUM CARBONATE (300 MG CAP) 300 MG CAPSULE PO SCH (18:12)
[2021-01-11] MEDS: ATORVASTATIN 10 MG TABLET PO SCH (18:12)
--- NOTE | 2021-01-11 18:33 | NUR ---
MS RN CLOSING NOTES PATIENT REMAINS IN BED, AWAKE, A/O X4. PATIENT ON OXYGEN THERAPY AT 5 LPM VIA NASAL CANULA, BREATHING EVEN AND UNLABORED, NO SOB NOTED DURING SHIFT. PAIN TREATED WITH PRN PAIN MEDICATION PER MD ORDER. ANDRES PICC IN PLACE, R FOREARM IV ACCESS G # [address] INTACT[address] MACHADO CATH IN PLACE DRAINING YELLOW URINE WITH A DAILY OUTPUT OF 850 MLS/HR. ALL NEEDS ATTENDED DURING THE DAY. SAFETY PRECAUTIONS IN PLACE; BED N LOW POSITION AND LOCKED, RAILS UP X2, CALL LIGHT WITHIN REACH. WILL ENDORSE TO CONTRACTING OFFICER NURSE FOR NATHANIEL.
--- NOTE | 2021-01-11 19:17 | NUR ---
MS RN NOTES PATIENT IN BED, AWAKE, A/O X4. PATIENT ON OXYGEN THERAPY AT 5 LPM VIA NASAL CANULA, BREATHING EVEN AND UNLABORED, NO SOB NOTED DURING SHIFT. ANDRES PICC IN PLACE, R FOREARM IV ACCESS G # [address] INTACT[address] MACHADO CATH IN PLACE DRAINING YELLOW URINE. ALL NEEDS ATTENDED AT THIS TIME. SAFETY PRECAUTIONS IN PLACE; BED N LOW POSITION AND LOCKED, RAILS UP X2, CALL LIGHT WITHIN REACH. WILL CONTINUE TO MONITOR.
[2021-01-11 20:00] VITALS: BP 107/71
[2021-01-11 22:11] VITALS: BP 107/71
[2021-01-12] MEDS: PIPERACILLIN /TAZOBACTAM 3.375 G in IV D5W 50 ML IV SCH ×4 (02:05→20:42)
[2021-01-12] MEDS: INSULIN REGULAR, HUMAN 100 UNIT/ML 3 ML VIAL SQ PRN ×4 (05:43→23:34)
[2021-01-12] MEDS: BLOOD SUGAR DIAGNOSTIC 1 EACH STRIP IN SCH ×4 (05:51→23:32)
[2021-01-12] MEDS: METOCLOPRAMIDE HCL 10 MG/2 ML VIAL IV SCH ×4 (05:52→23:40)
--- NOTE | 2021-01-12 06:31 | NUR ---
MS RN NOTES PATIENT IN BED, AWAKE, A/O X4. PATIENT ON OXYGEN THERAPY AT 4 LPM VIA NASAL CANULA, BREATHING EVEN AND UNLABORED, NO SOB NOTED DURING SHIFT. ANDRES PICC IN PLACE, R FOREARM IV ACCESS G # [address] INTACT[address] MACHADO CATH IN PLACE DRAINING YELLOW URINE WITH TOTAL OUTPUT O 900ML DURING THE SHIFT.. ALL NEEDS ATTENDED THROUGHOUT THE SHIFT. ALL DUE MEDS GIVEN AND TOLERATED WELL.SAFETY PRECAUTIONS IN PLACE; BED N LOW POSITION AND LOCKED, RAILS UP X2, CALL LIGHT WITHIN REACH. WILL ENDORSE CARE TO DAY SHIFT NURSE.
[2021-01-12 07:05] LABS: CALCIUM, SERUM 8.6 mg/dL (8.5-10.1); CREATININE 0.6 mg/dL (0.6-1.3); MAGNESIUM 1.9 mg/dL (1.8-2.4); PHOSPHORUS 2.4 mg/dL (2.5-4.9); POTASSIUM 3.8 mmol/L (3.5-5.1)
[2021-01-12 08:00] VITALS: BP 95/61
[2021-01-12] MEDS: MULTIVIT W/MINERALS 1 TAB TABLET PO SCH (08:53)
[2021-01-12] MEDS: PANTOPRAZOLE 40 MG/PACK PACK PO SCH (08:53)
[2021-01-12] MEDS: MEGESTROL ACETATE SUSP 400 MG/10 ML UDC PO SCH ×2 (08:53→18:02)
[2021-01-12] MEDS: BENZTROPINE MESYLATE (1 MG) 1 MG TABLET PO SCH ×2 (08:53→18:02)
[2021-01-12] MEDS: methylPREDNISolone SOD SUCC 40 MG/ML VIAL IV SCH (08:53)
[2021-01-12] MEDS: CHOLECALCIFEROL 1,000 UNIT TABLET (VIT D3) PO SCH (08:54)
[2021-01-12] MEDS ORDERED: NEUTRA PHOS 1 POWD.PACKET PO ONE ×2 (09:00→17:00)
[2021-01-12] MEDS: ACETAMINOPHEN 325 MG TABLET PO SCH ×3 (09:21→20:45)
[2021-01-12] MEDS: risperiDONE 1 MG TABLET PO SCH ×2 (10:12→17:00)
[2021-01-12] MEDS: HYDROCODONE/APAP 5/325MG TABLET PO SCH ×3 (10:12→18:01)
[2021-01-12] MEDS: GABAPENTIN 400 MG CAPSULE PO SCH ×3 (10:13→17:00)
--- NOTE | 2021-01-12 12:25 | NUR ---
ON ROOM AIR O2 SAT 86%.
[2021-01-12 16:00] VITALS: BP 91/61
[2021-01-12] MEDS: LITHIUM CARBONATE (300 MG CAP) 300 MG CAPSULE PO SCH (18:00)
--- NOTE | 2021-01-12 18:00 | NUR ---
NEUTRA PHOS GIVEN FOR LOW PHOS LEVEL.SOME MEDS HELD DUE TO LOW BP.
[2021-01-12] MEDS: TERAZOSIN HCL 5 MG CAPSULE PO SCH (18:01)
[2021-01-12] MEDS: ATORVASTATIN 10 MG TABLET PO SCH (18:02)
--- NOTE | 2021-01-12 19:45 | NUR ---
MS RN NOTES RECEIVED ON BED A/O X4,BREATHING NON LABORED O2 IN USED AT 4L/NC TO KEEP O2 SAT ABOVE 90%.WITH RIGHT UPPER ARM PICC LINE,TWO PORTS CLOGGED.SALINE LOCK RIGHT FOREARM #[address] ,FALL PRECAUTION OBSERVED,BED ON LOWEST POSITION AND LOCKED.CALL LIGHT IN REACH,NEEDS ANTICIPATED.
[2021-01-12 20:00] VITALS: BP 104/70
[2021-01-12] MEDS: HYDROMORPHONE 1 MG/1 ML DISP.SYRIN IV PRN (23:07)
--- NOTE | 2021-01-12 23:07 | NUR ---
MS RN NOTES PAIN MANAGEMENT C/O ABDOMINAL PAIN 9/10 ON PAIN SCALE,DILAUDID 2 MG IV GIVEN ORDERED FOR SEVERE PAIN
--- NOTE | 2021-01-13 | NUR ---
MS RN NOTES ACCU-CHECK BLOOD SUGAR CHECK 141,COVERED WITH HUMULIN R 2 UNITS PER SLIDING SCALE.
[2021-01-13] MEDS: PIPERACILLIN /TAZOBACTAM 3.375 G in IV D5W 50 ML IV SCH ×3 (02:54→15:38)
--- NOTE | 2021-01-13 03:00 | NUR ---
MS RN NOTES DUE IV CESAR HERR
[2021-01-13] MEDS: HYDROMORPHONE 1 MG/1 ML DISP.SYRIN IV PRN ×2 (05:08→11:39)
--- NOTE | 2021-01-13 05:08 | NUR ---
MS RN NOTES PAIN MANAGEMENT C/O ABDOMINAL PAIN 8/10 ON PAIN SCALE.DILAUDID 2MD IV GIVEN ORDERED.MONITOR FOR OVERSEDATION.
[2021-01-13] MEDS: BLOOD SUGAR DIAGNOSTIC 1 EACH STRIP IN SCH ×2 (05:23→12:40)
[2021-01-13] MEDS: INSULIN REGULAR, HUMAN 100 UNIT/ML 3 ML VIAL SQ PRN ×2 (05:27→12:40)
--- NOTE | 2021-01-13 05:30 | NUR ---
MS RN NOTES IN BED SLEEPING,PAIN MANAGEMENT EFFECTIVE,NO NAUSEA,VOMITING NOTED,MACHADO CATH DRAINS WELL,IN NO ACUTE DISTRESS.
[2021-01-13] MEDS: METOCLOPRAMIDE HCL 10 MG/2 ML VIAL IV SCH ×2 (06:01→12:35)
--- NOTE | 2021-01-13 07:20 | NUR ---
MS DENISE OPENING NOTES RECEIVED PATIENT LAYING IN BED. A/O X4. PATIENT WITH REGULAR AND UNLABORED BREATHING ON ROOM AIR, TOLERATED WELL. NO SIGNS AND SYMPTOMS OF DISTRESS NOTED. NO COMPLAIN OF PAIN OR DISCOMFORT AT THIS TIME. PATIENT IS BED BOUND DUE TO FALL RISK. IV ACCESS ANDRES PICC LINE AND RFA G #22 SL. ACCESS PATENT AND INTACT. SAFETY PRECAUTIONS IN PLACE WITH BED LOCKED AND AT LOWEST POSITION. SIDERAILS UP X2 CALL LIGHT WITHIN REACH AT ALL TIMES WILL CONTINUE TO MONITOR. Addendum: 01/13/21 at 0911 by SANDRA MEDINA RN NASAL CANNULA @ 4L
[2021-01-13 07:35] LABS: CALCIUM, SERUM 8.7 mg/dL (8.5-10.1); CREATININE 0.5 mg/dL (0.6-1.3); MAGNESIUM 1.7 mg/dL (1.8-2.4); PHOSPHORUS 2.9 mg/dL (2.5-4.9); POTASSIUM 3.7 mmol/L (3.5-5.1)
[2021-01-13 08:00] VITALS: BP 115/75
[2021-01-13] MEDS: methylPREDNISolone SOD SUCC 40 MG/ML VIAL IV SCH (08:25)
[2021-01-13] MEDS: MULTIVIT W/MINERALS 1 TAB TABLET PO SCH (08:25)
[2021-01-13] MEDS: BENZTROPINE MESYLATE (1 MG) 1 MG TABLET PO SCH (08:25)
[2021-01-13] MEDS: PANTOPRAZOLE 40 MG/PACK PACK PO SCH (08:25)
[2021-01-13] MEDS: risperiDONE 1 MG TABLET PO SCH (08:25)
[2021-01-13] MEDS: GABAPENTIN 400 MG CAPSULE PO SCH ×2 (08:25→12:34)
[2021-01-13] MEDS: CHOLECALCIFEROL 1,000 UNIT TABLET (VIT D3) PO SCH (08:26)
[2021-01-13] MEDS: ACETAMINOPHEN 325 MG TABLET PO SCH ×2 (08:26→12:35)
[2021-01-13] MEDS: MEGESTROL ACETATE SUSP 400 MG/10 ML UDC PO SCH (08:26)
[2021-01-13] MEDS: HYDROCODONE/APAP 5/325MG TABLET PO SCH ×2 (09:37→14:32)
[2021-01-13] MEDS: Magnesium 1GM/D5W 100ML PREMIX 100 ML IV SCH ×2 (09:49→10:51)
[2021-01-13] MEDS ORDERED: Magnesium 1GM/D5W 100ML PREMIX 100 ML IV SCH (10:30)
[2021-01-13 16:00] VITALS: BP 114/71
--- NOTE | 2021-01-13 17:07 | NUR ---
MS SANITARY ENGINEER NOTES PATIENT A/O X4 NO COMPLAINS OF PAIN. NO APPARENT DISTRESS NOTED PATIENT GIVEN DISCHARGE INSTRUCTIONS AND VERBALIZED UNDERSTANDING, PER PATIENT HIS NIECE IS SIGNING FOR HIM NIECE NOT PRESENT AT BEDSIDE TWO RNS SIGNED DISCHARGE PAPERWORK AT BEDSIDE. IV ACCESS REMOVED (PERIPHERAL LINE AND PICC LINE) SKIN DRY AND INTACT, COVERED WITH DRY DRESSING NO EXCESSIVE BLEEDING NOTED. PATIENT ABDOMINAL INCISION SIGNS AND SYMPTOMS FREE OF INFECTION WITH 37 HZANNA. PICTURE PUT IN CHART. MACHADO CATHETER REMOVED INTACT AND COMPLETE NO BLADDER DISTENTION NOTED. DENIES ANY BLADDER PAIN OR DISCOMFORT NO GRIMACING WHEN BLADDER PALPATED. URINAL PROVIDED. [phone] REPORT GIVEN TO NIALL DENISE. SALON MANAGER CAME AND TOOK PATIENT FROM UNIT BED [facility] AT 1710. FOR TRANSPORTATION VIA AMBULANCE
== END 2021-01-13 17:00 | DRG 335 ==
LOC: ER 20:34 → TRANSITION 12-23 05:42 → TELE1 12-23 05:56 → ICU 12-24 17:14 → MED 12-26 10:32 → TELE 12-26 21:59 → ICU 12-26 23:31 → TELE-TD 12-28 14:46 → TELE1 12-29 09:02 → MED 01-08 11:23
PROVIDERS: ADMIT Nurse Practitioner Acute Care; ATTEND Internal Medicine
PROC: 02HV33Z Insertion of Infusion Device into Superior Vena Cava, Percutaneous Approach (ICD-10-PCS; 2020-12-22)
PROC: B548ZZA Ultrasonography of Superior Vena Cava, Guidance (ICD-10-PCS; 2020-12-22)
PROC: 0DN80ZZ Release Small Intestine, Open Approach (ICD-10-PCS; principal; 2020-12-24)
PROC: 0DNN0ZZ Release Sigmoid Colon, Open Approach (ICD-10-PCS; 2020-12-24)
PROC: 5A1935Z Respiratory Ventilation, Less than 24 Consecutive Hours (ICD-10-PCS; 2020-12-24)
PROC: 0BH17EZ Insertion of Endotracheal Airway into Trachea, Via Natural or Artificial Opening (ICD-10-PCS; 2020-12-24)
PROC: 02HV33Z Insertion of Infusion Device into Superior Vena Cava, Percutaneous Approach (ICD-10-PCS; 2021-01-01)
PROC: B548ZZA Ultrasonography of Superior Vena Cava, Guidance (ICD-10-PCS; 2021-01-01)
PROC: 30233N1 Transfusion of Nonautologous Red Blood Cells into Peripheral Vein, Percutaneous Approach (ICD-10-PCS; 2021-01-09)
DX: K56.50 Intestinal adhesions [bands], unspecified as to partial versus complete obstruction (principal); N17.0 Acute kidney failure with tubular necrosis; J15.9 Unspecified bacterial pneumonia; J96.21 Acute and chronic respiratory failure with hypoxia; E87.0 Hyperosmolality and hypernatremia; D68.59 Other primary thrombophilia; E44.0 Moderate protein-calorie malnutrition; C78.7 Secondary malignant neoplasm of liver and intrahepatic bile duct; J44.1 Chronic obstructive pulmonary disease with (acute) exacerbation; C25.9 Malignant neoplasm of pancreas, unspecified; E22.2 Syndrome of inappropriate secretion of antidiuretic hormone; J44.0 Chronic obstructive pulmonary disease with (acute) lower respiratory infection; J98.11 Atelectasis; R18.8 Other ascites; F11.20 Opioid dependence, uncomplicated; J84.9 Interstitial pulmonary disease, unspecified; K56.7 Ileus, unspecified; E11.649 Type 2 diabetes mellitus with hypoglycemia without coma; E86.0 Dehydration; E87.6 Hypokalemia; N40.0 Benign prostatic hyperplasia without lower urinary tract symptoms; Z20.822 Contact with and (suspected) exposure to COVID-19; Z98.1 Arthrodesis status; Z96.89 Presence of other specified functional implants; E11.65 Type 2 diabetes mellitus with hyperglycemia; E83.39 Other disorders of phosphorus metabolism; E86.1 Hypovolemia; D69.6 Thrombocytopenia, unspecified; N18.9 Chronic kidney disease, unspecified; D64.9 Anemia, unspecified; D72.829 Elevated white blood cell count, unspecified; K40.20 Bilateral inguinal hernia, without obstruction or gangrene, not specified as recurrent; Y95 Nosocomial condition; G89.4 Chronic pain syndrome; G89.3 Neoplasm related pain (acute) (chronic); F25.9 Schizoaffective disorder, unspecified; Z51.5 Encounter for palliative care
CPT/HCPCS: 31720; 36415; 36569; 36600; 70450-TC; 71045-TC; 72125-TC; 74018; 74250-TC; 80048-TC; 80053-TC; 80061-TC; 80076-TC; 82140-TC; 82728-TC; 82803-TC; 82962-TC; 83540-TC; 83605-TC; 83735-TC; 84100-TC; 84478-TC; 84484-TC; 85025-TC; 85730-TC; 86850-TC; 87040-TC; 87081-TC; 92521; 92526; 92611-TC; 93307-TC; 94002-TC; 94003-TC; 94760-TC; 94799-TC; 97116-TC; 97530-TC; A4216; A4217; A6253; A9563; C9113; C9803; G0378; J0690; J1170; J1644; J1815; J2250; J2270; J2370; J2405; J2543; J2704; J2765; J2916; J2920; J2930; J3010; J3475; J3480; J3490; J7030; J7040; J7050; J7060; J7120; P9016; Q9963; Q9967; U0003